=== PATIENT | male | born 1965 | race African-American/Black ===

== ENCOUNTER → 2021-11-05 13:19 | Outpatient (REF) | payer MEDICARE, MEDICAID, SELFPAY ==
--- NOTE | 2021-11-05 13:24 | ECG_ITS ---
Hook-up date: 2021-11-05 13:32:00 Duration: 25:00:00 Test Indications: ABNORMAL EKG Medications: 312180 QRS complexes 14 Ventricular ectopics which represent <1 % of total QRS comp. 95826 Supraventricular ectopics which represent 10 % of total QRS comp. * Paced QRS complexs which represent % of total QRS comp. VENTRICULAR ECTOPY 12 Isolated 0 Bigeminal Cycles 1 Couplets 0 Runs 0 Beats in Runs * Beats LONGEST at * BPM at :: -- * Beats FASTEST at * BPM at :: -- SUPRAVENTRICULAR ECTOPY 20055 Isolated 69 Couplets 103 Runs 335 Beats in Runs 5 Beats LONGEST at 112 BPM at 13:33:20 2021-11-05 3 Beats FASTEST at 118 BPM at 12:04:17 2021-11-06 HEART RATES 45 MIN at 04:29:08 2021-11-06 76 AVG 129 MAX at 11:27:23 2021-11-06 LONGEST RR 1.4000 secs at 07:16:08 2021-11-06 S-T LEVELS Channel 1 - 128 mm at 13:32:00 2021-11-05 - 128 mm at 13:32:00 2021-11-05 Channel 2 - 128 mm at 13:32:00 2021-11-05 - 128 mm at 13:32:00 2021-11-05 Channel 3 - 128 mm at 03:25:11 -- - 128 mm at 03:25:11 Basic rhythm Normal sinus rhythm No long pause or profound bradycardia Frequent Premature atrial complexes , total burden of 11% Very short bursts of SVEs, 3-5 beats Patient did not report any symptoms in the diary Referred By: Jaxon Osborne Overread By: REINA GAINES MD
== END ==
LOC: HO.CARD 13:19
PROVIDERS: PCP Internal Medicine; Visit Provider Internal Medicine
DX: R94.31 Abnormal electrocardiogram [ECG] [EKG] (principal); I49.1 Atrial premature depolarization
CPT/HCPCS: 93225; 93226

== ENCOUNTER 2022-02-19 13:19 | Outpatient (REF) | payer MEDICARE, MEDICAID, SELFPAY ==
--- NOTE | ~2022-02-19 | US_ITS ---
EXAMINATION: US CHEST CLINICAL INFORMATION: Growth of right lower anterior chest. COMPARISON: None TECHNIQUE: Limited ultrasound imaging of right anterior chest 6 mm from the right nipple was performed. FINDINGS: Limited imaging through the right anterior chest wall reveals no focal mass or fluid collection. US/US chest IMPRESSION: Unremarkable limited right anterior chest wall imaging. No focal mass seen.
== END 2022-02-19 13:20 | disposition home or self-care (01) ==
LOC: HO.US 13:19
PROVIDERS: Visit Provider Internal Medicine
DX: D49.2 Neoplasm of unspecified behavior of bone, soft tissue, and skin (principal)
CPT/HCPCS: 76604

== ENCOUNTER 2022-09-22 14:32 | Outpatient (REF) | payer MEDICARE, MEDICAID, SELFPAY | END 2022-09-22 14:33 | disposition home or self-care (01) | LOC: HO.SH 14:32 | PROVIDERS: Visit Provider Internal Medicine | DX: Z01.118 Encounter for examination of ears and hearing with other abnormal findings (principal); H93.293 Other abnormal auditory perceptions, bilateral | CPT/HCPCS: 92557; 92567; 92588 ==

== ENCOUNTER 2023-01-07 13:41 | Outpatient (REF) | payer MEDICARE, MEDICAID, SELFPAY ==
--- NOTE | ~2023-01-07 | XR_ITS ---
EXAMINATION: XR CHEST CLINICAL INFORMATION: Chest pain COMPARISON: None TECHNIQUE: 2 views of the chest were obtained. FINDINGS: There is hyperinflation. No pneumothorax, pleural reaction, infiltrate, or effusion. The heart is normal in size. The vascularity is normal. The costophrenic sulci are clear. The hilar and mediastinal contours are normal. No acute bony abnormality. There are mild degenerative changes spine. XR/XR chest 2V IMPRESSION: Hyperinflation. Lungs clear.
== END 2023-01-07 13:42 | disposition home or self-care (01) ==
LOC: HO.XRAY 13:41
PROVIDERS: PCP Internal Medicine; Visit Provider Family Medicine
DX: R07.9 Chest pain, unspecified (principal)
CPT/HCPCS: 71046

== ENCOUNTER → 2023-02-03 10:31 | Outpatient (BNVA) | payer MEDICARE, MEDICAID, SELFPAY | PROVIDERS: PCP Internal Medicine; Visit Provider Internal Medicine | DX: I49.1 Atrial premature depolarization (principal); R07.2 Precordial pain | CPT/HCPCS: 93005; 99202 ==

== ENCOUNTER 2024-10-06 15:54 | Outpatient (REF) | payer MEDICARE, MEDICAID, SELFPAY ==
[2024-10-06 17:48] LABS: MANUAL DIFF FLAG NO
[2024-10-06 17:55] LABS: Basophils Percent Auto 0.6 % (0-2); Eosinophils Absolute Auto 0.1 X10*3/uL (0.0-0.4); Eosinophils Percent Auto 2.9 % (0-4); Hematocrit 42.6 % (42.0-52.0); Imm Gran Abs Auto 0.01 X10*3/uL (0.00-0.03); Imm Gran Pct Auto 0.3 % (0.0-0.4); Lymphocytes Absolute Auto 1.6 X10*3/uL (1.2-4.9); Lymphocytes Percent Auto 48.4 % (20-40); Mean Corpuscular HGB Conc 32.9 g/dl (31.0-36.0); Mean Corpuscular Hemoglobin 29.2 pg (27.0-33.0); Mean Corpuscular Volume 88.9 fL (80.0-98.0); Mean Platelet Volume 11.4 fL (9.4-12.4); Monocytes Absolute Auto 0.3 X10*3/uL (0.1-1.2); Monocytes Percent Auto 9.7 % (2-11); Neutrophils Absolute Auto 1.3 x10*3/uL (2.0-8.3); Neutrophils Percent Auto 38.1 % (45-73); Platelet Count 143 X10*3/uL (160-400); Red Blood Count 4.79 X10*6/uL (4.60-5.80); Red Cell Distribution Width 12.4 % (11.0-16.0); White Blood Count 3.4 X10*3/uL (4.8-10.8)
[2024-10-06 18:16] LABS: Cholesterol 170 mg/dL (<200); HDL Cholesterol 74 mg/dL (>40); LDL Cholesterol Calculated 86 mg/dL (<100); Triglycerides 52 mg/dL (<150)
[2024-10-06 18:31] LABS: TSH reflex Free T4 0.82 uIU/mL (0.32-4.0)
[2024-10-09 08:23] LABS: HIV AB/AG Nonreactive (Nonreactive); HIV Num 1 0.07 S/CO (0.00-0.99); ~HepC Num1 0.21 S/CO (0.00-0.79); ~Hepatitis B Surface Antibody REACTIVE (Nonreactive); ~Hepatitis C Antibody Nonreactive (Nonreactive)
== END 2024-10-06 15:55 | disposition home or self-care (01) ==
LOC: HO.CHCLDS 15:54
PROVIDERS: Visit Provider Internal Medicine
DX: I10 Essential (primary) hypertension (principal); Z11.59 Encounter for screening for other viral diseases; Z11.3 Encounter for screening for infections with a predominantly sexual mode of transmission; Z11.4 Encounter for screening for human immunodeficiency virus [HIV]; A64 Unspecified sexually transmitted disease; M15.9 Polyosteoarthritis, unspecified; C61 Malignant neoplasm of prostate; D69.6 Thrombocytopenia, unspecified; Z72.89 Other problems related to lifestyle
CPT/HCPCS: 36415; 80061; 84443; 85025; 86704; 86706; 86803; 87340; 87389

== ENCOUNTER 2024-10-06 17:26 | Outpatient (REF) | payer MEDICARE, MEDICAID, SELFPAY ==
[2024-10-06 18:55] LABS: HIV AB/AG Nonreactive (Nonreactive); HIV Num 1 0.06 S/CO (0.00-0.99)
[2024-10-09 08:57] LABS: HBS Num1 55.14 mIU/mL (0-7.99); HBc Num1 0.24 S/CO (0.00-0.79); Hepatitis B Core Antibody Nonreactive (Nonreactive); Hepatitis B Surface Antigen Negative (Negative); ~HepC Num1 0.22 S/CO (0.00-0.79); ~Hepatitis B Surface Antibody REACTIVE (Nonreactive); ~Hepatitis C Antibody Nonreactive (Nonreactive)
== END 2024-10-06 17:27 | disposition home or self-care (01) ==
LOC: HO.LNP 17:26
PROVIDERS: Visit Provider Internal Medicine
DX: Z13.89 Encounter for screening for other disorder (principal)
CPT/HCPCS: 86704; 86706; 86803; 87340; 87389

== ENCOUNTER 2024-10-24 10:00 | Outpatient (AMB) | payer MEDICARE, MEDICAID, SELFPAY ==
--- NOTE | 2024-10-24 10:04 | MHC.OFFVIS ---
Intake Visit Reasons: Prostate Ca/BPH/Elevated PSA(Fam HX Prostate Ca) Intake Note: Patient is present for PROSTATE CA/BPH/ELEVATED PSA Urology Medication:NONE Antibiotic Allergy:NONE Blood Thinner:NONE Automatic Washer Mechanic Required: No Allergies No Known Allergies Allergy (Verified 10/24/24 10:05) HPI Comments Details: Alin is a pleasant male. He is a patient of . He seen for the following urologic conditions - prostate cancer Had been seen at [facility] with active surveillance At some point treatment options had been encouraged. He was scheduled for external beam radiation with short-term hormone management. Based upon a review of his notes it appears that he has low volume, grade group 1 prostate cancer. Would recommend continue surveillance. Given GnRH administered August can repeat lab work in January. Prostate cancer - Grade Group grade group 1 NCCN 08/19, 04/24 Adenocarcinoma of the prostate - NCCN low risk group - PSA at diagnosis 4.0 Diagnosis was reached by - needle biopsy Biopsy Date: 04/24 Histologic grade: [place] score: 3+3 Positive Biopsies: 2 Negative Biopsies: 10 (%) Positive: Low/1200 Associated Features: Negative TNM Classification of Malignant Tumours (TNM) - T1c Staging Imaging - PET-CT negative Attempt at Prolaris testing made. Insufficient tumor for analysis. Therapeutic plan: Repeat lab work in January. Continue active surveillance [facility] Medical History (Updated 10/24/24 @ 11:03 by Neri Lau MD) Prostate cancer OA (osteoarthritis) BPH (benign prostatic hyperplasia) Elevated PSA Surgical History (Updated 10/18/24 @ 10:38 by Izabel Dozier Jessica) History of left hip replacement History of right hip replacement History of orthopedic surgery Family History (Updated 02/03/23 @ 10:41 by Estrellita Riojas) Mother No problems noted. Father Prostate cancer Social History (Updated 02/03/23 @ 10:41 by Estrellita Riojas) Alcohol intake: never Patient Tobacco Use Status: Former Tobacco user Review of Systems Const Denies chills and Denies fever(s) Card Reports no additional complaints and Denies syncope Resp Denies cough GI Denies abdominal pain and Denies heartburn Reports as per HPI and Denies change in libido Neuro Denies syncope Psych Denies change in libido Endo Denies change in libido Physical Exam Const General: cooperative, healthy appearing, comfortable and no acute distress Orientation/consciousness: patient oriented x3 HEENT Face and sinus: Yes normal facial exam Mouth: moist mucous membranes Neck Neck: Yes normal visual inspection, Yes full ROM and Yes trachea midline Chest Chest palpation & inspection: normal inspection of the chest Resp Effort & Inspection: normal respiratory effort, able to speak in complete sentences and no respiratory distress GI Inspection: Yes normal to inspection Back/Spine/Pelvis Cervical Spine: normal cervical lordosis Thoracic/Lumbar Spine: thoracic and lumbar spine normal to inspection Skin General skin exam: no rashes or lesions noted Neuro General: patient oriented x3, gait normal, tone normal and moves all extremities Extrem General: Yes normal to inspection and Yes capillary refill normal Results AMB Urinalysis, Automated UA Leukoctes 0 Ghazala/uL Last Edit by mUesh Malloy CCM on 10/24/24 10:19 UA Nitrite Negative Last Edit by Umesh Malloy CCM on 10/24/24 10:19 UA Urobilinogen 0.2 mg/dL Last Edit by Umesh Malloy [facility] on 10/24/24 10:19 UA Protein 15 mg/dL Last Edit by Umesh Malloy [facility] on 10/24/24 10:19 UA pH 6.0 Last Edit by Umesh Malloy [facility] on 10/24/24 10:19 UA Blood 0 Nikolai/uL Last Edit by Umesh Malloy [facility] on 10/24/24 10:19 UA Specific [place] 1.025 Last Edit by Umesh Malloy CCM on 10/24/24 10:19 UA Ketone Negative Last Edit by Umesh Malloy CCM on 10/24/24 10:19 UA Bilirubin 0 mg/dL Last Edit by Umesh Malloy [facility] on 10/24/24 10:19 UA Glucose 0 mg/dL Last Edit by Umesh Malloy [facility] on 10/24/24 10:19 Results Reviewed Results Reviewed: Laboratory Last Values Urine pH (Auto) 6.0 10/24/24 10:19 Specific [place] (Auto) 1.025 10/24/24 10:19 Urine Protein (Auto) 15 mg/dL 10/24/24 10:19 Glucose (UA)(Auto) 0 mg/dL 10/24/24 10:19 Urine Ketones (Auto) Negative 10/24/24 10:19 Urine Blood (Auto) 0 Nikolai/uL 10/24/24 10:19 Urine Nitrite (Auto) Negative 10/24/24 10:19 Urine Bilirubin (Auto) 0 mg/dL 10/24/24 10:19 Urine Urobilinogen (Auto) 0.2 mg/dL 10/24/24 10:19 Leukocyte Esterase (Auto) 0 Ghazala/uL 10/24/24 10:19 Assessment & Plan Assessment & Plan (1) Prostate cancer: Comment: Doug 6 on 12/13 Biopsy Sites Code(s): C61 - Malignant neoplasm of prostate Category: Medical Plan Four month follow-up PSA and testosterone G Code G2211 Has been applied in accordance with CMS guidelines ( Medicare and Medicaid programs; [place] 2023 Payment Policies ) to convey the inherent complexity in ongoing patient care within the urology clinic. This deliberate utilization aligns with the visits complexity associated with medical care services serving as a focal point for necessary healthcare, addressing the patient's singular serious or complex condition. This judicious use ensure was appropriate reimbursement, especially in the context of managing such conditions within our specialized, longitudinal urologic practice. This patient has a complex and chronic urologic condition that requires longitudinal follow-up. CMS, Medicare and Medicaid programs; [place] 2023 Payment Policies Fed. Reg 88 (81): 51184-93677 (Jun.072022) Orders: Orders AMB Urinalysis Automated Today Z13.9 - Encounter for screening, unspecified Prostate Specific Antigen 4 Months C61 - Malignant neoplasm of prostate Testosterone, Total 4 Months C61 - Malignant neoplasm of prostate Patient Instructions: Imaging studies, laboratory and physical exam results were discussed and reviewed in detail. No major barriers to patient understanding were identified. An opportunity to ask questions regarding the treatment plan was provided. All questions were answered. The patient expressed understanding and agreement with the above treatment plan. The patient is aware they should contact our office by phone for worsening of their current condition or the appearance of new urologic symptoms. Compliance is encouraged with any medications and followup testing that is ordered. It is a privilege to participate in the urologic care of your patient. If you have any questions or concerns regarding treatment for the above conditions, or other urologic issues, please do not hesitate to contact me. The office telephone contact is [phone]. This note is constructed using voice recognition software. While every effort has been made to ensure accuracy retanner errors may have been included. Yours sincerely, Dr Neri Lau MD, [facility] - Urology Providers of Expert, Compassionate Care for the Genitourinary System Coding Level of Care Code New Pt Level 4 (65912) Complex EM visit Add On G2211 Diagnoses Prostate cancer C61
== END 2024-10-24 11:10 | disposition home or self-care (01) ==
PROVIDERS: PCP Internal Medicine; Visit Provider Urology
DX: C61 Malignant neoplasm of prostate (principal); Z13.9 Encounter for screening, unspecified
CPT/HCPCS: 99204; G2211

== ENCOUNTER → 2024-10-24 10:00 | Outpatient (BNVA) | payer MEDICARE, MEDICAID, SELFPAY | PROVIDERS: PCP Internal Medicine; Visit Provider Urology | DX: C61 Malignant neoplasm of prostate (principal) | CPT/HCPCS: 81003; 99202 ==

== ENCOUNTER 2024-12-26 13:15 | Outpatient (AMB) | payer MEDICARE, MEDICAID, SELFPAY ==
[2024-12-26 13:19] VITALS: BP 128/90; PULSE 64; O2SAT 100; BMI 29.4
--- NOTE | 2024-12-26 13:19 | MHC.OFFVIS ---
Vital Signs 12/26/24 13:19 Height 6 ft 1 in Weight 222 lb 10.67 oz BMI 29.4 BP 128/90 H Blood Pressure Location Rt brachial Position Sitting Pulse 64 Pulse Source Pulse Oximeter Pulse Oximetry (%) 100 Oxygen Delivery Method Room Air Intake Visit Reasons: Colonoscopy Screening Intake Note: NEW PATIENT for recall colonoscopy screening. Pt reports last ~ 6 years ago. [facility]. Chief Complaint; Pt denies any GI concerns currently. Pt does seem to be rather agitated when being asked questions by MA. Document Clerk Required: No Accompanied by: Self / Same As Patient Allergies No Known Allergies Allergy (Verified 12/26/24 13:19) HPI HPI Colonoscopy Screening: Details: 59 year old? male with past medical history of hypertension, prostate CA, PAC is here today for pre colonoscopy screening.? Patient was sent to us by his PCP.? Last colonoscopy about 6 years ago at [facility].? Patient denies any gastrointestinal symptoms in the past or at present.? Denies any personal or family history of gastrointestinal disease, colon polyps, or CRC.? Denies history of difficulty with sedation or anesthesia in the past.? Negative for history of sleep apnea.? Denies any history of cardiac, renal, pulmonary, or hepatic disease.?? No history of infectious? diseases like hepatitis A, B, C, HIV or tuberculosis.? Patient is not on any anticoagulation [facility] Medical History Prostate cancer OA (osteoarthritis) BPH (benign prostatic hyperplasia) Elevated PSA Surgical History History of left hip replacement History of right hip replacement History of orthopedic surgery Family History Mother No problems noted. Father Prostate cancer Social History Alcohol intake: never Patient Tobacco Use Status: Former Tobacco user Review of Systems Const Denies weight gain and Denies weight loss ENT Reports no additional complaints, Denies dysphagia and Denies odynophagia Card Reports no additional complaints Resp Reports no additional complaints GI Denies abdominal pain, Denies belching, Denies melena, Denies bloating, Denies change in bowel habits, Denies dysphagia, Denies excessive flatus, Denies dyspepsia, Denies heartburn, Denies diarrhea, Denies loose stools, Denies nausea, Denies odynophagia and Denies vomiting Reports no additional complaints Musc Reports no additional complaints Neuro Reports no additional complaints Psych Reports no additional complaints Endo Reports no additional complaints Physical Exam Vital Signs: Last Vital Signs Pulse 64 12/26/24 13:19 BP 128/90 H 12/26/24 13:19 Pulse Ox 100 12/26/24 13:19 Oxygen Delivery Method Room Air 12/26/24 13:19 BMI result Body Mass Index 29.4 Const General: healthy appearing, no acute distress and well developed Nutritional Appearance: well nourished Orientation/consciousness: patient oriented x3 Resp Effort & Inspection: normal respiratory effort, able to speak in complete sentences, no tracheal deviation and symmetric chest movement Auscultation: clear to auscultation bilaterally Cardio Rate: regular rate GI Inspection: Yes normal to inspection and No distended Palpation (GI): Soft to palpation, not firm, nontender and No hepatosplenomegaly present Auscultation: normal bowel sounds General: Yes no CVA tenderness Back/Spine/Pelvis Back: no CVA tenderness Skin General skin exam: elasticity normal, turgor normal and dry skin Neuro General: patient oriented x3 Psych Appearance: grossly normal Mental Status: mental status grossly normal Assessment & Plan Assessment & Plan (1) Screen for colon cancer: Code(s): Z12.11 - Encounter for screening for malignant neoplasm of colon Plan Patient denies any GI, cardiac or respiratory symptoms.? Denies any issues with anesthesia in the past.? Denies any history of sleep apnea.? No history infectious diseases in the past or present.? Not on any anticoagulation therapy.? No family or personal history of colon cancer or polyps.? Patient denies melena, hematochezia, unintentional weight loss or ribbon like stools.? Discussed at length the pre-procedure,? prep, diet & medications as well as what to expect prior, during and after the procedure.?? Stressed the importance of good bowel prep.? Recommended the use of Vaseline or Calmoseptine OTC & baby wipes with bowel movements to promote comfort.? ?Patient verbalizes understanding and agrees to plan of care.? He was given the opportunity to ask questions and all questions answered.? We will see him after the procedure.? Medications: New bisacodyl (Dulcolax (bisacodyl)) take 4 tabs at noon the day before your colonoscopy 20 mg (4 x 5 mg) PO ONCE 4 tabs 0RF 1 day Z12.11 - Encounter for screening for malignant neoplasm of colon polyethylene glycol 3350 (Miralax) As directed by gastroenterology department at [facility] 238 grams PO ONCE 238 grams 0RF Z12.11 - Encounter for screening for malignant neoplasm of colon Coding Level of Care Code New Pt Level 3 (33515) Diagnoses Screen for colon cancer Z12.11 Time Spent (min) 40 Comment 30 minutes spent with patient and additional 10 minutes spent reviewing his records
--- OUTSIDE RECORDS SUMMARY | 2024-12-26 16:15 | XMS_ITS | Clinical Summary ---
Author Organization [employer] Address [address] [place] [address] 7 [place] [address] Care Team Providers Care Clinical Allergist Name Role Phone Jaxon Osborne MD Primary Care Provider Allergies No known active allergies Medications loratadine (Claritin) 10 MG tablet Take 1 tablet by mouth at bed time. 02/25/20 22 Active albuterol 108 (90 Base) MCG/ACT inhalerIndicatio ns:Asthma, unspecified asthma severity, unspecified whether complicated, unspecified whether persistent Inhale 2 puffs every 4 (four) hours if needed for wheezing. 18 g 5 01/06/20 23 Active amoxicillin (Amoxil) 500 MG capsule Take 2 gm (4 tablets) 1 hour before dental appt. 12 capsule 01/23/20 23 Active amoxicillin (Amoxil) 500 MG tablet Take 2 mg (4 tablets) 1 hour before dental appt. 12 tablet 04/09/20 23 Active meloxicam (Mobic) 15 MG tablet 05/27/20 23 Active fluticasone (Flonase) 50 MCG/ACT nasal spray SHAKE LIQUID AND USE 1 TO 2 SPRAYS IN EACH NOSTRIL EVERY DAY NEEDED 16 g 1 09/10/20 23 Active amoxicillin (Amoxil) 500 MG capsule Take 4 tabs (2 grams) 1 hour prior to dental procedure 4 capsule 3 04/17/20 24 Active amLODIPine (Norvasc) 5 MG tabletIndication s:Essential hypertension Take 1 tablet (5 mg) by mouth Once per day. 90 tablet 3 10/06/20 24 Active cholecalciferol (Vitamin D3) 25 MCG (1000 UT) tabletIndication s:Vitamin D deficiency TAKE 1 TABLET BY MOUTH EVERY MORNING 60 tablet 11 12/19/19 25 Active cholecalciferol (Vitamin D-3) 25 MCG (1000 UT) tabletIndication s:Vitamin D deficiency Take 1 tablet (25 mcg) by mouth in the morning. 60 tablet 11 09/07/20 23 025 Discontinued Active Problems Problem Noted Date Diagnosed Date Essential hypertension 01/05/2023 Chest pain 01/05/2023 Malignant tumor of prostate 02/02/2019 Chronic benign neutropenia 05/11/2017 Thrombocytopenic disorder 05/11/2017 Hyperplasia of prostate 05/06/2015 Generalized osteoarthritis 05/06/2010 Encounters Date Type Department Care Team Description 12/15/2024 Refill [facility] [address] [place] [address] Jaxon Osborne MD Vitamin D deficiency 12/14/2024 2:00 PM EST Office Visit [facility] [address] [place] [address] Leoncio Oshea DMD Dental caries (Primary Dx) 11/28/2024 Telephone [facility] [address] [place] [phone] Jaxon Osborne MD 11/09/2024 Telephone [facility] [address] [place] [phone] Jaxon Osborne MD 10/18/2024 2:00 PM EST Office Visit [facility] [address] [place] [address] Nahun Osborne Dental calculus (Primary Dx) 10/09/2024 Telephone [facility] [address] [place] [address] Jaxon Osborne MD Results (Labwork) 10/09/2024 Telephone [facility] [address] [place] [phone] Jaxon Osborne MD 10/06/2024 2:30 PM EST Office Visit [facility] [address] [place] [address] Jaxon Osborne MD Essential hypertension (Primary Dx); Screening for colon cancer; Encounter for immunization; Encounter for screening for other viral diseases; Screening for HIV (human immunodeficiency virus); Screen for STD (sexually transmitted disease); STD (male) 10/06/2024 Travel from Last 3 Months Immunizations Name Administration Dates Next Due Hep B, adult 03/26/2015,11/14/2014,09/10/2014 Influenza injectable quadriv alent IIV4 with preservative 08/15/2019,07/27/2018 Influenza injectable quadriv alent preservative free 09/07/2023,09/10/2022,08/01/2020 Influenza, seasonal, injecta ble, preservative free 10/06/2024 Pneumococcal Conjugate PCV 20 05/30/2024 Tdap 11/14/2014 Social History Tobacco Use Types Packs/Day Years Used Date Smoking Tobacco: Never Passive Smoke Exposure: Never Smokeless Tobacco: Never Tobacco Cessation:Counseling Given: Not Answered Alcohol Use Standard Drinks/Week Comments Never 0 (1 standard drink = 0.6 oz pur e alcohol) Depression Answer Date Recorded Patient Health Questionnaire-9 Score 0 01/08/2023 Housing Stability Answer Date Recorded What is your housing situation today? I have mavis rivera 03/02/[address] you li ve. Do you have problems with any of the following? None of the above 03/02/2024 Food Insecurity Answer Date Recorded Within the past 12 months, y ou worried that your food would run out before you got money to buy more: Never True 03/02/2024 Within the past 12 months,th e food you bought just didn't last and you didn't have enough money to get more: Never True 12/2023 Transportation Answer Date Recorded In the past 12 months, has l ack of transportation kept you from medical appts, meetings, work or from getting things needed for daily living? No 03/02/2024 Utilities Answer Date Recorded In the past 12 months, has t he electric, gas, oil or water company threatened to shut off services in your home? No 03/02/2024 Depression Answer Date Recorded Patient Health Questionnaire-2 Score 0 01/08/2023 Sex and Gender Information Value Date Recorded Sex Assigned at Male 08/31/2022 10:22 AM EDT Legal Sex Male 10:22 AM EDT Gender Identity Male 08/31/2022 10:22 AM EDT Sexual Orientation Straight 08/31/2022 10 :22 AM EDT Last Filed Vital Signs Vital Sign [place] Time Taken Comments Blood Pressure 118/70 12/14/2024 2:12 PM EST Pulse 65 10/18/2024 2:14 PM EST Temperature 36.8 ??C (98.3 ??F) 10/06/2024 2:35 PM ES T Respiratory Rate 16 10/06/2024 2:35 PM EST Oxygen Saturation 99% 10/06/2024 2:35 PM EST Inhaled Oxygen Concentration - - Weight 94.6 kg (208 lb 9.6 oz) 10/06/2024 2:35 P M EST Height 185.4 cm (6' 1 ) 10/06/2024 2:35 PM EST Body Mass Index 27.52 10/06/2024 2:35 PM EST Plan of Treatment Upcoming Encounters Date Type Department Care Team (Late st Contact Info) Description 01/10/2025 3:30 PM EDT Office Visit [facility] [address] [place] [address] Jaxon Osborne MD [address] [place] [address] Health Maintenance Due Date Last Done Comments CT Colonography 1964 Colonoscopy 1964 Colorectal Cancer Screening 1964 FIT DNA/Cologuard 1964 FIT 1964 FOBT 1964 Sigmoidoscopy 1964 Alcohol/Substance Use Screening 1976 Hepatitis A Vaccines (1 of 2 - Risk 2-dose series) 1983 Zoster Vaccines (1 of 2) 1983 Depression Screening 01/09/2024 01/08/2023, 01/09/20 23 RSV Patients and Patients Aged 60 years or older (1 - Risk 60-74 years 1-dose series) 2024 Dental Oral Exam 10/18/2024 04/17/2024 DTaP/Tdap/Td Vaccines (2 - Td or Tdap) 11/14/2024 11/14/2014 Dental X-Ray: Bitewings 02/10/2025 02/10/20 24, 08/17/2023, 07/29/2023, Additional history exists SDOH Screening 03/02/2025 03/02/2024 Dental Prophylaxis 04/19/2025 10/18/2024, 0 04/17/2024, 08/17/2023, Additional history exists COVID-19 Vaccine (3 - Pfizer risk series) 10/06/2025 03/27/2021, 03/05/2021 Postponed from 04/24/2021 (Patient Refused) Tobacco Screening 12/14/2025 12/14/2024 Dental X-Ray: Full Mouth 02/10/2027 02/10/2024, 08/01 Lipid Panel 10/06/2029 10/06/2024, 08/02, 04/11/2020 Hepatitis B Vaccines Completed 03/26/2015, 11/14/2014, 09/10/2014 Pneumococcal Vaccine: 50+ Years Completed 05/30/2024 HIV Screening Completed 10/06/2024 Hepatitis C Screening Completed 10/06/2024 Influenza Vaccine Completed 10/06/2024, , 09/10/2022, Additional history exists HIB Vaccines Aged Out No longer eligi ble based on patient's age to complete this topic HPV Vaccines Aged Out No longer eligi ble based on patient's age to complete this topic IPV Vaccines Aged Out No longer eligi ble based on patient's age to complete this topic Meningococcal Vaccine Aged Out No clotilde nazario eligible based on patient's age to complete this topic RSV under 20 months Aged Out No longe r eligible based on patient's age to complete this topic Rotavirus Vaccines Aged Out No longer eligible based on patient's age to complete this topic Procedures Procedure Name Priority Date/Time Associated Diagnosis Comments CASE PRESENTATION, DETAILED AND EXTENSIVE TREATMENT PLANNING Routine 12/14/2024 2:00 PM EST Dental caries 17 O RESIN-BASED COMPOSITE - 1 SURF, POSTERIOR Routine 12/14/2024 2:00 PM EST Dental caries 18 DO RESIN-BASED COMPOSITE - 2 SURF, POSTERIOR Routine 12/14/2024 2:00 PM EST Dental caries ORAL HYGIENE INSTRUCTIONS Routine 10/18/2024 2:00 PM EST PROPHYLAXIS - ADULT Routine 10/18/2024 2 :00 PM EST CASE PRESENTATION, DETAILED AND EXTENSIVE TREATMENT PLANNING Routine 10/18/2024 2:00 PM EST HIV 1/2 ANTIGEN/ANTIBODY, FOURTH GENERATION W/RFL Routine 10/06/2024 3:56 PM EST Essential hypertension Encounter for immunization Screening for HIV (human immunodeficiency virus) Screen for STD (sexually transmitted disease) STD (male) HEPATITIS C AB W/REFL TO HCV RNA, QN, PCR Routine 10/06/2024 3:56 PM EST Essential hypertension Encounter for immunization Screen for STD (sexually transmitted disease) HEPATITIS B SURFACE ANTIBODY, QUALITATIVE Routine 10/06/2024 3:56 PM EST Essential hypertension Encounter for immunization Encounter for screening for other viral diseases Screen for STD (sexually transmitted disease) LIPID PANEL, STANDARD Routine 10/06/2024 3:56 PM EST Essential hypertension Generalized osteoarthritis Malignant tumor of prostate (CMS/HCC) Thrombocytopenic disorder (CMS/HCC) TSH W/REFLEX TO FT4 Routine 10/06/2024 3 :56 PM EST Essential hypertension Generalized osteoarthritis Malignant tumor of prostate (CMS/HCC) Thrombocytopenic disorder (CMS/HCC) CBC WITH AUTO DIFFERENTIAL Routine 10/06/2024 3:56 PM EST Essential hypertension Generalized osteoarthritis Malignant tumor of prostate (CMS/HCC) Thrombocytopenic disorder (CMS/HCC) PERIODIC ORAL EVALUATION - ESTABLISHED PATIENT Routine 04/17/2024 1:00 PM EDT Dental caries PANORAMIC RADIOGRAPHIC IMAGE Routine 02/10/2024 1:00 PM EDT BITEWING - SINGLE RADIOGRAPHIC IMAGE Routine 02/10/2024 1:00 PM EDT from Last 3 Months or Most Recently Relevant to Health Maintenance Results * TSH W/Reflex to FT4 (10/06/2024 3:56 PM EST) TSH reflex Free T4 0.82 0.32 - 4.0 uIU/mL [facility] Blood Venous blood specimen / Unknown 10/06/2024 3:56 PM EST 10/06/2024 5:39 PM EST us Jaxon Osborne MD LAB BLOOD ORDERABLES Final Result [facility] [address] [place], [place] [phone] * (ABNORMAL) CBC auto differential (10/06/2024 3:56 PM EST) White Blood Count 3.4(L) 4.8 - 10.8 X10*3/uL [facility] Red Blood Count 4.79 4.60 - 5.80 X10*6/uL [facility] Hemoglobin 14.0 14.0 - 18.0 g/dl [facility] Hematocrit 42.6 42.0 - 52.0 % [facility] Mean Corpuscular Volume 88.9 80.0 - 98.0 fL [facility] Mean Corpuscular Hemoglobin 29.2 27.0 - 33.0 pg [facility] Mean Corpuscular HGB Conc 32.9 31.0 - 36.0 g/dl [facility] Red Cell Distribution Width 12.4 11.0 - 16.0 % [facility] Platelet Count 143(L) 160 - 400 X10*3/uL [facility] Mean Platelet Volume 11.4 9.4 - 12.4 fL [facility] Neutrophils Percent Auto 38.1(L) 45 - 73 % [facility] Imm Gran Pct Auto 0.3 0.0 - 0.4 % [facility] Lymphocytes Percent Auto 48.4(H) 20 - 40 % [facility] Monocytes Percent Auto 9.7 2 - 11 % [facility] Eosinophils Percent Auto 2.9 0 - 4 % [facility] Basophils Percent Auto 0.6 0 - 2 % [facility] NRBC Pct Auto 0.0 0.0 - 0.2 /100WBC [facility] Neutrophils Absolute Auto 1.3(L) 2.0 - 8.3 x10*3/uL [facility] Imm Gran Abs Auto 0.01 0.00 - 0.03 X10*3/uL [facility] Lymphocytes Absolute Auto 1.6 1.2 - 4.9 X10*3/uL [facility] Monocytes Absolute Auto 0.3 0.1 - 1.2 X10*3/uL [facility] Eosinophils Absolute Auto 0.1 0.0 - 0.4 X10*3/uL [facility] Basophils Absolute Auto 0.0 0.0 - 0.2 X10*3/uL [facility] NRBC Abs Auto 0.000 0.0 - 0.012 X10*3/uL [facility] Blood Venous blood specimen / Unknown 10/06/2024 3:56 PM EST 10/06/2024 5:39 PM EST Jaxon Osborne MD LAB BLOOD ORDERABLES Final Result Performing Organization Address [facility] Co de Phone Number [facility] [address] [place] [phone] * Hepatitis C Antibody with Reflex to HCV, RNA, Quantitative, Real-Time PCR (10/06/2024 3:56 PM EST) Hepatitis C Antibody Nonreactive Nonreactive [facility] Comment:Antibodies to HCV no t detected; does not exclude early acuteHCV infection. Blood Venous blood specimen / Unknown 10/06/2024 3:56 PM EST 10/06/2024 5:39 PM EST us Jaxon Osborne MD LAB BLOOD ORDERABLES Final Result Performing Organization Address City/[facility] Co de Phone Number [facility] [address] [place] [phone] * HIV-1/2 Antigen and Antibodies, Fourth Generation, with Reflexes (10/06/2024 3:56 PM EST) HIV AB/AG Nonreactive Nonreactive [facility] Comment:HIV-1 p24 Ag and/or HIV-1/HIV-2 Ab not detected.A test result that is nonreactive does not exclude thepossibility of exposure to or infection with HIV-1 and/orHIV-2. Nonreactive results in this assay for individualswith prior exposure to HIV-1 and/or HIV-2 may be due toantigen and antibody levels that are below the limit ofdetection of this assay.The Icinetic Alinity HIV Ag/Ab Combo assay result andsupplemental assay results should be interpreted inconjunction with the patient's clinical presentation,history and other laboratory results. If the results areinconsistent with clinical evidence, additional testing issuggested to confirm the result. Blood Venous blood specimen / Unknown 10/06/2024 3:56 PM EST 10/06/2024 5:39 PM EST us Jaxon Osborne MD LAB BLOOD ORDERABLES Final Result Performing Organization Address [facility] Co de Phone Number [facility] [address] [place] [phone] * Hepatitis B Surface Antibody, Qualitative (10/06/2024 3:56 PM EST) ~Hepatitis B Surface Antibody REACTIVE Nonreactive [facility] Comment:REACTIVE: > 11.99 mI U/mL Blood Venous blood specimen / Unknown 10/06/2024 3:56 PM EST 10/06/2024 5:39 PM EST us Jaxon Osborne MD LAB BLOOD ORDERABLES Final Result Performing Organization Address [facility] Co oh Phone Number [facility] [address] [place] [phone] * Lipid Panel, Standard (10/06/2024 3:56 PM EST) Triglycerides 52 <150 mg/dL [facility] Comment:Desirable Triglyceri de: less than 150 mg/dLBorderline High Triglyceride 150-199 mg/dLHigh Triglyceride: 200-499 mg/dLVery High Triglyceride: greater than or equal to 5OO mg/dL Cholesterol 170 <200 mg/dL [facility] Comment:Desirable Cholestero l: less than 200 mg/dLBorderline High Cholesterol: 200-239 mg/dLHigh Cholesterol: greater than 239 mg/dL LDL Cholesterol Calculated 86 <100 mg/dL [facility] Comment:Desirable LDL: less than 100 mg/dLNear Optimal/Above Optimal LDL: 110- 129 mg/dLBorderline High LDL: 130-159 mg/dLHigh LDL: 160-189 mg/dLVery High LDL: greater than or equal to 190 mg/dL HDL Cholesterol 74 >40 mg/dL [facility] Comment:Desirable HDL: great er than 40 mg/dL Note: This HDL assay may give artificially low results in patients with liver disease. Blood Venous blood specimen / Unknown 10/06/2024 3:56 PM EST 10/06/2024 5:39 PM EST us Jaxon Osborne MD LAB BLOOD ORDERABLES Final Result [facility] [address] [place] [phone] [phone] from Last 3 Months Insurance MEDICARE [facility] STAND ADULT Care Teams Clinical Allergist Relationship Specialty Start Date End Date Jaxon Osborne MD [address] [place] [phone] PCP - General Internal Medicine 03/07/12
--- OUTSIDE RECORDS SUMMARY | 2024-12-26 16:15 | XMS_ITS | Encounter Summary ---
Author Organization [employer] Address [address] [facility] [address] [place] [address] Care Team Providers Care Bridge Carpenter Name Role Phone Jaxon Osborne MD Primary Care Provider [phone] Encounter Details Date Type Department Care Team ([facility] st Contact Info) Description 11/28/2024 Telephone [facility] [address] [place] [address] Jaxon Osborne MD [address] [place] [address] Social History Tobacco Use Types Packs/Day Years Used Date Smoking Tobacco: Never Passive Smoke Exposure: Never Smokeless Tobacco: Never Alcohol Use Standard Drinks/Week Comments Never 0 (1 standard drink = 0.6 oz pur e alcohol) Depression Answer Date Recorded Patient Health Questionnaire-9 Score 0 01/08/2023 Housing Stability Answer Date Recorded What is your housing situation today? I have mavisoswald rivera 03/02/[address] you [...] Orientation Straight 08/31/2022 10 :22 AM EDT documented as of this encounter Plan of Treatment Upcoming Encounters Date Type Department Care Team (Late st Contact Info) Description 01/10/2025 3:30 PM EDT Office Visit [facility] [address] [place] [address] Jaxon Osborne MD [address] [place] [address] documented as of this encounter Visit Diagnoses Not on filedocumented in this encounter Additional Health Concerns Assessment Noted Time PHQ-9 Depression Total Score: 0 01/09/20 23 2:46 PM EST documented as of this encounter Care Teams Bridge Carpenter Relationship Specialty Start Date End Date Jaxon Osborne MD [address] [place] [address] PCP - General Internal Medicine 03/07/12 documented as of this encounter
--- OUTSIDE RECORDS SUMMARY | 2024-12-26 16:15 | XMS_ITS | Encounter Summary ---
Author Organization [employer] Address [address] [place] [phone] Care Team Providers Care Behavior Analyst Name Role Phone Jaxon Osborne MD Primary Care Provider [phone]- [phone] Encounter Details Date Type Department Care Team (Latest Contact Info) Description 06/08/2022 Abstract [facility] CONVERSIONS Dental, Provider, DDS Social History Tobacco Use Types Packs/Day Years Used Date Smoking Tobacco: Never Assessed Sex and Gender Information Value Date Recorded Sex Assigned at Male 08/31/2022 10:22 AM EDT Legal Sex Male 10:22 AM EDT Gender Identity Male 08/31/2022 10:22 AM EDT Sexual Orientation Straight 08/31/2022 10 :22 AM EDT documented as of this encounter Plan of Treatment Upcoming Encounters Date Type Department Care Team (Late st Contact Info) Description 01/10/2025 3:30 PM EDT Office Visit [facility] [address] [place] [address] Jaxon Osborne MD [address] [place] [address] documented as of this encounter Visit Diagnoses Not on filedocumented in this encounter Care Teams Behavior Analyst Relationship Specialty Start Date End Date Jaxon Osborne MD [address] [place] [address] PCP - General Internal Medicine 03/07/12 documented as of this encounter
--- OUTSIDE RECORDS SUMMARY | 2024-12-26 16:15 | XMS_ITS | Clinical Summary ---
Author Organization [facility] Address [address] [place] [address] Phone Care Team Providers Care Multimedia Journalist Name Role Phone Jaxon Osborne MD Primary Care Provider +1 -[phone] Allergies No known active allergies Medications meloxicam (MOBIC) 15 mg tablet Take 1 Tablet by mouth daily as needed for Pain (TAKE WITH FOOD AND STAY HYDRATED). 05/27/2023 Active albuterol HFA (PROAIR HFA ; PROVENTIL HFA ; VENTOLIN HFA) 90 mcg/actuation inhaler Inhale 2 Puffs into the lungs. 01/05/2023 Active amLODIPine (NORVASC) 5 mg tablet Take 1 Tablet by mouth. 11/11/2022 Active amoxicillin (AMOXIL) 500 mg capsule Take 2 gm (4 tablets) 1 hour before dental appt. 01/22/2023 Active cholecalciferol (VITAMIN D-3) 25 mcg (1,000 unit) tablet Take 25 mcg by mouth. 09/07/2023 Active fluticasone propionate (FLONASE) 50 mcg/actuation nasal spray SHAKE LIQUID AND USE 1 TO 2 SPRAYS IN EACH NOSTRIL EVERY DAY NEEDED 11/11/2022 Active loratadine (CLARITIN) 10 mg tablet Take 1 Tablet by mouth. 02/24/2022 Active Active Problems Problem Noted Date Diagnosed Date Post-traumatic osteoarthritis of right knee 05/02 Primary osteoarthritis of left knee 05/27/2023 PVC (premature ventricular contraction) 04/23/20 Essential hypertension 01/05/2023 Right hip pain 04/17/2021 Overview (09/26/2024): Last Assessment & Plan: The etiology of the patient's right hip region pain is uncertain. The area of greatest involvement appears to be the groin and this could correlate with acetabular abnormality. X-rays show no evidence of loosening. Nevertheless, the patient does get episodic pain and has weakness of right hip flexion particularly above 90 degrees. Differential diagnoses for the pain include acetabular loosening, soft tissue impingement, other nonspecific soft tissue pain. Since the pain seems to come and go, I do not think that loosening of the acetabular component is a very likely etiology. Instead, this is most likely soft tissue in origin. I will have the patient begin physical therapy to address weakness, stiffness, and pain. He will follow up with me after about 4 weeks of therapy treatment. A referral was entered today for physical therapy here upstairs. Status post total replacement of right hip 04/17 Malignant tumor of prostate 02/02/2019 Chronic benign neutropenia 05/11/2017 Thrombocytopenic disorder 05/11/2017 Hyperplasia of prostate 05/06/2015 Encounters Date Type Department Care Team Description 11/23/2024 1:45 PM EST Office Visit Orthopedic Surgery - [address] [phone] Javier Briggs, DPM Dermatophytosis of nail (Primary Dx); Ingrowing nail; Acquired hammer toe of right foot; Hammer toe of left foot; Verruca plantaris from Last 3 Months Surgical History Surgery Date Site/Laterality Comments OTHER SURGICAL HISTORY Bilateral PROCEDURE: MN ARTHRP ACETBLR/PROX FEM PROSTC AGRFT/ALGRFT; COMMENT: Right 06/08/2017, Left 02/08/2018, Dr Nascimento Medical History Medical History Date Comments Asthma DX:Asthma Essential hypertension 01/05/2023 DX:Essent ial hypertension Social History Tobacco Use Types Packs/Day Years Used Date Smoking Tobacco: Never Smokeless Tobacco: Never Tobacco Cessation:Counseling Given: Not Answered Alcohol Use Standard Drinks/Week Comments Never 0 (1 standard drink = 0.6 oz pur e alcohol) Sex and Gender Information Value Date Recorded Sex Assigned at Not on file Legal Sex Male 7:10 AM EST Gender Identity Not on file Sexual Orientation Not on file Obstetrics History Last Filed Vital Signs Vital Sign Reading Time Taken Comments Blood Pressure - - Pulse - - Temperature - - Respiratory Rate - - Oxygen Saturation - - Inhaled Oxygen Concentration - - Weight 103 kg (228 lb) 11/23/2024 1:38 PM EST Height 185.4 cm (6' 0.99 ) 11/23/2024 1:38 PM ES T Body Mass Index 30.09 11/23/2024 1:38 PM EST Plan of Treatment Upcoming Encounters Date Type Department Care Team (Late st Contact Info) Description 02/22/2025 1:15 PM EDT Office Visit Orthopedic Surgery - [place] [address] [phone] Javier Briggs, DPM [address] [address] Health Maintenance Due Date Last Done Comments Zoster Vaccines (1 of 2) 1983 COVID-19 Vaccine (3 - Pfizer risk series) 04/24/2021 03/27/2021, 03/05/2021 Colorectal Cancer Screening: Colonoscopy 10/04/2022 Medicare Annual Wellness Visit 10/04/2022 Social Influencers of Health Screening 10/04/2022 Hypertension/CHF/CAD Annual BMP Blood Test 01/07/2024 01/06/2023 Depression Screening 01/09/2024 01/08/2023 RSV Immunization Patients 60+ Years Old (1 - Risk 60-74 years 1-dose series) 2024 DTaP,Tdap,and Td Vaccines (2 - Td or Tdap) 11/14/2024 11/14/2014 Cholesterol Screening (Lipid Panel) 10/06/2029 10/06/2024, 08/28/2021 Hepatitis B Vaccines Completed 03/26/2015, 11/14/2014, 09/10/2014 Pneumococcal Vaccine: 50+ Years Completed 05/30/2024 Pneumococcal Vaccine: Pediatrics (0 to 5 Years) and At-Risk Patients (6 to 64 Years) Completed 05/30/2024 HIV Screening Completed 10/06/2024 Hepatitis C Screening Completed 10/06/2024 Influenza Vaccine Completed 10/06/2024, , 09/10/2022, Additional history exists HIB Vaccines Aged Out No longer eligi ble based on patient's age to complete this topic HPV Vaccines Aged Out No longer eligi ble based on patient's age to complete this topic Hepatitis A Vaccines Aged Out No long er eligible based on patient's age to complete this topic IPV Vaccines Aged Out No longer eligi ble based on patient's age to complete this topic MMR Vaccines Aged Out No longer eligi ble based on patient's age to complete this topic Meningococcal ACWY Vaccine Aged Out N o longer eligible based on patient's age to complete this topic Meningococcal B Vacine Aged Out No lo nger eligible based on patient's age to complete this topic RSV Immunization Patients Under 20 months Aged Out No longer eligible based on patient's age to complete this topic Varicella Vaccines Aged Out No longer eligible based on patient's age to complete this topic Procedures Procedure Name Priority Date/Time Associated Diagnosis Comments ANNUAL BMP BLOOD TEST Routine 01/06/2023 LIPID PANEL Routine 08/28/2021 from Last 3 Months or Most Recently Relevant to Health Maintenance Results * Annual BMP Blood Test (01/06/2023) Pathologist [facility] Annual BMP Blood Test abstracted Historical Provider HEALTH MAINTENANCE Final Result * Lipid panel (08/28/2021) Pathologist [facility] Triglycerides 0 0 - 0 mg/dL Comment:no interpretation Cholesterol 0 0 - 0 mg/dL Comment:no interpretation HDL 0 0 - 0 mg/dL Comment:no interpretation LDL Cholesterol 0 0 - 0 mg/dL Comment:no interpretation Blood Venous blood specimen / Unknown Historical Provider LAB BLOOD ORDERABLES Leticia l Result from Last 3 Months or Most Recently Relevant to Health Maintenance Insurance MEDICARE MEDICAID - [place] Care Teams Multimedia Journalist Relationship Specialty Start Date End Date Jaxon Osborne MD [address] [place] [address] PCP - General Internal Medicine 06/24/22
--- OUTSIDE RECORDS SUMMARY | 2024-12-26 16:15 | XMS_ITS | Encounter Summary ---
Author Organization [employer] Address [address] [facility] 7 [place] [address] Care Team Providers Care Car Cleaning Supervisor Name Role Phone Jaxon Osborne MD Primary Care Provider [phone]- [phone] Reason for Visit * Reason Comments Med Refill Encounter Details Date Type Department Care Team ([facility] st Contact Info) Description 12/15/2024 Refill [facility] CHC MED & PEDS [address] [place], [place] [phone] Jaxon Osborne MD [address] [place] [address] Vitamin D deficiency Social History Tobacco Use Types Packs/Day Years [...] Description 01/10/2025 3:30 PM EDT Office Visit [facility] MED & PEDS [address] [place] [address] Jaxon Osborne MD [address] [place] [address] documented as of this encounter Visit Diagnoses Diagnosis Vitamin D deficiency documented in this encounter Additional Health Concerns Assessment Noted Time PHQ-9 Depression Total Score: 0 01/09/20 23 2:46 PM EST documented as of this encounter Care Teams Car Cleaning Supervisor Relationship Specialty Start Date End Date Jaxon Osborne MD [address] [place] [address] PCP - General Internal Medicine 03/07/12 documented as of this encounter
--- OUTSIDE RECORDS SUMMARY | 2024-12-26 16:15 | XMS_ITS | Encounter Summary ---
Author Organization [employer] Address 75 [facility] 7 [place] [address] Care Team Providers Care Filling Layer Up Name Role Phone Jaxon Osborne MD Primary Care Provider [phone]- [phone] Reason for Visit * Reason Comments Med Refill Encounter Details Date Type Department Care Team ([facility] st Contact Info) Description 09/10/2023 Refill [facility] CHC MED & PEDS [address] [place], [place] [phone] Jaxon Osborne MD [address] [place] [address] Social History Tobacco Use Types Packs/Day Years Used Date Smoking Tobacco: Never Passive Smoke Exposure: Never Smokeless Tobacco: Never Alcohol Use Standard Drinks/Week Comments Never 0 (1 standard drink = 0.6 oz pur e alcohol) Depression Answer Date Recorded Patient Health Questionnaire-9 Score 0 01/08/2023 Housing Stability Answer Date Recorded What is your housing situation today? I have mavis rivera 08/17/[address] you li ve. Do you have problems with any of the following? None of the above 08/17/2023 Food Insecurity Answer Date Recorded Within the past 12 months, y ou worried that your food would run out before you got money to buy more: Never True 08/17/2023 Within the past 12 months,th e food you bought just didn't last and you didn't have enough money to get more: Never True Transportation Answer Date Recorded In the past 12 months, has l ack of transportation kept you from medical appts, meetings, work or from getting things needed for daily living? No 08/17/2023 Utilities Answer Date Recorded In the past 12 months, has t he electric, gas, oil or water company threatened to shut off services in your home? No 08/17/2023 Depression Answer Date Recorded Patient Health Questionnaire-2 [...] Description 01/10/2025 3:30 PM EDT Office Visit [facility] MED & PEDS [address] [place] [address] Jaxon Osborne MD [address] [place] [address] documented as of this encounter Visit Diagnoses Not on filedocumented in this encounter Additional Health Concerns Assessment Noted Time PHQ-9 Depression Total Score: 0 01/09/20 23 2:46 PM EST documented as of this encounter Care Teams Filling Layer Up Relationship Specialty Start Date End Date Jaxon Osborne MD [address] [place] [address] PCP - General Internal Medicine 03/07/12 documented as of this encounter
--- OUTSIDE RECORDS SUMMARY | 2024-12-26 16:15 | XMS_ITS | Encounter Summary ---
Author Organization [facility] Address [address] [place] [address] Care Team Providers Care Returned Materials Inspector Name Role Phone Jaxon Osborne MD Primary Care Provider [phone]- [phone] Encounter Details Date Type Department Care Team (Latest Contact Info) Description 04/25/2019 Abstract [facility] CONVERSIONS Dental, Provider, DDS Social History Tobacco [...] Description 01/10/2025 3:30 PM EDT Office Visit [facility] CHC MED & PEDS [address] [place] [address] Jaxon Osborne MD [address] [place] [address] documented as of this encounter Visit Diagnoses Not on filedocumented in this encounter Care Teams Returned Materials Inspector Relationship Specialty Start Date End Date Jaxon Osborne MD [address] [place] [address] PCP - General Internal Medicine 03/07/12 documented as of this encounter
--- OUTSIDE RECORDS SUMMARY | 2024-12-26 16:15 | XMS_ITS | Encounter Summary ---
Author Organization [facility] Address [address] [place] [address] Care Team Providers Care Sap Trainer Name Role Phone Jaxon Osborne MD Primary Care Provider [phone]- [phone] Encounter Details Date Type Department Care Team (Latest Contact Info) Description 10/10/2020 Abstract [facility] CONVERSIONS Dental, Provider, DDS Social History Tobacco [...] Description 01/10/2025 3:30 PM EDT Office Visit [facility] CHC MED & PEDS [address] [place] [address] Jaxon Osborne MD [address] [place] [address] documented as of this encounter Visit Diagnoses Not on filedocumented in this encounter Care Teams Sap Trainer Relationship Specialty Start Date End Date Jaxon Obsorne MD [address] [place] [address] PCP - General Internal Medicine 03/07/12 documented as of this encounter
--- OUTSIDE RECORDS SUMMARY | 2024-12-26 16:16 | XMS_ITS | Encounter Summary ---
Author Organization [employer] Address [address] [place] [address] 7 [place] [address] Care Team Providers Care Corporate Human Resources Manager Name Role Phone Jaxon Osborne MD Primary Care Provider +1- [phone] Reason for Visit * Reason Comments Filling Patients presents to day for fillings Danielle GREY Encounter Details Date Type Department Care Team ([facility] st Contact Info) Description 12/14/2024 2:00 PM EST Office Visit [facility] CHC ADULT DENTAL [address] [place], [place] [phone] Leoncio Oshea, DMD [address] [place] [address] Dental caries (Primary Dx) Social History Tobacco Use Types Packs/Day Years [...] AM EDT documented as of this encounter Last Filed Vital Signs Vital Sign Reading Time Taken Comments Blood Pressure 118/70 12/14/2024 2:12 PM EST Pulse - - Temperature - - Respiratory Rate - - Oxygen Saturation - - Inhaled Oxygen Concentration - - Weight - - Height - - Body Mass Index - - documented in this encounter Progress Notes * Leoncio Oshea DMD - 12/14/2024 2:00 PM EST Patient ID: Woo Munoz is a 59 y.o. male. Time Out: Timeout Date: 12/14/24, Timeout Time: 1431 (RETO # [phone],[id number]) Location: [facility] Tooth: #17 and #18 Procedure: Mandaeism Verified the above with patient, assistant news director, and provider. Confirmed via patient's chart, intraorally and by radiographs. Sample Wrapper: not applicable Chief Complaint Patient presents with Filling Patients presents today for fillings Danielle GREY Medical Hx: Vitals: Blood pressure 118/70. Medications, Med Hx reviewed with patient and updated in chart. Consent Obtained: The risks, benefits, indications, potential complications, and alternatives were explained to the patient and informed consent was obtained with good understanding. Treatment Provided: Dental procedures in this visit D2392 - RESIN-BASED COMPOSITE - 2 SURF, POSTERIOR 18 DO (Completed) Service provider: Leoncio Oshea DMD Billing provider: Leoncio Oshea DMD D2391 - RESIN-BASED COMPOSITE - 1 SURF, POSTERIOR 17 O (Completed) Service provider: Leoncio Oshea DMD Billing provider: Leoncio Oshea DMD [id number] - CASE PRESENTATION, DETAILED AND EXTENSIVE TREATMENT PLANNING (Completed) Service provider: Leoncio Oshea DMD Billing provider: Leoncio Oshea DMD Discussion - pt notes food impaction on #17-O Tooth planned for EXT. No major caries noted, small recurrent decay and lost existing composite presybeterian. No periodontal disease. Tooth erupted completely. Recommend restoring with composite todayand re-evaluating Pt understands that if tooth becomes symptomatic in future, EXT will be advised. Diagnosis: #17- recurrent decay and lost portion of existing presybeterian; #18-DO primary caries into dentin Topical: 20% Benzocaine Anesthesia: 2% Lidocaine (Xylocaine) w/ 1:100,000 epinephrine and 4% Septocaine (Articaine) w/ 1:200,000 epinephrine Number of Cartridges: 1 of each Injection Type: Buccal infiltration and Inferior alveolar nerve block Confirmed profound anesthesia. Isolation: high speed suction, isolating device, and cotton rolls Prep: All caries removed, Existing presybeterian removed, and Preparation finalized Matrix: Tofflemire and wedge Etch: 37% Phosphoric Acid Etch Desensitizer: Gluma Liner/Base: None Paez: I-Paez Mandaeism Material: Voco Grandioso Packable Shade: A3.5 Polished. Occlusion & contacts verified. Patient satisfied with comfort and esthetics. Patient tolerated procedure well. Post-operative instructions were given. Patient departed alert, oriented, and in stable condition. NV: #19-OB (may extend to distal) Area Forester: Danielle Arrington Dentist: Leoncio Oshea DMD documented in this encounter Plan of Treatment Upcoming Encounters Date Type Department Care Team (Late st Contact Info) Description 01/10/2025 3:30 PM EDT Office Visit [facility] MED & PEDS [address] [place] [address] Jaxon Osborne MD [address] [place] [address] documented as of this encounter Procedures Procedure Name Priority Date/Time Associated Diagnosis Comments 18 DO RESIN-BASED COMPOSITE - 2 SURF, POSTERIOR Routine 12/14/2024 2:00 PM EST Dental caries 17 O RESIN-BASED COMPOSITE - 1 SURF, POSTERIOR Routine 12/14/2024 2:00 PM EST Dental caries CASE PRESENTATION, DETAILED AND EXTENSIVE TREATMENT PLANNING Routine 12/14/2024 2:00 PM EST Dental caries documented in this encounter Visit Diagnoses Diagnosis Dental caries- Primary Unspecified dental caries documented in this encounter Additional Health Concerns Assessment Noted Time PHQ-9 Depression Total Score: 0 01/09/20 23 2:46 PM EST documented as of this encounter Care Teams Corporate Human Resources Manager Relationship Specialty Start Date End Date Jaxon Osborne MD [address] [place] [address] PCP - General Internal Medicine 03/07/12 documented as of this encounter
--- OUTSIDE RECORDS SUMMARY | 2024-12-26 16:16 | XMS_ITS | Encounter Summary ---
Author Organization [facility] Address [address] [place] [address] Care Team Providers Care Physical Therapist Assistant Name Role Phone Jaxon Osborne MD Primary Care Provider [phone]- [phone] Reason for Visit * Reason Comments Med Refill Encounter Details Date Type Department Care Team (Late st Contact Info) Description 06/23/2023 Refill [facility] MED & PEDS [address] [place] [address] Jaxon Osborne MD [address] [place] [address] Social History Tobacco Use Types Packs/Day Years Used Date Smoking Tobacco: Never Passive Smoke Exposure: Never Smokeless Tobacco: Never Alcohol Use Standard Drinks/Week Comments Never 0 (1 standard drink = 0.6 oz pur e alcohol) Depression Answer Date Recorded Patient Health Questionnaire-9 Score 0 01/08/2023 Depression Answer Date Recorded Patient Health Questionnaire-2 [...] Description 01/10/2025 3:30 PM EDT Office Visit [facility] MED & PEDS [address] [place] [address] Jaxon Osborne MD [address] [place] [address] documented as of this encounter Visit Diagnoses Not on filedocumented in this encounter Additional Health Concerns Assessment Noted Time PHQ-9 Depression Total Score: 0 01/09/20 23 2:46 PM EST documented as of this encounter Care Teams Physical Therapist Assistant Relationship Specialty Start Date End Date Jaxon Osborne MD [address] [place] [address] PCP - General Internal Medicine 03/07/12 documented as of this encounter
== END 2024-12-26 14:33 | disposition home or self-care (01) ==
PROVIDERS: PCP Internal Medicine; Visit Provider Nurse Practitioner Family
DX: Z01.818 Encounter for other preprocedural examination (principal); Z12.11 Encounter for screening for malignant neoplasm of colon
CPT/HCPCS: 99024

== ENCOUNTER → 2024-12-26 13:15 | Outpatient (BNVA) | payer MEDICARE, MEDICAID, SELFPAY | PROVIDERS: PCP Internal Medicine; Visit Provider Nurse Practitioner Family | DX: Z01.818 Encounter for other preprocedural examination (principal); I10 Essential (primary) hypertension; Z85.46 Personal history of malignant neoplasm of prostate | CPT/HCPCS: 99212 ==

== ENCOUNTER 2025-02-13 13:13 | Outpatient (REF) | payer MEDICARE, MEDICAID, SELFPAY ==
[2025-02-13 14:43] LABS: Prostate Specific Antigen 0.91 ng/mL (<0.05-4.0)
--- OUTSIDE RECORDS SUMMARY | 2025-02-13 16:10 | XMS_ITS | Encounter Summary ---
Author Organization [employer] Address [address] [place] [address] Care Team Providers Care Associate Professor Of Surgery Name Role Phone Jaxon Osborne MD Primary Care Provider +1- [phone] Reason for Visit * Reason Comments Med Refill Encounter Details Date Type Department Care Team (Late st Contact Info) Description 06/23/2023 Refill [facility] MED & PEDS [address] [place] [address] Jaxon Osborne MD [address] [place] [address] Social History Tobacco Use Types Packs/Day Years [...] Care Team (Late st Contact Info) Description 02/23/2025 10:00 AM EDT Office Visit [facility] ADULT DENTAL [address] [place] [address] Leoncio Oshea DMD [address] [place], [place] [phone] documented as of this encounter Visit Diagnoses Not on filedocumented in this encounter Additional Health Concerns Assessment Noted Time PHQ-9 Depression Total Score: 0 01/09/20 23 2:46 PM EST documented as of this encounter Care Teams Associate Professor Of Surgery Relationship Specialty Start Date End Date Jaxon Osborne MD [address] [place] [address] PCP - General Internal Medicine 03/07/12 documented as of this encounter
--- OUTSIDE RECORDS SUMMARY | 2025-02-13 16:10 | XMS_ITS | Encounter Summary ---
Author Organization [employer] Address [address] [facility] 7t [place] [address] Care Team Providers Care Wafer Mounter Name Role Phone Jaxon Osborne MD Primary Care Provider +1- [phone] Reason for Visit * Reason Onset Date Comments appt 01/02/2025 Encounter Details Date Type Department Care Team ([facility] st Contact Info) Description 01/02/2025 Telephone [facility] ADULT DENTAL [address] [place], [place] [phone] Leoncio Oshea, DMD [address] [place], [place] [phone] appt Social History Tobacco Use Types Packs/Day Years [...] AM EDT documented as of this encounter Miscellaneous Notes * Telephone Encounter - Obdulia Elena - 01/02/2025 1:50 PM EST Patient is calling to try to schedule appt that he is tx planned for. Patient has been informed he will get a call from office to schedule. Patient will be calling on and off to see iff schedule has opened as he is concerned of tooth that is becoming symptomatic. Patient would like to receive all to schedule in the meantime otherwise he will call in to check for openings DR documented in this encounter Plan of Treatment Upcoming Encounters Date Type Department Care Team (Late st Contact Info) Description 02/23/2025 10:00 AM EDT Office Visit [facility] CHC ADULT DENTAL [address] [place] [address] Leoncio Oshea, NICOLE [address] [place] [address] documented as of this encounter Visit Diagnoses Not on filedocumented in this encounter Additional Health Concerns Assessment Noted Time PHQ-9 Depression Total Score: 0 01/09/20 23 2:46 PM EST documented as of this encounter Care Teams Wafer Mounter Relationship Specialty Start Date End Date Jaxon Osborne MD [address] [place] [address] PCP - General Internal Medicine 03/07/12 documented as of this encounter
--- OUTSIDE RECORDS SUMMARY | 2025-02-13 16:10 | XMS_ITS | Encounter Summary ---
Author Organization [employer] Address [address] [facility] 7 [place] [address] Care Team Providers Care Buzzle Buffer Name Role Phone Jaxon Osborne MD Primary Care Provider +1- [phone] Reason for Visit * Reason Comments Med Refill Encounter Details Date Type Department Care Team ([facility] st Contact Info) Description 09/10/2023 Refill [facility] CHC MED & PEDS [address] [place], [place] [phone] Jaxon Osborne MD [address] [place] [address] Social History Tobacco Use Types Packs/Day Years [...] [facility] ADULT DENT[facility] [address] [place] [address] Leoncio Oshea, NICOLE [address] [place] [address] documented as of this encounter Visit Diagnoses Not on filedocumented in this encounter Additional Health Concerns Assessment Noted Time PHQ-9 Depression Total Score: 0 01/09/20 23 2:46 PM EST documented as of this encounter Care Teams Buzzle Buffer Relationship Specialty Start Date End Date Jaxon Osborne MD [address] [place] [address] PCP - General Internal Medicine 03/07/12 documented as of this encounter
--- OUTSIDE RECORDS SUMMARY | 2025-02-13 16:10 | XMS_ITS | Encounter Summary ---
Author Organization [employer] Address [address] [place] [address] Care Team Providers Care Chief Green Officer Name Role Phone Jaxon Osborne MD Primary Care Provider [phone]- [phone] Encounter Details Date Type Department Care Team (Latest Contact Info) Description 04/25/2019 Abstract [facility] CONVERSIONS Dental, Provider, DDS Social History [...] 10:00 AM EDT Office Visit [facility] CHC ADULT DENTAL [address] [place] [address] Leoncio Oshea, DMD [address] [place] [address] documented as of this encounter Visit Diagnoses Not on filedocumented in this encounter Care Teams Chief Green Officer Relationship Specialty Start Date End Date Jaxon Osborne MD [address] [place] [address] PCP - General Internal Medicine 03/07/12 documented as of this encounter
--- OUTSIDE RECORDS SUMMARY | 2025-02-13 16:10 | XMS_ITS | Encounter Summary ---
Author Organization [employer] Address [address] [place] [address] Care Team Providers Care Monument Erector Name Role Phone Jaxon Osborne MD Primary Care Provider [phone]- [phone] Encounter Details Date Type Department Care Team (Latest Contact Info) Description 10/10/2020 Abstract [facility] CONVERSIONS Dental, Provider, DDS Social History [...] Description 02/23/2025 10:00 AM EDT Office Visit [facility] CHC ADULT DENTAL [address] [place] [address] Leoncio Oshea, DMD [address] [place] [address] documented as of this encounter Visit Diagnoses Not on filedocumented in this encounter Care Teams Monument Erector Relationship Specialty Start Date End Date Jaxon Osborne MD [address] [place] [address] PCP - General Internal Medicine 03/07/12 documented as of this encounter
--- OUTSIDE RECORDS SUMMARY | 2025-02-13 16:10 | XMS_ITS | Clinical Summary ---
Author Organization [employer] Address [address] [place] [address] 7 [place] [address] Care Team Providers Care Bonding And Composite Fabricator Name Role Phone Jaxon Osborne MD Primary Care Provider [phone] Allergies No known active allergies Medications loratadine (Claritin) 10 MG tablet Take 1 tablet by mouth at bed time. 2 Active albuterol 108 (90 Base) MCG/ACT inhalerIndication s:Asthma, unspecified asthma severity, unspecified whether complicated, unspecified whether persistent Inhale 2 puffs every 4 (four) hours if needed for wheezing. 18 g 5 3 Active amoxicillin (Amoxil) 500 MG capsule Take 2 gm (4 tablets) 1 hour before dental appt. 12 capsule 3 Active amoxicillin (Amoxil) 500 MG tablet Take 2 mg (4 tablets) 1 hour before dental appt. 12 tablet 3 Active meloxicam (Mobic) 15 MG tablet 3 Active fluticasone (Flonase) 50 MCG/ACT nasal spray SHAKE LIQUID AND USE 1 TO 2 SPRAYS IN EACH NOSTRIL EVERY DAY NEEDED 16 g 1 3 Active amoxicillin (Amoxil) 500 MG capsule Take 4 tabs (2 grams) 1 hour prior to dental procedure 4 capsule 3 4 Active amLODIPine (Norvasc) 5 MG tabletIndications :Essential hypertension Take 1 tablet (5 mg) by mouth Once per day. 90 tablet 3 4 Active cholecalciferol (Vitamin D3) 25 MCG (1000 UT) tabletIndications :Vitamin D deficiency TAKE 1 TABLET BY MOUTH EVERY MORNING 60 tablet 11 5 Active Active Problems Problem Noted Date Diagnosed Date Essential hypertension 01/05/2023 Chest pain 01/05/2023 Malignant tumor of prostate 02/02/2019 Chronic benign neutropenia 05/11/2017 Thrombocytopenic disorder 05/11/2017 Hyperplasia of prostate 05/06/2015 Generalized osteoarthritis 05/06/2010 Encounters Date Type Department Care Team Description 02/13/2025 Orders Only GENERIC EXTERNAL DATA DEPARTMENT Provider, Generic External Data 01/31/2025 10:00 AM EDT Office Visit [facility] ADULT DENTAL [address] [place] [address] Leoncio Oshea DMD Dental caries (Primary Dx) 01/30/2025 Telephone [facility] MEDICINE [address] [place] [address] Jaxon Osborne MD FYI 01/10/2025 3:30 PM EDT Office Visit [facility] MED & PEDS [address] [place] [address] Jaxon Osborne MD Essential hypertension (Primary Dx); Malignant tumor of prostate ([facility]/HCC) 01/10/2025 Travel 01/03/2025 Patient Outreach [facility]ED[facility] [address] [place] [address] Jaxon Osborne MD Pre-visit Planning ([facility] unable to reach [facility] ) 01/02/2025 Telephone [facility] ADULT DENTAL [address] [place] [address] Leoncio Oshea DMD appt 12/15/2024 Refill [facility] [address] [place] [address] Jaxon Osborne MD Vitamin D deficiency 12/14/2024 2:00 PM EST Office Visit [facility] ADULT DENTAL [address] [place] [address] Leoncio Oshea DMD Dental caries (Primary Dx) 11/28/2024 Telephone [facility] MED & PEDS [address] [place] [address] Jaxon Osborne MD from Last 3 Months Immunizations Name Administration [...] Date Recorded Patient Health Questionnaire-9 Score 0 01/10/2025 Patient Health Questionnaire-9 Score 0 01/10/2025 Last PHQ-9: Questionnaire Data Not on file 0 01/10/2025 Housing Stability Answer Date Recorded What is [...] Date Recorded Patient Health Questionnaire-2 Score 0 01/10/2025 Sex and Gender Information Value Date Recorded Sex Assigned at Male 08/31/2022 10:22 AM EDT Legal Sex Male 10:22 AM EDT Gender Identity Male 08/31/2022 10:22 AM EDT Sexual Orientation Straight 08/31/2022 10 :22 AM EDT Last Filed Vital Signs Vital Sign Reading Time Taken Comments Blood Pressure 122/68 01/31/2025 10:07 AM EDT Pulse 62 01/10/2025 3:37 PM EDT Temperature 36.6 ??C (97.9 ??F) 01/10/2025 3:37 PM ED T Respiratory Rate 20 01/10/2025 3:37 PM EDT Oxygen Saturation 100% 01/10/2025 3:37 PM EDT Inhaled Oxygen Concentration - - Weight 102 kg (224 lb) 01/10/2025 3:37 PM EDT Height 185.4 cm (6' 1 ) 01/10/2025 3:37 PM EDT Body Mass Index 29.55 01/10/2025 3:37 PM EDT Plan of Treatment Upcoming Encounters Date Type Department Care Team (Late st Contact Info) Description 02/23/2025 10:00 AM EDT Office Visit [facility] ADULT DENTAL [address] [place] [address] Leoncio Oshea, DMD [address] [place] [address] Health Maintenance Due Date Last Done Comments CT Colonography 1964 Colonoscopy 1964 Colorectal Cancer Screening 1964 FIT DNA/Cologuard 1964 FIT 1964 FOBT 1964 Sigmoidoscopy 1964 Hepatitis A Vaccines (1 of 2 - Risk 2-dose series) 1983 Zoster Vaccines (1 of 2) 1983 RSV Patients and Patients Aged 60 years [...] 03/27/2021, 03/05/2021 Postponed from 04/24/2021 (Patient Refused) Alcohol/Substance Use Screening 01/10/2026 01/10/2025 Depression Screening 01/10/2026 01/10/2025, 01/11/20 25 Tobacco Screening 01/31/2026 01/31/2025 Dental X-Ray: Full Mouth 02/10/2027 02/10/2024, 08/01 [...] Procedure Name Priority Date/Time Associated Diagnosis Comments PSA, TOTAL Routine 02/13/2025 1:24 PM EDT CASE PRESENTATION, DETAILED AND EXTENSIVE TREATMENT PLANNING Routine 01/31/2025 10:00 AM EDT Dental caries 19 KALEB RESIN-BASED COMPOSITE - 2 SURF, POSTERIOR Routine 01/31/2025 10:00 AM EDT Dental caries CASE PRESENTATION, DETAILED AND EXTENSIVE TREATMENT PLANNING Routine 12/14/2024 2:00 PM EST Dental caries 17 O RESIN-BASED COMPOSITE - 1 SURF, POSTERIOR Routine 12/14/2024 2:00 PM EST Dental caries 18 DO RESIN-BASED COMPOSITE - 2 SURF, POSTERIOR Routine 12/14/2024 2:00 PM EST Dental caries PROPHYLAXIS - ADULT Routine 10/18/2024 2 :00 PM EST HEPATITIS C AB W/REFL TO HCV RNA, QN, PCR Routine 10/06/2024 3:56 PM EST Essential hypertension Encounter for immunization Screen for STD (sexually transmitted disease) HIV 1/2 ANTIGEN/ANTIBODY, FOURTH GENERATION W/RFL Routine 10/06/2024 3:56 PM EST Essential hypertension Encounter for immunization Screening for HIV (human immunodeficiency virus) Screen for STD (sexually transmitted disease) STD (male) LIPID PANEL, STANDARD Routine 10/06/2024 3:56 PM [...] Recently Relevant to Health Maintenance Results * PSA,Total (02/13/2025 1:24 PM EDT) Prostate Specific Antigen 0.91 <0.05 - 4.0 ng/mL [facility] Comment:PSA methodology: Abb nguyễn Alimelaniety i ChemiluminescentMicroparticle Immunoassay (CMIA) 02/13/2025 1:24 PM EDT 02/13/2025 1:25 PM EDT us Generic External Data Provider LAB BLOOD ORDERAB LES Final Result [facility] [address] [place] [phone] * Hepatitis C Antibody with Reflex to HCV, RNA, Quantitative, Real-Time PCR (10/06/2024 3:56 PM EST) Hepatitis C Antibody Nonreactive Nonreactive [facility] Comment:Antibodies to HCV no t detected; does not exclude early acuteHCV infection. Blood Venous blood specimen / Unknown 10/06/2024 3:56 PM EST 10/06/2024 5:39 PM EST us Jaxon Osborne MD LAB BLOOD ORDERABLES Final Result Performing Organization Address [facility] Co de Phone Number [facility] [address] [place] [address] [phone] * HIV-1/2 Antigen and Antibodies, Fourth Generation, with Reflexes (10/06/2024 3:56 PM EST) HIV AB/AG Nonreactive Nonreactive [facility] Comment:HIV-1 p24 Ag and/or HIV-1/HIV-2 Ab not detected.A test result that is nonreactive does not exclude thepossibility of exposure to or infection with HIV-1 and/orHIV-2. Nonreactive results in this assay for individualswith prior exposure to HIV-1 and/or HIV-2 may be due toantigen and antibody levels that are below the limit ofdetection of this assay.The Medivo HIV Ag/Ab Combo assay result andsupplemental assay results should be interpreted inconjunction with the patient's clinical presentation,history and other laboratory results. If the results areinconsistent with clinical evidence, additional testing issuggested to confirm the result. Blood Venous blood specimen / Unknown 10/06/2024 3:56 PM EST 10/06/2024 5:39 PM EST us Jaxon Osborne MD LAB BLOOD ORDERABLES Final Result Performing Organization Address [facility]/ZIP Co de Phone Number [facility] [address] [place] [address] [phone] * Lipid Panel, Standard (10/06/2024 3:56 PM EST) Triglycerides 52 <150 mg/dL [facility] Comment:Desirable Triglyceri de: less than 150 mg/dLBorderline High Triglyceride 150-199 mg/dLHigh Triglyceride: 200-499 mg/dLVery High Triglyceride: greater than or equal to 5OO mg/dL Cholesterol 170 <200 mg/dL [facility] Comment:Desirable Cholestero l: less than 200 mg/dLBorderline High Cholesterol: 200-239 mg/dLHigh Cholesterol: greater than 239 mg/dL LDL Cholesterol Calculated 86 <100 mg/dL [facility] Comment:Desirable LDL: less than 100 mg/dLNear Optimal/Above Optimal LDL: 110- 129 mg/dLBorderline High LDL: 130-159 mg/dLHigh LDL: 160-189 mg/dLVery High LDL: greater than or equal to 190 mg/dL HDL Cholesterol 74 >40 mg/dL [facility] Comment:Desirable HDL: great er than 40 mg/dL Note: This HDL assay may give artificially low results in patients with liver disease. Blood Venous blood specimen / Unknown 10/06/2024 3:56 PM EST 10/06/2024 5:39 PM EST Jaxon Osborne MD LAB BLOOD ORDERABLES Final Result [facility] [address] [place] [phone] from Last 3 Months or Most Recently Relevant to Health Maintenance Insurance MEDICARE [facility] MEDICAID STAND ADULT Care Teams Bonding And Composite Fabricator Relationship Specialty Start Date End Date Jaxon Osborne MD [address] [place] [phone] PCP - General Internal Medicine 03/07/12
--- OUTSIDE RECORDS SUMMARY | 2025-02-13 16:10 | XMS_ITS | Encounter Summary ---
Author Organization [employer] Address [address] [facility] 7t [place] [address] Care Team Providers Care Legal Aid Name Role Phone Jaxon Osborne MD Primary Care Provider [phone] Encounter Details Date Type Department Care Team (Late st Contact Info) Description 02/13/2025 Orders Only GENERIC EXTERNAL DATA DEPARTMENT Provider, Generic External Data Social History Tobacco Use Types Packs/Day Years [...] Description 02/23/2025 10:00 AM EDT Office Visit [facility] ADULT DENTAL [address] [place] [address] Leoncio Oshea, DMD [address] [place], [place] [phone] documented as of this encounter Procedures Procedure Name Priority Date/Time Associated Diagnosis Comments PSA, TOTAL Routine 02/13/2025 1:24 PM EDT documented in this encounter Results * PSA,Total (02/13/2025 1:24 PM EDT) Prostate Specific Antigen 0.91 <0.05 - 4.0 ng/mL [facility] Comment:PSA methodology: Chelo Poon i ChemiluminescentMicroparticle Immunoassay (CMIA) 02/13/2025 1:24 PM EDT 02/13/2025 1:25 PM EDT us Generic External Data Provider LAB BLOOD ORDERAB LES Final Result [facility] [address] [place] [phone] [phone] documented in this encounter Visit Diagnoses Not on filedocumented in this encounter Additional Health Concerns Assessment Noted Time PHQ-9 Depression Total Score: 0 01/11/20 25 3:41 PM EDT documented as of this encounter Care Teams Legal Aid Relationship Specialty Start Date End Date Jaxon Osborne MD [address] [place] [address] PCP - General Internal Medicine 03/07/12 documented as of this encounter
--- OUTSIDE RECORDS SUMMARY | 2025-02-13 16:10 | XMS_ITS | Clinical Summary ---
Author Organization [address] [facility] Address [address] [place] [address] Phone Care Team Providers Care Boiler Welder Name Role Phone Jaxon Osborne MD Primary Care Provider [phone] Allergies No known active allergies Medications meloxicam [...] right hip 04/17 Malignant tumor of prostate ([facility] V24, [facility]/ C V28) 02/02/2019 Chronic benign neutropenia ([facility] V24) 017 Thrombocytopenic disorder ([facility] V24) 05/11/20 17 Hyperplasia of prostate 05/06/2015 Encounters Date Type Department Care Team Description 11/23/2024 1:45 PM EST Office Visit Orthopedic Surgery - [address] [address] Javier Briggs, DPM Dermatophytosis of nail (Primary Dx); Ingrowing nail; Acquired hammer toe of right foot; Hammer toe of left foot; Verruca plantaris from Last 3 Months Surgical History Surgery Date Site/Laterality Comments OTHER SURGICAL HISTORY Bilateral PROCEDURE: NC ARTHRP ACETBLR/PROX FEM PROSTC AGRFT/ALGRFT; COMMENT: Right [...] Upcoming Encounters Date Type Department Care Team ([facility] st Contact Info) Description 02/22/2025 1:15 PM EDT Office Visit Orthopedic Surgery - [place] [address] [phone] Javier Briggs, DPBrandi [address] [address] Health Maintenance Due Date Last Done Comments Zoster Vaccines (1 of 2) 1983 COVID-19 Vaccine (3 - Pfizer risk series) 04/24/2021 03/27/2021, 03/05/2021 Colorectal Cancer Screening: Colonoscopy 10/04/2022 Medicare Annual Wellness Visit 10/04/2022 Social Influencers of Health Screening 10/04/2022 Hypertension/CHF/CAD Annual BMP Blood Test 01/07/2024 01/06/2023 Depression Screening 01/09/2024 01/08/2023 RSV Immunization Adult Patients (1 - Risk 60-74 years 1-dose series) [...] age to complete this topic Meningococcal B Vaccine Aged Out No l onger eligible based on patient's age to complete [...] * Annual BMP Blood Test (01/06/2023) Pathologist [facility] Annual BMP Blood Test abstracted Historical Provider HEALTH MAINTENANCE Final Result * Lipid panel (08/28/2021) Triglycerides 0 0 - 0 mg/dL Comment:no [...] Insurance MEDICARE MEDICAID - [place] Care Teams Boiler Welder Relationship Specialty Start Date End Date Jaxon Osborne MD [address] [place] [address] PCP - General Internal Medicine 06/24/22
--- OUTSIDE RECORDS SUMMARY | 2025-02-13 16:10 | XMS_ITS | Encounter Summary ---
Author Organization [employer] Address [address] [place] [address] Care Team Providers Care Toll Mechanic Name Role Phone Jaxon Osborne MD Primary Care Provider [phone]- [phone] Encounter Details Date Type Department Care Team (Latest Contact Info) Description 06/08/2022 Abstract [facility] CONVERSIONS Dental, Provider, DDS Social History [...] Description 02/23/2025 10:00 AM EDT Office Visit [facility] CHC ADULT DENTAL [address] [place] [address] Leoncio Oshea, DMD [address] [place] [address] documented as of this encounter Visit Diagnoses Not on filedocumented in this encounter Care Teams Toll Mechanic Relationship Specialty Start Date End Date Jaxon Osborne MD [address] [place] [address] PCP - General Internal Medicine 03/07/12 documented as of this encounter
--- OUTSIDE RECORDS SUMMARY | 2025-02-13 16:10 | XMS_ITS | Encounter Summary ---
Author Organization [employer] Address [address] [facility] 7t [place] [address] Care Team Providers Care Balance Assembler Name Role Phone Jaxon Osborne MD Primary Care Provider [phone] Reason for Visit * Reason Onset Date Comments FYI 01/30/2025 Encounter Details Date Type Department Care Team ([facility] st Contact Info) Description 01/30/2025 Telephone [facility] MED[facility] [address] [place] [address] Jaxon Osborne MD [address] [place] [address] FYI Social History Tobacco Use Types Packs/Day Years [...] encounter Miscellaneous Notes * Telephone Encounter - Matt Brock - 01/30/2025 10:05 AM EDT Tc from pt informing he missed a call from the office as no notes on behalf call , if anyone placedthe call please return call to pt. [phone] documented in this encounter Plan of Treatment Upcoming Encounters Date Type Department Care Team (Late st Contact Info) Description 02/23/2025 10:00 AM EDT Office Visit [facility] CH[facility] ADULT DENTAL [address] [place] [address] Leoncio Oshea, NICOLE [address] [place] [address] documented as of this encounter Visit Diagnoses Not on filedocumented in this encounter Additional Health Concerns Assessment Noted Time PHQ-9 Depression Total Score: 0 01/11/20 25 3:41 PM EDT documented as of this encounter Care Teams Balance Assembler Relationship Specialty Start Date End Date Jaxon Osborne MD [address] [place] [address] PCP - General Internal Medicine 03/07/12 documented as of this encounter
[2025-02-16 15:43] LABS: Testosterone, Total 8 ng/dL (250-1100)
== END 2025-02-13 13:14 | disposition home or self-care (01) ==
LOC: HO.LAB 13:13
PROVIDERS: PCP Internal Medicine; Visit Provider Urology
DX: C61 Malignant neoplasm of prostate (principal); Z12.5 Encounter for screening for malignant neoplasm of prostate
CPT/HCPCS: 36415; 84153; 84403

== ENCOUNTER 2025-03-16 08:32 | Outpatient (AMB) | payer MEDICARE, MEDICAID, SELFPAY ==
--- NOTE | 2025-03-16 08:34 | A.OFFVIS_ITS ---
Intake Visit Reasons: 4m/labs Intake Note: Patient is present for 4M/LABS Urology Medication:NONE Antibiotic Allergy:NONE Blood Thinner:NONE [employer] Solutions Architect Required: No Allergies No Known Allergies Allergy (Verified 03/16/25 08:35) HPI Comments Details: Alin is a pleasant male. He is a patient of . He seen for the following urologic conditions - prostate cancer Telemedicine Evaluation 15 min Consultation [facility] Four month lab work shows continued suppression of testosterone Does have impact on quality of erections Reassurance provided that short will resolve Had been seen at [facility] Urology with active surveillance At some point treatment options had been encouraged. He was scheduled for external beam radiation with short-term hormone management - GNRH given in September 24 Based upon a review of his notes it appears that he has low volume, grade group 1 prostate cancer. Would recommend continue surveillance. Given GnRH administered August repeat lab work in January. Prostate cancer - Grade Group grade group 1 NCCN 08/19, 04/24 Adenocarcinoma of the prostate - NCCN low risk group - PSA at diagnosis 4.0 Diagnosis was reached by - needle biopsy Biopsy Date: 04/24 Histologic grade: Doug score: 3+3 Positive Biopsies: 2 Negative Biopsies: 10 (%) Positive: Low/1200 Associated Features: Negative TNM Classification of Malignant Tumours (TNM) - T1c Staging Imaging - PET-CT negative Attempt at Prolaris testing made. Insufficient tumor for analysis. Therapeutic plan: Repeat lab work in July. Continue active surveillance [facility] Medical History Prostate cancer OA (osteoarthritis) BPH (benign prostatic hyperplasia) Elevated PSA Surgical History History of left hip replacement History of right hip replacement History of orthopedic surgery Family History Mother No problems noted. Father Prostate cancer Social History Alcohol intake: never Patient Tobacco Use Status: Former Tobacco user Review of Systems Const All systems reviewed & are unremarkable except as noted in HPI and below Reports no additional complaints Resp Reports no additional complaints GI Reports no additional complaints Reports as per HPI Musc Reports no additional complaints Physical Exam Telemedicine evaluation Appropriate responses Regular breathing rate and rhythm HEENT Head: Yes normal to inspection Ears: hearing grossly normal bilaterally Eyes General: appearance normal, both eyes and all related structures Neck Neck: Yes normal visual inspection Chest Chest palpation & inspection: normal inspection of the chest Resp Effort & Inspection: normal respiratory effort and able to speak in complete sentences Telehealth Telehealth Location of provider rendering services: practice address Location of patient: address on file Patient Identification confirmed using: Name, : Yes Telehealth method: voice only Patient verbally consented to treatment: Yes Patient verbally consented to billing insurance company: Yes Patient informed of any privacy concerns related to visit: Yes Assessment & Plan Assessment & Plan (1) Prostate cancer: Comment: Doug 6 on 12/13 Biopsy Sites Code(s): C61 - Malignant neoplasm of prostate Category: Medical Plan Four month follow-up PSA labs Orders: Orders Prostate Specific Antigen 4 Months C61 - Malignant neoplasm of prostate Testosterone, Total 4 Months C61 - Malignant neoplasm of prostate Patient Instructions: This note is constructed using voice recognition software. While every effort has been made to ensure accuracy pig machine supervisor errors may have been included. Imaging studies, laboratory and physical exam results were discussed and reviewed in detail. No major barriers to patient understanding were identified. An opportunity to ask questions regarding the treatment plan was provided. All questions were answered. The patient expressed understanding and agreement with the above treatment plan. The patient is aware they should contact our office by phone for worsening of their current condition or the appearance of new urologic symptoms. Compliance is encouraged with any medications and followup testing that is ordered. It is a privilege to participate in the urologic care of your patient. If you have any questions or concerns regarding treatment for the above conditions, or other urologic issues, please do not hesitate to contact me. The office telephone contact is [phone]. Sincerely, Dr Neri Lau MD, [facility] - Urology Compassionate Specialist Care for the Genitourinary System Coding Level of Care Code Tele Est Pt Level 3 (29625) Complex EM visit Add On G2211 Diagnoses Prostate cancer C61
--- OUTSIDE RECORDS SUMMARY | 2025-03-16 08:45 | XMS_ITS | Encounter Summary ---
Author Organization [employer] [facility] Address [address] [place] [address] Care Team Providers Care Business Reporting Developer Name Role Phone Jaxon Osborne MD Primary Care Provider [phone]- [phone] Encounter Details Date Type Department Care Team (Latest Contact Info) Description 06/08/2022 Abstract [facility] CONVERSIONS Dental, Provider, DDS Social History [...] Care Team (Late st Contact Info) Description 03/16/2025 2:00 PM EDT Office Visit [facility] ADULT D[facility] [address] [place] [address] Leoncio Oshea DMD [address] [place] [address] 04/20/2025 1:00 PM EDT Office Visit [facility] ADULT D[facility] [address] [place] [address] Carly Mari documented as of this encounter Visit Diagnoses Not on filedocumented in this encounter Care Teams Business Reporting Developer Relationship Specialty Start Date End Date Jaxon Osborne MD [address] [place] [address] PCP - General Internal Medicine 03/07/12 documented as of this encounter
--- OUTSIDE RECORDS SUMMARY | 2025-03-16 08:45 | XMS_ITS | Encounter Summary ---
Author Organization [employer] Address [address] [facility] 7 [place] [address] Care Team Providers Care Compliance Aide Name Role Phone Jaxon Osborne MD Primary Care Provider +1- [phone] Reason for Visit * Reason Comments Med Refill Encounter Details Date Type Department Care Team ([facility] st Contact Info) Description 09/10/2023 Refill [facility]ED[facility] [address] [place], [place] [phone] Jaxon Osborne MD [address] [place] [address] Social History Tobacco Use Types Packs/Day Years [...] 2:00 PM EDT Office Visit [facility] ADULT DENTAL [address] [place] [address] Leoncio Oshea DMD 505 [place] [address] 04/20/2025 1:00 PM EDT Office Visit [facility] ADULT DENTAL [address] [place] [address] Carly Mari documented as of this encounter Visit Diagnoses Not on filedocumented in this encounter Additional Health Concerns Assessment Noted Time PHQ-9 Depression Total Score: 0 01/09/20 23 2:46 PM EST documented as of this encounter Care Teams Compliance Aide Relationship Specialty Start Date End Date Jaxon Osborne MD [address] [place] [address] PCP - General Internal Medicine 03/07/12 documented as of this encounter
--- OUTSIDE RECORDS SUMMARY | 2025-03-16 08:45 | XMS_ITS | Clinical Summary ---
Author Organization [employer] Address [address] [place] [address] 7 [place] [address] Care Team Providers Care Correctional Case Manager Name Role Phone Jaxon Osborne MD Primary Care Provider [phone] Allergies No known active allergies Medications loratadine (Claritin) 10 MG tablet Take 1 tablet by mouth at bed time. 02/25/20 22 Active amoxicillin (Amoxil) 500 MG capsule Take [...] 04/17/20 24 Active amLODIPine (Norvasc) 5 MG tabletIndicatio ns:Essential hypertension Take 1 tablet (5 mg) by mouth Once per day. 90 tablet 3 10/06/20 24 Active cholecalciferol (Vitamin D3) 25 MCG (1000 UT) tabletIndicatio ns:Vitamin D deficiency TAKE 1 TABLET BY MOUTH EVERY MORNING 60 tablet 11 12/19/19 25 Active albuterol 108 (90 Base) MCG/ACT inhalerIndicati ons:Asthma, unspecified asthma severity, unspecified whether complicated, unspecified whether persistent INHALE 2 PUFFS BY MOUTH EVERY 4 HOURS NEEDED FOR WHEEZING 18 g 5 02/28/20 25 Active albuterol 108 (90 Base) MCG/ACT inhalerIndicati ons:Asthma, unspecified asthma severity, unspecified whether complicated, unspecified whether persistent Inhale 2 puffs every 4 (four) hours if needed for wheezing. 18 g 5 01/06/20 23 025 Discontinued(Re order (will not trigger notification to Pharmacy)) Active Problems Problem Noted Date Diagnosed Date Essential hypertension 01/05/2023 Chest pain 01/05/2023 Malignant tumor of prostate 02/02/2019 Chronic benign neutropenia 05/11/2017 Thrombocytopenic disorder 05/11/2017 Hyperplasia of prostate 05/06/2015 Generalized osteoarthritis 05/06/2010 Encounters Date Type Department Care Team Description 03/01/2025 11:00 AM EDT Office Visit [facility] ADULT DENTAL [address] [place] [address] Sandra Antoniolola 02/27/2025 Refill [facility] [address] [place] [address] Jaxon Osborne MD Asthma, unspecified asthma severity, unspecified whether complicated, unspecified whether persistent 02/26/2025 Refill [facility] [address] [place] [address] Jaxon Osborne MD Asthma, unspecified asthma severity, unspecified whether complicated, unspecified whether persistent 02/23/2025 10:00 AM EDT Office Visit [facility] ADULT [facility] [address] [place] [address] Leoncio Oshea DMD Dental caries (Primary Dx) 02/23/2025 Telephone [facility] [address] [place] [address] Jaxon Osborne MD 02/13/2025 Orders Only GENERIC EXTERNAL DATA DEPARTMENT Provider, Generic External Data 01/31/2025 10:00 AM EDT Office Visit [facility] ADULT D[facility] [address] [place] [address] Leoncio Oshea DMD Dental caries (Primary Dx) 01/30/2025 Telephone [facility] [address] [place] [phone] Jaxon Osborne MD FYI 01/10/2025 3:30 PM EDT Office Visit [facility] [address] [place] [address] Jaxon Osborne MD Essential hypertension (Primary Dx); Malignant tumor of prostate (CMS/HCC) 01/10/2025 Travel 01/03/2025 Patient Outreach [facility] [address] [place] [address] Jaxon Osborne MD Pre-visit Planning ([facility] unable to reach LVM ) 01/02/2025 Telephone [facility] ADULT [facility] [address] [place] [address] Leoncio Oshea, NICOLE appt from Last 3 Months Immunizations Immunization Administration Dates Next Due Hep B, adult [...] your housing situation today? I have mavis sing 03/02/[address] you li [...] Sign Reading Time Taken Comments Blood Pressure 120/78 02/23/2025 10:42 AM EDT Pulse 62 01/10/2025 3:37 PM [...] Description 03/16/2025 2:00 PM EDT Office Visit [facility]ULT [facility] [address] [place] [address] Leoncio Oshea, NICOLE [address] [place] [address] 04/20/2025 1:00 PM EDT Office Visit [facility]ULT [facility] [address] [place] [address] Carly Mari Health Maintenance Due Date Last Done Comments [...] (2 - Td or Tdap) 11/14/2024 11/14/2014 SDOH Screening 03/02/2025 03/02/2024 Dental Prophylaxis 04/19/2025 10/18/2024, 0 04/17/2024, 08/17/2023, Additional history exists COVID-19 Vaccine (3 - Pfizer risk series) 10/06/2025 03/27/2021, 03/05/2021 Postponed from 04/24/2021 (Patient Refused) Alcohol/Substance Use Screening 01/10/2026 01/10/2025 Depression Screening 01/10/2026 01/10/2025, 01/11/20 Tobacco Screening 03/01/2026 03/01/2025 Dental X-Ray: Bitewings 03/02/2026 03/01/20 25, 02/10/2024, 08/17/2023, Additional history exists Dental X-Ray: Full Mouth 02/10/2027 02/10/2024, 08/01 [...] PRESENTATION, DETAILED AND EXTENSIVE TREATMENT PLANNING Routine 03/01/2025 11:00 AM EDT BITEWING - SINGLE RADIOGRAPHIC IMAGE Routine 03/01/2025 11:00 AM EDT INTRAORAL - PERIAPICAL FIRST RADIOGRAPHIC IMAGE Routine 03/01/2025 11:00 AM EDT 30 LIMITED ORAL EVALUATION - PROBLEM FOCUSED Routine 03/01/2025 11:00 AM EDT CASE PRESENTATION, DETAILED AND EXTENSIVE TREATMENT PLANNING Routine 02/23/2025 10:00 AM EDT Dental caries 31 MO RESIN-BASED COMPOSITE - 2 SURF, POSTERIOR Routine 02/23/2025 10:00 AM EDT Dental caries 30 DO RESIN-BASED COMPOSITE - 2 SURF, POSTERIOR Routine 02/23/2025 10:00 AM EDT Dental caries TESTOSTERONE, TOTAL, MALES (ADULT), IA Routine 02/13/2025 1:24 PM EDT PSA, TOTAL Routine 02/13/2025 1:24 PM EDT CASE PRESENTATION, DETAILED AND EXTENSIVE TREATMENT PLANNING Routine 01/31/2025 10:00 AM EDT Dental caries 19 KALEB RESIN-BASED COMPOSITE - 2 SURF, POSTERIOR Routine 01/31/2025 10:00 AM EDT Dental caries PROPHYLAXIS - ADULT Routine 10/18/2024 [...] Recently Relevant to Health Maintenance Results * (ABNORMAL) Testosterone, Total, males (Adult), IA (02/13/2025 1:24 PM EDT) Pathologist [facility] Testosterone, Total 8(A) 250 - 1100 ng/dL [facility] Comment:For additional infor savannah, please refer tohttp://education.Devtoo/faq/[email or web address](This link is being provided for informational/educational purposes only.)This test was developed and its analytical performancecharacteristics have been determined by [employer] [place], [place]. It hasnot been cleared or approved by the U.S. Food and DrugAdministration. This assay has been validated pursuantto the CLIA regulations and is used for clinicalpurposes.THIS TEST WAS PERFORMED AT:[facility] [place] [address]KZPLAAEAKHIL EDDY MD,PHD 02/13/2025 1:24 PM EDT 02/13/2025 1:25 PM EDT us Generic External Data Provider LAB BLOOD ORDERAB LES Final Result [facility] [address] [place] [address] [phone] * PSA,Total (02/13/2025 1:24 PM EDT) [facility] Prostate Specific Antigen 0.91 <0.05 - 4.0 ng/mL [facility] Comment:PSA methodology: Abb nguyễn Poon i ChemiluminescentMicroparticle Immunoassay (CMIA) 02/13/2025 1:24 PM EDT 02/13/2025 1:25 PM EDT us Generic External Data Provider LAB BLOOD ORDERAB LES Final Result Performing Organization Address [facility] Co de Phone Number [facility] [address] [place] [phone] * Hepatitis C Antibody with Reflex to HCV, RNA, Quantitative, Real-Time PCR (10/06/2024 3:56 PM EST) Hepatitis C Antibody Nonreactive Nonreactive [facility] Comment:Antibodies to HCV no t detected; does not exclude early acuteHCV infection. Blood Venous blood specimen / Unknown 10/06/2024 3:56 PM EST 10/06/2024 5:39 PM EST us Jaxon Osborne MD LAB BLOOD ORDERABLES Final Result Performing Organization Address [facility] Co de Phone Number [facility] [address] [place] [phone] * HIV-1/2 Antigen and Antibodies, Fourth Generation, with Reflexes (10/06/2024 3:56 PM EST) HIV AB/AG Nonreactive Nonreactive [facility] Comment:HIV-1 p24 Ag and/or HIV-1/HIV-2 Ab not detected.A test result that is nonreactive does not exclude thepossibility of exposure to or infection with HIV-1 and/orHIV-2. Nonreactive results in this assay for individualswith prior exposure to HIV-1 and/or HIV-2 may be due toantigen and antibody levels that are below the limit ofdetection of this assay.The TrellieniAvitide HIV Ag/Ab Combo assay result andsupplemental assay results should be interpreted inconjunction with the patient's clinical presentation,history and other laboratory results. If the results areinconsistent with clinical evidence, additional testing issuggested to confirm the result. Blood Venous blood specimen / Unknown 10/06/2024 3:56 PM EST 10/06/2024 5:39 PM EST us Jaxon Osborne MD LAB BLOOD ORDERABLES Final Result Performing Organization Address [facility] Co de Phone Number [facility] [address] [place] [phone] [phone] * Lipid Panel, Standard (10/06/2024 3:56 PM EST) Triglycerides 52 <150 mg/dL [facility] Comment:Desirable Triglyceri de: less than 150 mg/dLBorderline High Triglyceride 150-199 mg/dLHigh Triglyceride: 200-499 mg/dLVery High Triglyceride: greater than or equal to 5OO mg/dL Cholesterol 170 <200 mg/dL [facility] Comment:Desirable Cholestero l: less than 200 mg/dLBorderline High Cholesterol: 200-239 mg/dLHigh Cholesterol: greater than 239 mg/dL LDL Cholesterol Calculated 86 <100 mg/dL [facility] Comment:Desirable LDL: less than 100 mg/dLNear Optimal/Above Optimal LDL: 110- 129 mg/dLBorderline High LDL: 130-159 mg/dLHigh LDL: 160-189 mg/dLVery High LDL: greater than or equal to 190 mg/dL HDL Cholesterol 74 >40 mg/dL [facility] Comment:Desirable HDL: great er than 40 mg/dL Note: This HDL assay may give artificially low results in patients with liver disease. Blood Venous blood specimen / Unknown 10/06/2024 3:56 PM EST 10/06/2024 5:39 PM EST us Jaxon Osborne MD LAB BLOOD ORDERABLES Final Result Performing Organization Address [facility]/ZIP Co de Phone Number [facility] [address] [place] [phone] [phone] from Last 3 Months or Most Recently Relevant to Health Maintenance Insurance MEDICARE [facility] STANDARD DENTAL-[facility] MEDICAID STAND ADULT Care Teams Correctional Case Manager Relationship Specialty Start Date End Date Jaxon Osborne MD [address] [place] [address] PCP - General Internal Medicine 03/07/12
--- OUTSIDE RECORDS SUMMARY | 2025-03-16 08:45 | XMS_ITS | Encounter Summary ---
Author Organization [employer] [facility] Address [address] [place] [address] Care Team Providers Care Major Case Detective Name Role Phone Jaxon Osborne MD Primary Care Provider +1- [phone] Encounter Details Date Type Department Care Team (Latest Contact Info) Description 04/25/2019 Abstract [facility] CONVERSIONS Dental, Provider, DDS Social History Tobacco [...] Description 03/16/2025 2:00 PM EDT Office Visit [facility] ADULT DENT[facility] [address] [place] [address] Leoncio Oshea DMD [address] [place] [address] 04/20/2025 1:00 PM EDT Office Visit [facility] ADULT DENT[facility] [address] [place] [address] Carly Mari documented as of this encounter Visit Diagnoses Not on filedocumented in this encounter Care Teams Major Case Detective Relationship Specialty Start Date End Date Jaxon Osborne MD [address] [place] [address] PCP - General Internal Medicine 03/07/12 documented as of this encounter
--- OUTSIDE RECORDS SUMMARY | 2025-03-16 08:46 | XMS_ITS | Encounter Summary ---
Author Organization [email or web address] Address [address] [facility] 7t [place] [address] Care Team Providers Care Pedorthist Name Role Phone Jaxon Osborne MD Primary Care Provider +1- [phone] Reason for Visit * Reason Onset Date Comments appt 01/02/2025 Encounter Details Date Type Department Care Team ([facility] st Contact Info) Description 01/02/2025 Telephone [facility] ADULT DENTAL [address] [place], [place] [phone] Leoncio Oshea, DMD [address] [place], [place] [phone] appt Social History Tobacco Use Types Packs/Day [...] Description 03/16/2025 2:00 PM EDT Office Visit [facility] ADULT DENTAL [address] [place] [address] Leoncio Oshea DMD [address] [place] [address] 04/20/2025 1:00 PM EDT Office Visit [facility] ADULT DENTAL [address] [place] [address] Carly Mari documented as of this encounter Visit Diagnoses Not on filedocumented in this encounter Additional Health Concerns Assessment Noted Time PHQ-9 Depression Total Score: 0 01/09/20 23 2:46 PM EST documented as of this encounter Care Teams Pedorthist Relationship Specialty Start Date End Date Jaxon Osborne MD [address] [place] [address] PCP - General Internal Medicine 03/07/12 documented as of this encounter
--- OUTSIDE RECORDS SUMMARY | 2025-03-16 08:46 | XMS_ITS | Encounter Summary ---
Author Organization [employer] Address [address] [facility] 7t [place] [address] Care Team Providers Care Supervisor Hot Dip Plating Name Role Phone Jaxon Osborne MD Primary Care Provider +1- [phone] Reason for Visit * Reason Onset Date Comments FYI 01/30/2025 Encounter Details Date Type Department Care Team ([facility] st Contact Info) Description 01/30/2025 Telephone [facility] [address] [place] [address] Jaxon Osborne MD [address] [place] [address] FYI Social History Tobacco Use Types Packs/Day [...] placedthe call please return call to pt. [phone] documented in this encounter Plan of Treatment Upcoming Encounters Date Type Department Care Team (Late st Contact Info) Description 03/16/2025 2:00 PM EDT Office Visit [facility] ADULT D[facility]AL [address] [place] [address] Leoncio Oshea DMD [address] [place] [address] 04/20/2025 1:00 PM EDT Office Visit [facility] ADULT DENTAL [address] [place] [address] Carly Mari documented as of this encounter Visit Diagnoses Not on filedocumented in this encounter Additional Health Concerns Assessment Noted Time PHQ-9 Depression Total Score: 0 01/11/20 25 3:41 PM EDT documented as of this encounter Care Teams Supervisor Hot Dip Plating Relationship Specialty Start Date End Date Jaxon Osborne MD [address] [place] [address] PCP - General Internal Medicine 03/07/12 documented as of this encounter
--- OUTSIDE RECORDS SUMMARY | 2025-03-16 08:46 | XMS_ITS | Encounter Summary ---
Author Organization [email or web address] Address [address] [facility] 7 [place] [address] Care Team Providers Care Life Enrichment Manager Name Role Phone Jaxon Osborne MD Primary Care Provider +1- [phone] Reason for Visit * Reason Comments Med Refill Encounter Details Date Type Department Care Team ([facility] st Contact Info) Description 02/27/2025 Refill [facility] MED & PEDS [address] [place], [place] [phone] Jaxon Osborne MD [address] [place] [address] Asthma, unspecified asthma severity, unspecified whether complicated, unspecified whether persistent Social History Tobacco Use Types Packs/Day Years [...] Description 03/16/2025 2:00 PM EDT Office Visit [facility] ADULT DENTAL [address] [place] [address] Leoncio Oshea DMD [address] [place] [address] 04/20/2025 1:00 PM EDT Office Visit [facility] ADULT DENTAL [address] [place] [address] Carly Mari documented as of this encounter Visit Diagnoses Diagnosis Asthma, unspecified asthma severity, unspecified whether complicated, unspecified whether persistent documented in this encounter Additional Health Concerns Assessment Noted Time PHQ-9 Depression Total Score: 0 01/11/20 25 3:41 PM EDT documented as of this encounter Care Teams Life Enrichment Manager Relationship Specialty Start Date End Date Jaxon Osborne MD [address] [place] [address] PCP - General Internal Medicine 03/07/12 documented as of this encounter
--- OUTSIDE RECORDS SUMMARY | 2025-03-16 08:46 | XMS_ITS | Encounter Summary ---
Author Organization [employer] [facility] Address [address] [place] [address] Care Team Providers Care Russian History Professor Name Role Phone Jaxon Osborne MD Primary Care Provider +1- [phone] Reason for Visit * Reason Comments Med Refill Encounter Details Date Type Department Care Team (Late st Contact Info) Description 06/23/[address] [facility] PED[facility] [address] [place] [address] Jaxon Osborne MD [address] [place] [address] Social History Tobacco Use Types Packs/Day Years [...] 03/16/2025 2:00 PM EDT Office [facility] ADULT D[facility] [address] [place] [address] Leoncio Oshea DMD [address] [place], [place] [phone] 04/20/2025 1:00 PM EDT Office [facility] [address] [place] [address] Carly Mari documented as of this encounter Visit Diagnoses Not on filedocumented in this encounter Additional Health Concerns Assessment Noted Time PHQ-9 Depression Total Score: 0 01/09/20 23 2:46 PM EST documented as of this encounter Care Teams Russian History Professor Relationship Specialty Start Date End Date Jaxon Osborne MD [address] [place] [address] PCP - General Internal Medicine 03/07/12 documented as of this encounter
--- OUTSIDE RECORDS SUMMARY | 2025-03-16 08:46 | XMS_ITS | Encounter Summary ---
Author Organization [employer] [facility] Address [address] [place] [address] Care Team Providers Care Child Adolescent Psychiatrist Name Role Phone Jaxon Osborne MD Primary Care Provider +1- [phone] Encounter Details Date Type Department Care Team (Latest Contact Info) Description 10/10/2020 Abstract [facility] CONVERSIONS Dental, Provider, DDS Social History [...] Description 03/16/2025 2:00 PM EDT Office Visit [facility] [address] [place] [address] Leoncio Oshea DMD [address] [place] [address] 04/20/2025 1:00 PM EDT Office Visit [facility] [address] [place] [address] Carly Mari documented as of this encounter Visit Diagnoses Not on filedocumented in this encounter Care Teams Child Adolescent Psychiatrist Relationship Specialty Start Date End Date Jaxon Osborne MD [address] [place] [address] PCP - General Internal Medicine 03/07/12 documented as of this encounter
--- OUTSIDE RECORDS SUMMARY | 2025-03-16 08:46 | XMS_ITS | Clinical Summary ---
Author Organization 175 [facility] Address [address] [place] [address] Phone Care Team Providers Care Quality Rn Name Role Phone Jaxon Osborne MD Primary Care Provider [phone] Allergies No known active allergies Medications meloxicam (MOBIC) 15 mg tablet Take 1 Tablet by mouth daily as needed for Pain (TAKE WITH FOOD AND STAY HYDRATED). 3 Active albuterol HFA (PROAIR HFA ; PROVENTIL HFA ; VENTOLIN HFA) 90 mcg/actuation inhaler Inhale 2 Puffs into the lungs. 3 Active amLODIPine (NORVASC) 5 mg tablet Take 1 Tablet by mouth. 3 Active amoxicillin (AMOXIL) 500 mg capsule Take 2 gm (4 tablets) 1 hour before dental appt. 3 Active cholecalciferol (VITAMIN D-3) 25 mcg (1,000 unit) tablet Take 25 mcg by mouth. 3 Active fluticasone propionate (FLONASE) 50 mcg/actuation nasal spray SHAKE LIQUID AND USE 1 TO 2 SPRAYS IN EACH NOSTRIL EVERY DAY NEEDED 3 Active loratadine (CLARITIN) 10 mg tablet Take 1 Tablet by mouth. 2 Active ciclopirox (LOPROX) 0.77 % gel Apply topically 2 (two) times a day. 45 g 5 05/29/20 25 Active Active Problems Problem Noted Date Diagnosed Date Post-traumatic osteoarthritis of right knee 05/02 Primary osteoarthritis of left knee 05/27/2023 PVC (premature ventricular contraction) 04/23/20 23 Essential hypertension 01/05/2023 Right hip pain 04/17/2021 [...] right hip 04/17 Malignant tumor of prostate ([facility] V24, [facility] V28) 02/02/2019 Chronic benign neutropenia ([facility] V24) 017 Thrombocytopenic disorder ([facility] V24) 05/11/20 17 Hyperplasia of prostate 05/06/2015 Encounters Date Type Department Care Team Description 02/28/2025 3:15 PM EDT Office Visit Orthopedic Surgery - [address] [phone] Javier Briggs, DPM Dermatophytosis of nail (Primary Dx); Ingrowing nail; Verruca plantaris; Acquired hammer toe of right foot; Hammer toe of left foot from Last 3 Months Surgical History Surgery Date Site/Laterality Comments OTHER SURGICAL HISTORY Bilateral PROCEDURE: IN ARTHRP ACETBLR/PROX FEM PROSTC AGRFT/ALGRFT; COMMENT: Right [...] - - Weight 103 kg (228 lb) 02/28/2025 3:19 PM EDT Height 185.4 cm (6' 0.99 ) 02/28/2025 3:19 PM ED T Body Mass Index 30.09 02/28/2025 3:19 PM EDT Plan of Treatment Upcoming Encounters Date Type Department Care Team (Late st Contact Info) Description 05/07/2025 3:15 PM EDT Office Visit Orthopedic Surgery - [place] [address] [phone] Javier Briggs, DPM [address] [address] Health Maintenance Due Date Last Done Comments Zoster Vaccines (1 of 2) 1983 COVID-19 Vaccine (3 - Pfizer risk series) 04/24/2021 03/27/2021, 03/05/2021 Colorectal Cancer Screening: Colonoscopy 10/04/2022 Medicare Annual Wellness Visit 10/04/2022 Social Influencers of Health Screening 10/04/2022 Hypertension/CHF/CAD Annual BMP Blood Test 01/07/2024 01/06/2023 RSV Immunization Adult Patients (1 - Risk 60-74 years 1-dose series) 2024 DTaP,Tdap,and Td Vaccines (2 - Td or Tdap) 11/14/2024 11/14/2014 Depression Screening 01/10/2026 01/10/2025 Cholesterol Screening (Lipid Panel) 10/06/2029 10/06/2024, 08/28/2021 [...] * Annual BMP Blood Test (01/06/2023) Pathologist [facility] Annual BMP Blood Test abstracted Historical Provider HEALTH MAINTENANCE Final Result * Lipid panel (08/28/2021) [facility] Triglycerides 0 0 - 0 mg/dL Comment:no [...] Insurance MEDICARE MEDICAID - [place] Care Teams Quality Rn Relationship Specialty Start Date End Date Jaxon Osborne MD [address] [place] [address] PCP - General Internal Medicine 06/24/22
== END 2025-03-16 09:18 | disposition home or self-care (01) ==
LOC: HO.HUSH 08:32
PROVIDERS: PCP Internal Medicine; Visit Provider Urology
DX: C61 Malignant neoplasm of prostate (principal)
CPT/HCPCS: 99213; G2211

== ENCOUNTER → 2025-03-16 08:32 | Outpatient (BNVA) | payer MEDICARE, MEDICAID, SELFPAY | PROVIDERS: PCP Internal Medicine; Visit Provider Urology | DX: Z13.89 Encounter for screening for other disorder (principal) ==

== ENCOUNTER 2025-05-22 06:46 | Day surgery (SDC) | payer MEDICARE, MEDICAID, SELFPAY ==
--- OUTSIDE RECORDS SUMMARY | 2025-05-01 13:53 | XMS_ITS | Clinical Summary ---
Author Organization 175 [facility] Address [address] [place] [address] Phone Care Team Providers Care Corporate Safety Coordinator Name Role Phone Jaxon Osborne MD Primary Care Provider [phone] Allergies No known active allergies Medications meloxicam [...] right hip 04/17 Malignant tumor of prostate ([facility] V24, [facility] V28) 02/02/2019 Chronic benign neutropenia ([facility] V24) 017 Thrombocytopenic disorder ([facility] V24) 05/11/20 17 Hyperplasia of prostate 05/06/2015 Encounters Date Type Department Care Team Description 02/28/2025 3:15 PM EDT Office Visit Orthopedic Surgery - [address] [address] Javier Briggs, DPM Dermatophytosis of nail (Primary Dx); Ingrowing nail; Verruca plantaris; Acquired hammer toe of right foot; Hammer toe of left foot from Last 3 Months Surgical History Surgery Date Site/Laterality Comments OTHER SURGICAL HISTORY Bilateral PROCEDURE: DE ARTHRP ACETBLR/PROX FEM PROSTC AGRFT/ALGRFT; COMMENT: Right [...] PM EDT Office Visit Orthopedic Surgery - [place] [address] [phone] Javier Briggs, DPM [address] [address] Health Maintenance Due Date Last Done Comments [...] * Annual BMP Blood Test (01/06/2023) Pathologist [facility] Annual BMP Blood Test abstracted Historical Provider HEALTH MAINTENANCE Final Result * Lipid panel (08/28/2021) [facility] Triglycerides 0 0 - 0 mg/dL Comment:no [...] Insurance MEDICARE MEDICAID - [place] Care Teams Corporate Safety Coordinator Relationship Specialty Start Date End Date Jaxon Osborne MD [address] [place] [address] PCP - General Internal Medicine 06/24/22
--- OUTSIDE RECORDS SUMMARY | 2025-05-01 13:53 | XMS_ITS | Clinical Summary ---
Author Organization [employer] Address [address] [place] [address] [address] [place] [address] Care Team Providers Care Faith Healer Name Role Phone Jaxon Osborne MD Primary Care Provider [phone] Allergies No known active allergies Medications loratadine (Claritin) 10 MG tablet Take 1 tablet by mouth at bed time. 2 Active amoxicillin (Amoxil) 500 MG capsule Take [...] 3 4 Active amLODIPine (Norvasc) 5 MG tabletIndications: Essential hypertension Take 1 tablet (5 mg) by mouth Once per day. 90 tablet 3 4 Active cholecalciferol (Vitamin D3) 25 MCG (1000 UT) tabletIndications: Vitamin D deficiency TAKE 1 TABLET BY MOUTH EVERY MORNING 60 tablet 11 5 Active albuterol 108 (90 Base) MCG/ACT inhalerIndications :Asthma, unspecified asthma severity, unspecified whether complicated, unspecified whether persistent INHALE 2 PUFFS BY MOUTH EVERY 4 HOURS NEEDED FOR WHEEZING 18 g 5 5 Active amoxicillin (Amoxil) 500 MG capsule Take 4 tabs (2 grams) 1 hour prior to dental procedure 16 capsule 5 Active Diclofenac Sodium 1 % gelIndications:Gen eralized osteoarthritis To apply to the affected area 3 times a day 100 g 3 5 Active Active Problems Problem Noted Date Diagnosed Date Essential hypertension 01/05/2023 Chest pain 01/05/2023 Malignant tumor of prostate 02/02/2019 Chronic benign neutropenia 05/11/2017 Thrombocytopenic disorder 05/11/2017 Hyperplasia of prostate 05/06/2015 Generalized osteoarthritis 05/06/2010 Encounters Date Type Department Care Team Description 04/20/2025 Orders Only [facility] [address] [place] [address] Jaxon Osborne MD Generalized osteoarthritis (Primary Dx) 04/20/2025 Telephone [facility] [address] [place] [address] Jaxon Osborne MD Med Refill 04/04/2025 2:00 PM EDT Office Visit [facility] [address] [place] [address] Carly Mari Dental caries (Primary Dx) 03/01/2025 11:00 AM EDT Office Visit [facility] [address] [place] [address] Matilda Flores 02/27/2025 Refill [facility] [address] [place] [address] Jaxon Osborne MD Asthma, unspecified asthma severity, unspecified whether complicated, unspecified whether persistent 02/26/2025 Refill [facility] [address] [place] [address] Jaxon Osborne MD Asthma, unspecified asthma severity, unspecified whether complicated, unspecified whether persistent 02/23/2025 10:00 AM EDT Office Visit [facility] [address] [place] [address] Leoncio Oshea DMD Dental caries (Primary Dx) 02/23/2025 Telephone [facility] [address] [place] [address] Jaxon Osborne MD 02/13/2025 Orders Only GENERIC EXTERNAL DATA DEPARTMENT Provider, Generic External Data 01/31/2025 10:00 AM EDT Office Visit [facility] [address] [facility] [place] [address] Leoncio Oshea DMD Dental caries (Primary Dx) 01/30/2025 Telephone [facility] [address] [place] [address] Jaxon Osborne MD FYI from Last 3 Months Immunizations Immunization Administration [...] Sign Reading Time Taken Comments Blood Pressure 116/78 04/04/2025 1:44 PM EDT Pulse 62 01/10/2025 3:37 PM EDT Temperature 36.6 C (97.9 F) 01/10/2025 3:37 PM EDT Respiratory Rate 20 01/10/2025 3:37 PM EDT Oxygen Saturation 100% 01/10/2025 3:37 PM EDT Inhaled Oxygen Concentration - - Weight 102 kg (224 lb) 01/10/2025 3:37 PM EDT Height 185.4 cm (6' 1 ) 01/10/2025 3:37 PM EDT Body Mass Index 29.55 01/10/2025 3:37 PM EDT Plan of Treatment Upcoming Encounters Date Type Department Care Team (Late st Contact Info) Description 05/08/2025 2:00 PM EDT Office Visit [facility] [address] [place] [address] Leoncio Oshea DMD [address] [place] [address] 10/05/2025 1:00 PM EST Office Visit [facility] [address] [place] [address] Carly Mari Health Maintenance Due Date Last Done Comments CT Colonography 1964 Colonoscopy 1964 Colorectal Cancer Screening 1964 FIT DNA/Cologuard 1964 FIT 1964 FOBT 1965 Sigmoidoscopy 1965 Disability Screening 1964 Hepatitis A Vaccines (1 of 2 - Risk 2-dose series) 1983 Zoster Vaccines (1 of 2) 1983 RSV Patients and Patients Aged 60 years or older (1 - Risk 60-74 years 1-dose series) 2024 DTaP/Tdap/Td Vaccines (2 - Td or Tdap) 11/14/2024 11/14/2014 SDOH Screening 03/02/2025 03/02/2024 Dental Oral Exam 10/05/2025 04/04/2025, 04/17/2024 Dental Prophylaxis 10/05/2025 04/04/2025, 1 12/19/2023, 04/17/2024, Additional history exists COVID-19 Vaccine (3 - Pfizer risk series) 10/06/2025 03/27/2021, 03/05/2021 Postponed from 04/24/2021 (Patient Refused) Alcohol/Substance Use Screening 01/10/2026 01/10/2025 Depression Screening 01/10/2026 01/10/2025, 01/11/20 Tobacco Screening 04/04/2026 04/04/2025 Dental X-Ray: Bitewings 04/05/2026 04/04/20, 03/01/2025, 02/10/2024, Additional history exists Dental X-Ray: Full Mouth [...] Procedure Name Priority Date/Time Associated Diagnosis Comments PERIODIC ORAL EVALUATION - ESTABLISHED PATIENT Routine 04/04/2025 2:00 PM EDT Dental caries INTRAORAL - PERIAPICAL EACH ADDITIONAL RADIOGRAPHIC IMAGE Routine 04/04/2025 2:00 PM EDT Dental caries INTRAORAL - PERIAPICAL FIRST RADIOGRAPHIC IMAGE Routine 04/04/2025 2:00 PM EDT Dental caries BITEWINGS - 4 RADIOGRAPHIC IMAGES Routine 04/04/2025 2:00 PM EDT Dental caries ORAL HYGIENE INSTRUCTIONS Routine 04/04/2025 2:00 PM EDT Dental caries CASE PRESENTATION, DETAILED AND EXTENSIVE TREATMENT PLANNING Routine 04/04/2025 2:00 PM EDT Dental caries PROPHYLAXIS - ADULT Routine 04/04/2025 2 :00 PM EDT Dental caries CASE PRESENTATION, DETAILED AND [...] Routine 01/31/2025 10:00 AM EDT Dental caries HEPATITIS C AB W/REFL TO HCV RNA, [...] tumor of prostate (CMS/HCC) Thrombocytopenic disorder (CMS/HCC) PANORAMIC RADIOGRAPHIC IMAGE Routine 02/10/2024 1:00 PM EDT from Last 3 Months or Most Recently Relevant to Health Maintenance Results * (ABNORMAL) Testosterone, Total, males (Adult), IA (02/13/2025 1:24 PM EDT) Testosterone, Total 8(A) 250 - 1100 ng/dL [facility] Comment:For additional infor mation, please refer [email or web address](This link is being provided for informational/educational purposes only.)This test was developed and its analytical performancecharacteristics have been determined by [employer] [place], [place]. It hasnot been cleared or approved by the U.S. Food and DrugAdministration. This assay has been validated pursuantto the CLIA regulations and is used for clinicalpurposes.THIS TEST WAS PERFORMED AT:[facility] [place] [address]FBSNDMJAKHIL EDDY MD,PHD 02/13/2025 1:24 PM EDT 02/13/2025 1:25 PM EDT us Generic External Data Provider LAB BLOOD ORDERAB LES Final Result [facility] [address] [place] [phone] * PSA,Total (02/13/2025 1:24 PM EDT) Prostate Specific Antigen 0.91 <0.05 - 4.0 ng/mL [facility] Comment:PSA methodology: Abb nguyễn Poon i ChemiluminescentMicroparticle Immunoassay (CMIA) 02/13/2025 1:24 PM EDT 02/13/2025 1:25 PM EDT us Generic External Data Provider LAB BLOOD ORDERAB LES Final Result Performing Organization Address [facility] Co de Phone Number [facility] [address] [place] [address] [phone] * Hepatitis C Antibody with Reflex to HCV, RNA, Quantitative, Real-Time PCR (10/06/2024 3:56 PM EST) Pathologist [facility] Hepatitis C Antibody Nonreactive Nonreactive [facility] Comment:Antibodies to HCV no t detected; does not exclude early acuteHCV infection. Blood Venous blood specimen / Unknown 10/06/2024 3:56 PM EST 10/06/2024 5:39 PM EST us Jaxon Osborne MD LAB BLOOD ORDERABLES Final Result Performing Organization Address [facility] Co de Phone Number [facility] [address] [place] [address] [phone] * HIV-1/2 Antigen and Antibodies, Fourth Generation, with Reflexes (10/06/2024 3:56 PM EST) HIV AB/AG Nonreactive Nonreactive [facility] Comment:HIV-1 p24 Ag and/or HIV-1/HIV-2 Ab not detected.A test result that is nonreactive does not exclude thepossibility of exposure to or infection with HIV-1 and/orHIV-2. Nonreactive results in this assay for individualswith prior exposure to HIV-1 and/or HIV-2 may be due toantigen and antibody levels that are below the limit ofdetection of this assay.The [employer] HIV Ag/Ab Combo assay result andsupplemental assay results should be interpreted inconjunction with the patient's clinical presentation,history and other laboratory results. If the results areinconsistent with clinical evidence, additional testing issuggested to confirm the result. Blood Venous blood specimen / Unknown 10/06/2024 3:56 PM EST 10/06/2024 5:39 PM EST us Jaxon Osborne MD LAB BLOOD ORDERABLES Final Result Performing Organization Address City/[facility]/ZIP Co de Phone Number [facility] [address] [place], [place] [phone] * Lipid Panel, Standard (10/06/2024 3:56 PM EST) Triglycerides 52 <150 mg/dL [facility] Comment:Desirable Triglyceri de: less than 150 mg/dLBorderline High Triglyceride 150-199 mg/dLHigh Triglyceride: 200-499 mg/dLVery High Triglyceride: greater than or equal to 5OO mg/dL Cholesterol 170 <200 mg/dL [facility] Comment:Desirable Cholestero l: less than 200 mg/dLBorderline High Cholesterol: 200-239 mg/dLHigh Cholesterol: greater than 239 mg/dL LDL Cholesterol Calculated 86 <100 mg/dL [facility] Comment:Desirable LDL: less than 100 mg/dLNear Optimal/Above Optimal LDL: 110- 129 mg/dLBorderline High LDL: 130-159 mg/dLHigh LDL: 160-189 mg/dLVery High LDL: greater than or equal to 190 mg/dL HDL Cholesterol 74 >40 mg/dL [facility] Comment:Desirable HDL: great er than 40 mg/dL Note: This HDL assay may give artificially low results in patients with liver disease. Blood Venous blood specimen / Unknown 10/06/2024 3:56 PM EST 10/06/2024 5:39 PM EST us Jaxon Osborne MD LAB BLOOD ORDERABLES Final Result [facility] [address] [place] [address] [phone] from Last 3 Months or Most Recently Relevant to Health Maintenance Insurance [place] [address] [place] [id number] [facility] ST[facility]ARD D[facility]AL-[facility] MEDICAID STAND ADULT Care Teams Faith Healer Relationship Specialty Start Date End Date Jaxon Osborne MD [address] [place] [phone] PCP - General Internal Medicine 03/07/12
[2025-05-22 07:04] VITALS: BMI 29.7
[2025-05-22 07:06] VITALS: BP 128/84; PULSE 52; RESP 18; TEMP 36.9; O2SAT 97; BMI 29.6
[2025-05-22] MEDS: Lactated Ringers 1,000 ML 50 ML IVCONT (07:32)
--- NOTE | 2025-05-22 07:42 | MHC.SHP ---
Pre-Procedural Eval Section A - 24 Hr Update-Section A only Date of Service: 05/22/25 Section B - Complete if H&P > 30 days Chief Complaint: Encounter for screening for malignant neoplasm of Relevant Family History (Specify if Yes): No Relevant Social History: None Present Medications: see Short Stay Collaborative assessment Medical History: Significant History (Prostate cancer OA (osteoarthritis) BPH (benign prostatic hyperplasia) Elevated PSA) History of Previous Operations: Relevant previous surgery/procedure and date(s) ( History of left hip replacement History of right hip replacement History of orthopedic surgery) Allergies: Allergies Allergy/AdvReac Type Severity Reaction Status Date / Time No Known Allergies Allergy Verified 03/16/25 08:35 Review of Systems Sugical H&P ROS: Negative: Constitution, Cardiovascular, Respiratory, Neurological, Psychiatric, Hem-Onc, Allergic/Immunologic, Gastrointestinal, Genitourinary, Musculoskeletal, Integumentary, Endocrine and Eyes/Ears/Nose/Throat Exam Surgical H&P Exam: Normal: HEENT, Normal: Heart, Normal: Lungs, Normal: Extremities, Normal: Abdomen, Normal: Skin and Normal: Neurological Plan Diagnosis/Plan: Unchanged I have reviewed the history and physical and performed a pertinent physical examination on my patient. No changes have occurred unless specified. Time Spent With Patient Time: Total time managing care of this patient today ____ minutes.
--- NOTE | 2025-05-22 08:19 | HO.ANESPROP2 ---
[facility] Active Problems Active Problems: All Active Problems (Updated 10/24/24 @ 11:03 by Neri Lau MD) PAC (premature atrial contraction) (Acute) Precordial chest pain (Acute) Prostate cancer (Acute) Past Medical History Medical History Prostate cancer OA (osteoarthritis) BPH (benign prostatic hyperplasia) Elevated PSA Functional capacity: independent ambulation Family History Family History Mother No problems noted. Father Prostate cancer Family history of problems with anesthesia: No Surgical History Surgical History H/O colonoscopy History of left hip replacement History of right hip replacement History of orthopedic surgery History of Problems with Anesthesia: No Social History Social History Alcohol intake: never Patient Tobacco Use Status: Former Tobacco user Have you been hit, kicked, punched, or otherwise hurt by someone within the past year? If so, by whom?: No Are you DNR?: No Advance Directives: No Advance Directives Information Provided: Yes Meds Allergies Allergy/AdvReac Type Severity Reaction Status Date / Time No Known Allergies Allergy Verified 03/16/25 08:35 Active Medications: Current Medications Lactated Ringer's (Lr) 1,000 mls @ 50 mls/hr IVCONT .Q20H ERIN Last Admin: 05/22/25 07:32 Dose: 50 mls/hr Home Medications ?Medication ?Instructions ?Recorded ?Confirmed ?Last Taken ?Type albuterol sulfate 90 mcg/actuation 1 inh inhalation Q4-6H PRN sob 02/03/23 05/22/25 Unknown History aerosol inhaler amlodipine 5 mg tablet 5 mg PO DAILY 02/03/23 05/22/25 Unknown History cholecalciferol (vitamin D3) 25 25 mcg PO QAM 02/03/23 05/22/25 Unknown History mcg (1,000 unit) tablet fluticasone propionate 50 1 - 2 spray intranasal DAILY PRN 02/03/23 05/22/25 Unknown History mcg/actuation nasal Shortness Of Breath spray,suspension Exam Exam Date and Time: 05/21/2025 Height,Weight and Vital Signs: Height 6 ft 1 in Weight 101.741 kg Last Vital Signs Temp 98.5 F 05/22/25 07:06 Pulse 52 05/22/25 07:06 Resp 18 05/22/25 07:06 BP 128/84 05/22/25 07:06 Pulse Ox 97 05/22/25 07:06 O2 Del Method Room Air 05/22/25 07:06 Airway Mallampati Class: II TM Dist: >3cm Neck ROM: Full Loose/Missing/Broken Teeth: No Heart: rrr Lungs: cta Other: normally oriented Assessment and Plan Final Anesthetic Review Family History of Problems with Anesthesia: No History of Problems with Anesthesia: No NPO: Yes ASA Class: III Final Preanesthetic Review: No Changes in Pt Med Stat, Meds/Allgs Chart Reviewed, Consent Obtained/Reviewed and Anes Risks/Benef Reviewed Patient Risk: Intermediate Procedure Risk: Low Anesthetic Plan Anesthetic Plan: MAC: Disposition: Standard PACU
--- NOTE | 2025-05-22 08:47 | HO.OPN-COLON ---
Colonoscopy Operative Note Operative Note Date of Service: 05/22/25 Narrative: Operative Information Procedure Description: Colonoscopy Indication: screening Anesthesia: MAC COLONOSCOPY Instrument: Olympus variable stiffness pediatric scope 190L Colonoscopy Monitoring: Vital signs and clinical assessment, continuous EKG monitoring, Pulse oximetry, Carbon Dioxide monitoring and blood pressure monitoring were done throughout the procedure. Colon withdrawal time was 9 minutes. Procedure: The patient was placed in the left lateral decubitis position and pre-procedure medications were administered. After a digital rectal examination of the ano-rectum, the video colonoscope was inserted into the rectum and advanced through the colon to the cecum/TI. The colonoscope was slowly withdrawn in a retrograde panoramic fashion and the colon mucosa was carefully examined including a retroflexed view of the rectum. Findings and interventions are described below. Procedure Difficulty: moderate Findings: Terminal Ileum-normal Cecum:normal Ascending Colon: normal Transverse Colon - 10 mm sessile polyp removed with cold snare Descending Colon:normal Sigmoid Colon: mdoerate diverticulosis Rectum: Retroflexion with small internal hemorrhoids seen, grade I Anorectum - normal Intervention: cold snare Colon preparation: Liberty Bowel Preparation Scale Right colon; 2 Transverse colon: 2 Left colon; 2 (0 = Unprepared colon segment with mucosa not seen due to solid stool that cannot be cleared. 1 = Portion of mucosa of the colon segment seen, but other areas of the colon segment not well seen due to staining, residual stool and/or opaque liquid. 2 = Minor amount of residual staining, small fragments of stool and/or opaque liquid, but mucosa of colon segment seen well. 3 = Entire mucosa of colon segment seen well with no residual staining, small fragments of stool or opaque liquid) Impression and Post Procedure Diagnosis: diverticulosis colon polyp x 1 internal hemorrhoids Plan: High fiber diet leaflet Avoid straining at stool, epsom salts and sitz bath, anusol supps or cream Repeat Colonoscopy in 5 years due to polyp or earlier if clinically indicated Above findings were reviewed with the patient and relevant handouts were provided if indicated.
[2025-05-22 08:58] VITALS: BP 112/70; PULSE 58; RESP 16; TEMP 36.6; O2SAT 100
[2025-05-22 09:15] VITALS: BP 147/94; PULSE 55; RESP 18; TEMP 36.6; O2SAT 99
== END 2025-05-22 09:45 | disposition home or self-care (01) ==
PROVIDERS: PCP Internal Medicine; Visit Provider Internal Medicine Gastroenterology
PROC: 0DJD8ZZ Inspection of Lower Intestinal Tract, Via Natural or Artificial Opening Endoscopic (ICD-10-PCS; CPT 45378; principal; 2025-05-22 08:20)
DX: Z12.11 Encounter for screening for malignant neoplasm of colon (principal); D12.3 Benign neoplasm of transverse colon; K57.30 Diverticulosis of large intestine without perforation or abscess without bleeding; K64.0 First degree hemorrhoids; N40.0 Benign prostatic hyperplasia without lower urinary tract symptoms; R97.20 Elevated prostate specific antigen [PSA]; C61 Malignant neoplasm of prostate; M19.90 Unspecified osteoarthritis, unspecified site; Z79.899 Other long term (current) drug therapy; Z96.643 Presence of artificial hip joint, bilateral; Z87.891 Personal history of nicotine dependence; Z98.890 Other specified postprocedural states
CPT/HCPCS: 45385; 88305; J2003; J2704; J3010

== ENCOUNTER → 2025-05-22 06:46 | Outpatient (BNV) | payer MEDICARE, MEDICAID, SELFPAY | PROVIDERS: PCP Internal Medicine; Visit Provider Internal Medicine Gastroenterology | DX: Z12.11 Encounter for screening for malignant neoplasm of colon (principal); D12.3 Benign neoplasm of transverse colon; K57.30 Diverticulosis of large intestine without perforation or abscess without bleeding; K64.0 First degree hemorrhoids | CPT/HCPCS: 45385 ==

== ENCOUNTER 2025-06-25 15:23 | Outpatient (REF) | payer MEDICARE, MEDICAID, SELFPAY ==
--- OUTSIDE RECORDS SUMMARY | 2025-06-25 17:02 | XMS_ITS | Encounter Summary ---
Author Organization [employer] [facility] Address [address] [place] [address] Care Team Providers Care Sole Cutter Name Role Phone Jaxon Osborne MD Primary Care Provider +1- [phone] Reason for Visit * Reason Comments Med Refill Encounter Details Date Type Department Care Team (Late st Contact Info) Description 06/23/2023 Refill [facility] MED & PEDS [address] [place] [address] Jaxon Osborne MD [address] [place] [address] Social History Tobacco Use Types Packs/Day Years [...] Care Team (Late st Contact Info) Description 10/05/2025 1:00 PM EST Office Visit [facility] ADULT DENTAL [address] [place] [address] Carly Mari documented as of this encounter Visit Diagnoses Not on filedocumented in this encounter Additional Health Concerns Assessment Noted Time PHQ-9 Depression Total Score: 0 01/09/20 23 2:46 PM EST documented as of this encounter Care Teams Sole Cutter Relationship Specialty Start Date End Date Jaxon Osborne MD [address] [place] [address] PCP - General Internal Medicine 03/07/12 documented as of this encounter
--- OUTSIDE RECORDS SUMMARY | 2025-06-25 17:02 | XMS_ITS | Encounter Summary ---
Author Organization [employer] Address [address] [facility] 7t [place] [address] Care Team Providers Care Die Technician Name Role Phone Jaxon Osborne MD Primary Care Provider +1- [phone] Reason for Visit * Reason Onset Date Comments appt 01/02/2025 Encounter Details Date Type Department Care Team ([facility] st Contact Info) Description 01/02/2025 Telephone [facility] ADULT DENTAL [address] [place], [place] [phone] Leoncio Oshea, DMD [address] [place], [place] [phone] appt Social History Tobacco Use Types Packs/Day [...] Description 10/05/2025 1:00 PM EST Office Visit [facility]AL [address] [place] [address] Carly Mari documented as of this encounter Visit Diagnoses Not on filedocumented in this encounter Additional Health Concerns Assessment Noted Time PHQ-9 Depression Total Score: 0 01/09/20 23 2:46 PM EST documented as of this encounter Care Teams Die Technician Relationship Specialty Start Date End Date Jaxon Osborne MD [address] [place] [address] PCP - General Internal Medicine 03/07/12 documented as of this encounter
--- OUTSIDE RECORDS SUMMARY | 2025-06-25 17:02 | XMS_ITS | Encounter Summary ---
Author Organization [employer] Address [address] [place] [address] Care Team Providers Care Director Recreation Name Role Phone Jaxon Osborne MD Primary Care Provider +1- [phone] Encounter Details Date Type Department Care Team (Latest Contact Info) Description 06/08/2022 Abstract [facility] CONVERSIONS Dental, Provider, [...] Description 10/05/2025 1:00 PM EST Office Visit [facility] ADULT DENTAL [address] [place] [address] Carly Mari documented as of this encounter Visit Diagnoses Not on filedocumented in this encounter Care Teams Director Recreation Relationship Specialty Start Date End Date Jaxon Osborne MD [address] [place] [address] PCP - General Internal Medicine 03/07/12 documented as of this encounter
--- OUTSIDE RECORDS SUMMARY | 2025-06-25 17:02 | XMS_ITS | Clinical Summary ---
Author Organization [address] [facility] Address [address] [place] [address] Phone Care Team Providers Care Well Driller Name Role Phone Jaxon Osborne MD Primary Care Provider +1 -[phone] Allergies No known active allergies Medications meloxicam [...] Take 1 Tablet by mouth. 2 Active clotrimazole (LOTRIMIN) 1 % cream Apply topically 2 (two) times a day. 30 g 3 5 07/18/20 25 Active ciclopirox (LOPROX) 0.77 % gel Apply topically 2 (two) times a day. 45 g 5 05/29/20 25 Active Problems Problem Noted Date Diagnosed Date [...] right hip 04/17 Malignant tumor of prostate ([facility] V24, [facility] V28) 02/02/2019 Chronic benign neutropenia ([facility] V24) 017 Thrombocytopenic disorder ([facility] V24) 05/11/20 17 Hyperplasia of prostate 05/06/2015 Encounters Date Type Department Care Team Description 06/18/2025 3:00 PM EDT Office Visit Orthopedic Surgery [address] [address] Javier Briggs DPM Dermatophytosis of nail (Primary Dx); Ingrowing nail; Verruca plantaris; Acquired hammer toe of right foot; Hammer toe of left foot 05/07/2025 3:15 PM EDT Office Visit Orthopedic Surgery [facility] [address] [address] Javier Briggs DPM Dermatophytosis of nail (Primary Dx); Hammer toe of left foot; Acquired hammer toe of right foot; Ingrowing nail; Verruca plantaris from Last 3 Months Surgical History Surgery Date Site/Laterality Comments OTHER SURGICAL HISTORY Bilateral PROCEDURE: MT ARTHRP ACETBLR/PROX FEM PROSTC AGRFT/ALGRFT; COMMENT: Right [...] Oxygen Concentration - - Weight 103 kg (227 lb 1.2 oz) 06/18/2025 3:28 PM EDT Height 185.4 cm (6' 0.99 ) 06/18/2025 3:28 PM ED T Body Mass Index 29.97 06/18/2025 3:28 PM EDT Plan of Treatment Upcoming Encounters Date Type Department Care Team (Late st Contact Info) Description 07/19/2025 11:00 AM EDT Office Visit Orthopedic Surgery - [address] [address] Javier Briggs, DPM [address] [place] [phone] Health Maintenance Due Date Last Done Comments Zoster Vaccines (1 of 2) 1983 COVID-19 Vaccine (3 - Pfizer risk series) 04/24/2021 03/27/2021, 03/05/2021 Colorectal Cancer Screening: Colonoscopy 10/04/2022 Medicare Annual Wellness Visit 10/04/2022 Social Influencers of Health Screening 10/04/2022 Hypertension/CHF/CAD Annual BMP Blood Test 01/07/2024 01/06/2023 RSV Immunization Adult Patients (1 - Risk 60-74 years 1-dose series) 2024 Depression Screening 11/01/2024 DTaP,Tdap,and Td Vaccines (2 - Td or Tdap) 11/14/2024 11/14/2014 Influenza Vaccine (#1) 2025 , 09/07/2023, 09/10/2022, Additional history exists Cholesterol Screening (Lipid Panel) 10/06/2029 10/06/2024, 08/28/2021 Hepatitis B Vaccines Completed 03/26/2015, 11/14/2014, 09/10/2014 Pneumococcal Vaccine: 50+ Years Completed 05/30/2024 HIV Screening Completed 10/06/2024 Hepatitis C Screening Completed 10/06/2024 HIB Vaccines Aged Out No longer eligi [...] * Annual BMP Blood Test (01/06/2023) Pathologist [facility] Annual BMP Blood Test abstracted us Historical Provider MD HEALTH MAINTENANCE Final Result * Lipid panel (08/28/2021) Triglycerides 0 0 - 0 mg/dL Comment:no interpretation Cholesterol 0 0 - 0 mg/dL Comment:no interpretation HDL 0 0 - 0 mg/dL Comment:no interpretation LDL Cholesterol 0 0 - 0 mg/dL Comment:no interpretation Blood Venous blood specimen / Unknown us Historical Provider LAB BLOOD ORDERABLES Leticia l Result from Last 3 Months or Most Recently Relevant to Health Maintenance Insurance MEDICARE MEDICAID - [place] Care Teams Well Driller Relationship Specialty Start Date End Date Jaxon Osborne MD [address] [place] [address] PCP - General Internal Medicine 06/24/22
--- OUTSIDE RECORDS SUMMARY | 2025-06-25 17:02 | XMS_ITS | Encounter Summary ---
Author Organization [employer] Address [address] [facility] 7t [place] [address] Care Team Providers Care Cement Finisher Apprentice Name Role Phone Jaxon Osborne MD Primary Care Provider +1- [phone] Encounter Details Date Type Department Care Team ([facility] st Contact Info) Description 04/20/2025 Orders Only [facility] CHC MED & PEDS [address] [place], [place] [phone] Jaxon Osborne MD [address] [place] [address] Generalized osteoarthritis (Primary Dx) Social History Tobacco Use Types [...] Description 10/05/2025 1:00 PM EST Office Visit [facility] ADULT DENTAL [address] [place] [address] Carly Mari documented as of this encounter Visit Diagnoses Diagnosis Generalized osteoarthritis- Primary Generalized osteoarthrosis, involving multiple sites documented in this encounter Additional Health Concerns Assessment Noted Time PHQ-9 Depression Total Score: 0 01/11/20 25 3:41 PM EDT documented as of this encounter Care Teams Cement Finisher Apprentice Relationship Specialty Start Date End Date Jaxon Osborne MD [address] [place] [address] PCP - General Internal Medicine 03/07/12 documented as of this encounter
--- OUTSIDE RECORDS SUMMARY | 2025-06-25 17:02 | XMS_ITS | Encounter Summary ---
Author Organization [employer] [facility] Address [address] [place] [address] Care Team Providers Care Baby Stroller Rental Clerk Name Role Phone Jaxon Osborne MD Primary Care Provider +1- [phone] Encounter Details Date Type Department Care Team (Latest Contact Info) Description 10/10/2020 Abstract [facility] CONVERSIONS Dental, Provider, DDS Social History [...] Description 10/05/2025 1:00 PM EST Office Visit [facility] ADULT DENTAL [address] [place] [address] Carly Mari documented as of this encounter Visit Diagnoses Not on filedocumented in this encounter Care Teams Baby Stroller Rental Clerk Relationship Specialty Start Date End Date Jaxon Osborne MD [address] [place] [address] PCP - General Internal Medicine 03/07/12 documented as of this encounter
--- OUTSIDE RECORDS SUMMARY | 2025-06-25 17:02 | XMS_ITS | Encounter Summary ---
Author Organization [employer] Address [address] [facility] 7 [place] [address] Care Team Providers Care Steam Drier Tender Name Role Phone Jaxon Osborne MD Primary Care Provider +1- [phone] Reason for Visit * Reason Comments Med Refill Encounter Details Date Type Department Care Team ([facility] st Contact Info) Description 02/27/2025 Refill [facility] CHC MED & PEDS [address] [place], [place] [phone] Jaxon Osborne MD [address] [place] [address] Asthma, unspecified asthma severity, unspecified whether complicated, [...] Upcoming Encounters Date Type Department Care Team ([facility] st Contact Info) Description 10/05/2025 1:00 PM EST Office Visit [facility] ADULT DENTAL [address] [place] [address] Carly Mari documented as of this encounter Visit Diagnoses Diagnosis Asthma, unspecified asthma severity, unspecified whether complicated, unspecified whether persistent documented in this encounter Additional Health Concerns Assessment Noted Time PHQ-9 Depression Total Score: 0 01/11/20 25 3:41 PM EDT documented as of this encounter Care Teams Steam Drier Tender Relationship Specialty Start Date End Date Jaxon Osborne MD [address] [place] [address] PCP - General Internal Medicine 03/07/12 documented as of this encounter
--- OUTSIDE RECORDS SUMMARY | 2025-06-25 17:02 | XMS_ITS | Encounter Summary ---
Author Organization [employer] Address [address] [place] [address] Care Team Providers Care Junior Engineer Name Role Phone Jaxon Osborne MD Primary Care Provider +1- [phone] Encounter Details Date Type Department Care Team (Latest Contact Info) Description 04/25/2019 Abstract [facility] CONVERSIONS [...] Description 10/05/2025 1:00 PM EST Office Visit [facility] ADULT DENTAL [address] [place] [address] Carly Mari documented as of this encounter Visit Diagnoses Not on filedocumented in this encounter Care Teams Junior Engineer Relationship Specialty Start Date End Date Jaxon Osborne MD [address] [place] [address] PCP - General Internal Medicine 03/07/12 documented as of this encounter
--- OUTSIDE RECORDS SUMMARY | 2025-06-25 17:02 | XMS_ITS | Encounter Summary ---
Author Organization [employer] Address [address] [facility] 7 [place] [address] Care Team Providers Care Appliance Tester Name Role Phone Jaxon Osborne MD Primary Care Provider +1- [phone] Reason for Visit * Reason Comments Med Refill Encounter Details Date Type Department Care Team ([facility] st Contact Info) Description 09/10/2023 Refill [facility] CHC MED & PEDS [address] [place], [place] [phone] Jaxon Osborne MD [address] [place] [address] Social History Tobacco Use Types Packs/Day Years [...] Description 10/05/2025 1:00 PM EST Office Visit [facility] ADULT DENTAL [address] [place] [address] Carly Mari documented as of this encounter Visit Diagnoses Not on filedocumented in this encounter Additional Health Concerns Assessment Noted Time PHQ-9 Depression Total Score: 0 01/09/20 23 2:46 PM EST documented as of this encounter Care Teams Appliance Tester Relationship Specialty Start Date End Date Jaxon Osborne MD [address] [place] [address] PCP - General Internal Medicine 03/07/12 documented as of this encounter
--- OUTSIDE RECORDS SUMMARY | 2025-06-25 17:02 | XMS_ITS | Encounter Summary ---
Author Organization [employer] Address [address] [facility] 7t [place] [address] Care Team Providers Care Flight Crew Time Clerk Name Role Phone Jaxon Osborne MD Primary Care Provider +1- [phone] Reason for Visit * Reason Onset Date Comments FYI 01/30/2025 Encounter Details Date Type Department Care Team ([facility] st Contact Info) Description 01/30/2025 Telephone [facility] MEDICINE [address] [place] [address] Jaxon Osborne MD 505 [place] [address] FYI Social History Tobacco Use Types Packs/Day [...] placedthe call please return call to pt. [phone] documented in this encounter Plan of Treatment Upcoming Encounters Date Type Department Care Team (Late st Contact Info) Description 10/05/2025 1:00 PM EST Office Visit [facility] ADULT DENTAL [address] [place] [address] Carly Mari documented as of this encounter Visit Diagnoses Not on filedocumented in this encounter Additional Health Concerns Assessment Noted Time PHQ-9 Depression Total Score: 0 01/11/20 25 3:41 PM EDT documented as of this encounter Care Teams Flight Crew Time Clerk Relationship Specialty Start Date End Date Jaxon Osborne MD [address] [place] [address] PCP - General Internal Medicine 03/07/12 documented as of this encounter
--- OUTSIDE RECORDS SUMMARY | 2025-06-25 17:02 | XMS_ITS | Clinical Summary ---
Author Organization [employer] Address [address] [place] [address] 7 [place] [address] Care Team Providers Care Ski Lift Mechanic Name Role Phone Jaxon Osborne MD Primary Care Provider [phone] Allergies No known active allergies Medications loratadine [...] hour prior to dental procedure 16 capsule Active Diclofenac Sodium 1 % gelIndications:Gen eralized osteoarthritis To apply to the affected area 3 times a day 100 g 3 5 Active Active Problems Problem Noted Date Diagnosed Date Essential hypertension 01/05/2023 Chest pain 01/05/2023 Malignant tumor of prostate 02/02/2019 Chronic benign neutropenia 05/11/2017 Thrombocytopenic disorder 05/11/2017 Hyperplasia of prostate 05/06/2015 Generalized osteoarthritis 05/06/2010 Encounters Date Type Department Care Team Description 05/22/2025 Orders Only GENERIC EXTERNAL DATA DEPARTMENT Provider, Generic External Data 05/08/2025 10:00 AM EDT Office Visit [facility] ADULT DENTAL [address] [place] [address] Leoncio Oshea DMD Secondary dental caries associated with failed or defective dental voodoo (Primary Dx) 04/20/2025 Orders Only [facility] MED & PEDS [address] [place] [address] Jaxon Osborne MD Generalized osteoarthritis (Primary Dx) 04/20/2025 Telephone [facility] MED & PEDS [address] [place] [address] Jaxon Osborne MD Med Refill 04/04/2025 2:00 PM EDT Office Visit [facility] ADULT DENTAL [address] [place] [address] Carly Mari Dental caries (Primary Dx) from Last 3 Months Immunizations Immunization Administration [...] Sign Reading Time Taken Comments Blood Pressure 120/72 05/08/2025 10:01 AM EDT Pulse 62 01/10/2025 3:37 PM [...] 10/05/2025 1:00 PM EST Office Visit [facility] ADULT DENTAL [address] [facility] [place] [address] Carly Mari Health Maintenance Due Date Last Done Comments CT Colonography 1965 FIT DNA/Cologuard 1965 FIT 1965 FOBT 1965 Sigmoidoscopy 1965 Disability Screening 1965 Hepatitis A Vaccines (1 of 2 - Risk 2-dose series) 1983 Zoster Vaccines (1 of 2) 1983 RSV Patients and Patients Aged 60 years or older (1 - Risk 60-74 years 1-dose series) 2024 DTaP/Tdap/Td Vaccines (2 - Td or Tdap) 11/14/2024 11/14/2014 SDOH Screening 03/02/2025 03/02/2024 Influenza Vaccine (#1) 2025 , 09/07/2023, 09/10/2022, Additional history exists Dental Oral Exam 10/05/2025 04/04/2025, 04/17/2024 Dental Prophylaxis 10/05/2025 04/04/2025, 1 12/19/2023, 04/17/2024, Additional history exists COVID-19 Vaccine (3 - Pfizer risk series) 10/06/2025 03/27/2021, 03/05/2021 Postponed from 04/24/2021 (Patient Refused) Alcohol/Substance Use Screening 01/10/2026 01/10/2025 Depression Screening 01/10/2026 01/10/2025, 01/11/20 Dental X-Ray: Bitewings 04/05/2026 04/04/20, 03/01/2025, 02/10/2024, Additional history exists Tobacco Screening 05/08/2026 05/08/2025 Dental X-Ray: Full Mouth 02/10/2027 02/10/2024, 08/01 Lipid Panel 10/06/2029 10/06/2024, 08/02, 04/11/2020 Colonoscopy 05/22/2030 Colorectal Cancer Screening 05/22/2030 Hepatitis B Vaccines Completed 03/26/2015, 11/14/2014, 09/10/2014 [...] Procedure Name Priority Date/Time Associated Diagnosis Comments HEMATOXYLIN AND EOSIN STAIN Routine 05/22/2025 8:52 AM EDT CASE PRESENTATION, DETAILED AND EXTENSIVE TREATMENT PLANNING Routine 05/08/2025 10:00 AM EDT Secondary dental caries associated with failed or defective dental voodoo 4 MOD RESIN-BASED COMPOSITE - 3 SURF, POSTERIOR Routine 05/08/2025 10:00 AM EDT Secondary dental caries associated with failed or defective dental voodoo PERIODIC ORAL EVALUATION - ESTABLISHED PATIENT Routine [...] 04/04/2025 2 :00 PM EDT Dental caries HEPATITIS C AB W/REFL [...] Recently Relevant to Health Maintenance Results * Hematoxylin and Eosin Stain (05/22/2025 8:52 AM EDT) 05/22/2025 8:52 AM EDT 05/22/2025 9:25 AM EDT [facility] LABS - 05/23/2025 12:32 PM EDT ----- ------- Name: Woo Munoz Age/Sex: 59/M : 1965 Unit#: [id number] Attend Dr: Blayne Perry MD Re05/22/25 Status: DEP [facility] Location: [facility] Disch: ----- ------- SPEC : [id number] RECD: 05/22/25 STATUS: AYDIN GORDON NUM: [id number] UMANG: 05/22/[address] [facility] [address]: Blayne Perry MD ENTERED: 05/22/25 SP TYPE: Surgical OTHR DR: Jaxon Osborne MD ORDERED: HE Stain/3, Gross Micro L4 Diagnosis Colon, transverse, polyp: Tubular adenoma, completely excised; negative for high-grade dysplasia and carcinoma. Clinical History Pre-Op Dx: Screening Post-Op Dx: Colon polyp, diverticulosis, hemorrhoids Microscopic Description Microscopic sections reviewed. Material Received Transverse colon polyp Gross Description Received in formalin labeled transverse colon polyp is a 0.3 cm sanchez-red papular tissue fragment, submitted in toto in a cassette labeled A. CEDS IHC S/NG Disclaimer NOTE: Unless otherwise stated, all tissue is formalin-fixed and paraffin-embedded. Some or all of the immunohistochemical tests reported herein may have been developed and their performance characteristics determined by [facility]. They have not been cleared or approved by the U.S. Food and Drug Administration (FDA). However, the FDA has determined that such clearance or approval is not necessary. This laboratory is certified under the Clinical Laboratory Improvement Amendments of 1988 (CLIA) as qualified to perform high complexity clinical laboratory testing. Copies To: Jaxon Osborne MD [address] [address] CONTINUED ON NEXT PAGE ----- ------- Name: Woo Munoz Age/Sex: 59/M : 1965 Unit#: [id number] Attend Dr: Blayne Perry MD Re05/22/25 Status: [facility] Location: [facility] Disch: ----- ------- SPEC : [id number] RECD: 05/22/25 STATUS: AYDIN GORDON NUM: [id number] UMANG: 05/22/[address] [facility] [address]: Blayne Perry MD ENTERED: 05/22/25 SP TYPE: Surgical OTHR DR: Jaxon Osborne MD ORDERED: NENA Stain/3, Gross Micro L4 Copies To: (Continued) Blayne Perry MD [facility] [address] [place] [phone] ----- ------- Signed (signature on file) Fidelia Meza 05/23/25 1232 ----- ------- END OF REPORT us Generic External Data Provider LAB BLOOD ORDERAB LES Final Result [facility] [address] [place] [phone] * Hepatitis C Antibody with Reflex to HCV, RNA, Quantitative, Real-Time PCR (10/06/2024 3:56 PM EST) Hepatitis C Antibody Nonreactive Nonreactive [facility] Comment:Antibodies to HCV no t detected; does not exclude early acuteHCV infection. Blood Venous blood specimen / Unknown 10/06/2024 3:56 PM EST 10/06/2024 5:39 PM EST us Jaxon Osborne MD LAB BLOOD ORDERABLES Final Result Performing Organization Address [facility]/ZIP Co de Phone Number [facility] [address] [place] [address] [phone] * HIV-1/2 Antigen and Antibodies, Fourth Generation, with Reflexes (10/06/2024 3:56 PM EST) HIV AB/AG Nonreactive Nonreactive [facility] Comment:HIV-1 p24 Ag and/or HIV-1/HIV-2 Ab not detected.A test result that is nonreactive does not exclude thepossibility of exposure to or infection with HIV-1 and/orHIV-2. Nonreactive results in this assay for individualswith prior exposure to HIV-1 and/or HIV-2 may be due toantigen and antibody levels that are below the limit ofdetection of this assay.The [employer] HIV Ag/Ab Combo assay result andsupplemental assay results should be interpreted inconjunction with the patient's clinical presentation,history and other laboratory results. If the results areinconsistent with clinical evidence, additional testing issuggested to confirm the result. Blood Venous blood specimen / Unknown 10/06/2024 3:56 PM EST 10/06/2024 5:39 PM EST us Jaxon Osborne MD LAB BLOOD ORDERABLES Final Result Performing Organization Address [facility]/ZIP Co de Phone Number [facility] [address] [place] [address] [phone] * Lipid Panel, Standard (10/06/2024 3:56 PM EST) Triglycerides 52 <150 mg/dL [facility] Comment:Desirable Triglyceri de: less than 150 mg/dLBorderline High Triglyceride 150-199 mg/dLHigh Triglyceride: 200-499 mg/dLVery High Triglyceride: greater than or equal to 5OO mg/dL Cholesterol 170 <200 mg/dL [facility] Comment:Desirable Cholestero l: less than 200 mg/dLBorderline High Cholesterol: 200-239 mg/dLHigh Cholesterol: greater than 239 mg/dL LDL Cholesterol Calculated 86 <100 mg/dL [facility] Comment:Desirable LDL: less than 100 mg/dLNear Optimal/Above Optimal LDL: 110- 129 mg/dLBorderline High LDL: 130-159 mg/dLHigh LDL: 160-189 mg/dLVery High LDL: greater than or equal to 190 mg/dL HDL Cholesterol 74 >40 mg/dL [facility] Comment:Desirable HDL: great er than 40 mg/dL Note: This HDL assay may give artificially low results in patients with liver disease. Blood Venous blood specimen / Unknown 10/06/2024 3:56 PM EST 10/06/2024 5:39 PM EST Jaxon Osborne MD LAB BLOOD ORDERABLES Final Result [facility] [address] [place] [address] [phone] from Last 3 Months or Most Recently Relevant to Health Maintenance Insurance MEDICARE [facility] STANDARD D[facility] MEDICAID STAND ADULT Care Teams Ski Lift Mechanic Relationship Specialty Start Date End Date Jaxon Osborne MD [address] [place] [phone] PCP - General Internal Medicine 03/07/12
[2025-06-25 17:04] LABS: Prostate Specific Antigen 1.49 ng/mL (<0.05-4.0)
== END 2025-06-25 15:24 | disposition home or self-care (01) ==
LOC: HO.LAB 15:23
PROVIDERS: PCP Internal Medicine; Visit Provider Urology
DX: C61 Malignant neoplasm of prostate (principal); Z12.5 Encounter for screening for malignant neoplasm of prostate
CPT/HCPCS: 36415; 84153; 84403

== ENCOUNTER 2025-07-17 14:34 | Outpatient (AMB) | payer MEDICARE, MEDICAID, SELFPAY ==
--- NOTE | 2025-07-17 14:44 | MHC.OFFVIS ---
Intake Visit Reasons: 4m /labs Intake Note: Patient is present for 4M/LABS Urology Medication:NONE Antibiotic Allergy:NONE Blood Thinner:NONE Labs done : 06/25/25 PSA 1.49, Total testosterone :76 Crayon Sorting Machine Feeder Required: No Accompanied by: Self / Same As Patient Allergies No Known Allergies Allergy (Verified 07/17/25 14:45) HPI Comments Details: Alin is a pleasant male. He is a patient of . He seen for the following urologic conditions - prostate cancer Four month follow-up Labs - 02/23 0.9 T 8, 06/25 1.5 75 Had been seen at [facility] with active surveillance At some point treatment options had been encouraged. He was scheduled for external beam radiation with short-term hormone management - GNRH given in September 24 Based upon a review of his notes it appears that he has low volume, grade group 1 prostate cancer. Would recommend continue surveillance. Prostate cancer - Grade Group grade group 1 NCCN 08/19, 04/24 Adenocarcinoma of the prostate - NCCN low risk group - PSA at diagnosis 4.0 Diagnosis was reached by - needle biopsy Biopsy Date: 04/24 Histologic grade: [place] score: 3+3 Positive Biopsies: 2 Negative Biopsies: 10 (%) Positive: Low/1200 Associated Features: Negative TNM Classification of Malignant Tumours (TNM) - T1c Staging Imaging - PET-CT negative Attempt at Prolaris testing made. Insufficient tumor for analysis. Therapeutic plan: Continue active surveillance [facility] Medical History Prostate cancer OA (osteoarthritis) BPH (benign prostatic hyperplasia) Elevated PSA Surgical History H/O colonoscopy History of left hip replacement History of right hip replacement History of orthopedic surgery Family History Mother No problems noted. Father Prostate cancer Social History Alcohol intake: never Patient Tobacco Use Status: Former Tobacco user Review of Systems Const Denies chills and Denies fever(s) Card Reports no additional complaints and Denies syncope Resp Denies cough GI Denies abdominal pain and Denies heartburn Reports as per HPI and Denies change in libido Neuro Denies syncope Psych Denies change in libido Endo Denies change in libido Physical Exam Const General: cooperative, healthy appearing, comfortable and no acute distress Orientation/consciousness: patient oriented x3 HEENT Face and sinus: Yes normal facial exam Mouth: moist mucous membranes Neck Neck: Yes normal visual inspection, Yes full ROM and Yes trachea midline Chest Chest palpation & inspection: normal inspection of the chest Resp Effort & Inspection: normal respiratory effort, able to speak in complete sentences and no respiratory distress GI Inspection: Yes normal to inspection Back/Spine/Pelvis Cervical Spine: normal cervical lordosis Thoracic/Lumbar Spine: thoracic and lumbar spine normal to inspection Skin General skin exam: no rashes or lesions noted Neuro General: patient oriented x3, gait normal, tone normal and moves all extremities Extrem General: Yes normal to inspection and Yes capillary refill normal Assessment & Plan Assessment & Plan (1) Prostate cancer: Comment: Doug 6 on 12/13 Biopsy Sites Code(s): C61 - Malignant neoplasm of prostate Category: Medical Plan Continue q four-month of surveillance Orders: Orders Testosterone, Total 4 Months C61 - Malignant neoplasm of prostate Prostate Specific Antigen 4 Months C61 - Malignant neoplasm of prostate Patient Instructions: This note is constructed using voice recognition software. While every effort has been made to ensure accuracy energy auditor errors may have been included. Imaging studies, laboratory and physical exam results were discussed and reviewed in detail. No major barriers to patient understanding were identified. An opportunity to ask questions regarding the treatment plan was provided. All questions were answered. The patient expressed understanding and agreement with the above treatment plan. The patient is aware they should contact our office by phone for worsening of their current condition or the appearance of new urologic symptoms. Compliance is encouraged with any medications and followup testing that is ordered. It is a privilege to participate in the urologic care of your patient. If you have any questions or concerns regarding treatment for the above conditions, or other urologic issues, please do not hesitate to contact me. The office telephone contact is [phone]. Sincerely, Dr Neri Lau MD, [facility] - Urology Compassionate Specialist Care for the Genitourinary System Coding Level of Care Code Est Pt Level 3 (86199) Complex EM visit Add On G2211 Diagnoses Prostate cancer C61
--- OUTSIDE RECORDS SUMMARY | 2025-07-17 18:16 | XMS_ITS | Encounter Summary ---
Author Organization [employer] Address [address] [place] [address] Care Team Providers Care Adjunct Professor Of Voice Name Role Phone Jaxon Osborne MD Primary Care Provider +1- [phone] Encounter Details Date Type Department Care Team (Latest Contact Info) Description 04/25/2019 Abstract [facility] CONVERSIONS Dental, Provider, DDS Social History [...] 1:00 PM EST Office Visit [facility] ADULT D[facility]AL [address] [place] [address] Carly Mari documented as of this encounter Visit Diagnoses Not on filedocumented in this encounter Care Teams Adjunct Professor Of Voice Relationship Specialty Start Date End Date Jaxon Osborne MD [address] [place] [address] PCP - General Internal Medicine 03/07/12 documented as of this encounter
--- OUTSIDE RECORDS SUMMARY | 2025-07-17 18:16 | XMS_ITS | Clinical Summary ---
Author Organization [employer] Address [address] [place] [address] 7 [place] [address] Care Team Providers Care Grinding Wheel Facer Name Role Phone Jaxon Osborne MD Primary [...] Encounters Date Type Department Care Team Description 07/09/[address] [address] Jaxon Osborne MD 07/06/2025 2:00 PM EDT Clinical Support [address] [address] Nery Stephenson, ADVID Visit for wound check 07/06/2025 Travel 07/04/2025 2:15 PM EDT Office Visit [address] [address] Name, MD Saji Laceration of index finger without foreign body without damage to nail, unspecified laterality, initial encounter (Primary Dx); Encounter for immunization 07/04/2025 Travel 06/25/2025 Orders Only GENERIC EXTERNAL DATA DEPARTMENT Provider, Generic External Data 05/22/2025 Orders Only GENERIC EXTERNAL DATA DEPARTMENT Provider, Generic External Data 05/08/2025 10:00 AM EDT Office Visit [facility] ADULT DENTAL [address] [place] [address] Leoncio Oshea DMD Secondary dental caries associated with failed or defective dental religious (Primary Dx) 04/20/[address] [facility] MED & PEDS [address] [place] [address] Jaxon Osborne MD Generalized osteoarthritis (Primary Dx) 04/20/[address] [facility] [address] [place] [address] Jaxon Osborne MD Med Refill from Last 3 Months Immunizations Immunization Administration Dates Next Due Hep B, adult 03/26/2015,11/14/2014,09/10/2014 Influenza injectable quadriv alent IIV4 with preservative 08/15/2019,07/27/2018 Influenza injectable quadriv alent preservative free 09/07/2023,09/10/2022,08/01/2020 Influenza, seasonal, injecta ble, preservative free 10/06/2024 Pneumococcal Conjugate PCV 20 05/30/2024 Tdap 07/04/2025,11/14/2014 Social History Tobacco Use Types Packs/Day Years [...] Sign Reading Time Taken Comments Blood Pressure 126/62 07/04/2025 2:26 PM EDT Pulse 56 07/04/2025 2:26 PM EDT Temperature 36.7 C (98 F) 07/04/2025 2:26 PM EDT Respiratory Rate 14 07/04/2025 2:26 PM EDT Oxygen Saturation 98% 07/04/2025 2:26 PM EDT Inhaled Oxygen Concentration - - Weight 104 kg (228 lb 6.4 oz) 07/04/2025 2:26 PM EDT Height 185.4 cm (6' 1 ) 07/04/2025 2:26 PM EDT Body Mass Index 30.13 07/04/2025 2:26 PM EDT Plan of Treatment Upcoming Encounters Date Type Department Care Team ([facility] st Contact Info) Description 10/05/2025 1:00 PM EST Office Visit [facility] ADULT DENTAL [address] [place] [address] Carly Mari Health Maintenance Due Date Last Done Comments CT Colonography 1965 FIT DNA/Cologuard 1965 FIT 1965 FOBT 1965 Sigmoidoscopy 1965 Disability Screening 1965 Hepatitis A Vaccines (1 of 2 - Risk 2-dose series) 1983 Zoster Vaccines (1 of 2) 1983 RSV Patients and Patients Aged 60 years or older (1 - Risk 60-74 years 1-dose series) 2024 SDOH Screening 03/02/2025 03/02/2024 Influenza Vaccine (#1) [...] 03/01/2025, 02/10/2024, Additional history exists Tobacco Screening 07/04/2026 07/04/2025 Dental X-Ray: Full Mouth 02/10/2027 02/10/2024, 08/01 Lipid Panel 10/06/2029 10/06/2024, 08/02, 04/11/2020 Colonoscopy 05/22/2030 Colorectal Cancer Screening 05/22/2030 DTaP/Tdap/Td Vaccines (3 - Td or Tdap) 07/04/2035 07/04/2025, 11/14/2014 Hepatitis B Vaccines Completed 03/26/2015, 11/14/2014, 09/10/2014 [...] Procedure Name Priority Date/Time Associated Diagnosis Comments TESTOSTERONE, TOTAL, MALES (ADULT), IA Routine 06/25/2025 3:50 PM EDT PSA, TOTAL Routine 06/25/2025 3:50 PM EDT HEMATOXYLIN AND EOSIN STAIN Routine 05/22/2025 8:52 AM EDT CASE PRESENTATION, DETAILED AND EXTENSIVE TREATMENT PLANNING Routine 05/08/2025 10:00 AM EDT Secondary dental caries associated with failed or defective dental religious 4 MOD RESIN-BASED COMPOSITE - 3 SURF, POSTERIOR Routine 05/08/2025 10:00 AM EDT Secondary dental caries associated with failed or defective dental religious PROPHYLAXIS - ADULT Routine 04/04/2025 2 :00 PM EDT Dental caries BITEWINGS - 4 RADIOGRAPHIC IMAGES Routine 04/04/2025 2:00 PM EDT Dental caries PERIODIC ORAL EVALUATION - ESTABLISHED PATIENT Routine 04/04/2025 2:00 PM EDT Dental caries HEPATITIS C AB [...] * (ABNORMAL) Testosterone, Total, males (Adult), IA (06/25/2025 3:50 PM EDT) [facility] Testosterone, Total 76(A) 250 - 1100 ng/dL [facility] Comment:For additional infor savannah, please refer [email or web address]/faq/[email or web address](This link is being provided for informational/educational purposes only.)This test was developed and its analytical performancecharacteristics have been determined by [employer] [place], [place]. It hasnot been cleared or approved by the U.S. Food and DrugAdministration. This assay has been validated pursuantto the CLIA regulations and is used for clinicalpurposes.THIS TEST WAS PERFORMED AT:[employer] [id number] [place] [id number] W. MASON,MD,PHD 06/25/2025 3:50 PM EDT 06/25/2025 3:50 PM EDT Generic External Data Provider LAB BLOOD ORDERAB LES Final Result Performing Organization Address [facility] Co de Phone Number [facility] [address] [place] [phone] * PSA,Total (06/25/2025 3:50 PM EDT) Prostate Specific Antigen 1.49 <0.05 - 4.0 ng/mL [facility] Comment:PSA methodology: Chelo adrian Alimell i ChemiluminescentMicroparticle Immunoassay (CMIA) 06/25/2025 3:50 PM EDT 06/25/2025 3:50 PM EDT Generic External Data Provider LAB BLOOD ORDERAB LES Final Result Performing Organization Address [facility] Co de Phone Number [facility] [address] [place] [phone] * Hematoxylin and Eosin Stain (05/22/2025 8:52 AM EDT) 05/22/2025 8:52 AM EDT 05/22/2025 9:25 AM EDT Narrative [facility] - 05/23/2025 12:32 PM EDT ----- ------- Name: Woo Mnuoz Age/Sex: 59/M : 1965 Unit#: [id number] Attend Dr: Blayne Perry MD Re05/22/25 Status: [facility] Location: [place] Disch: ----- ------- SPEC : [id number] RECD: 05/22/25 STATUS: AYDIN GORDON NUM: [id number] UMANG: 05/22/[address] [facility] DR: Blayne Perry MD ENTERED: 05/22/25 [...] developed and their performance characteristics determined by [facility]. They have not been cleared or approved by the U.S. Food and Drug Administration (FDA). However, the FDA has determined that such clearance or approval is not necessary. This laboratory is certified under the Clinical Laboratory Improvement Amendments of 1988 (CLIA) as qualified to perform high complexity clinical laboratory testing. Copies To: Jaxon Osborne MD [address] [address] CONTINUED ON NEXT PAGE ----- ------- Name: Woo Munoz Age/Sex: 59/M : 1965 Unit#: [id number] Attend Dr: Blayne Perry MD Re05/22/25 Status: [facility] Location: [facility] Disch: ----- ------- SPEC : [id number] RECD: 05/22/25 STATUS: AYDIN GORDON NUM: [id number] UMANG: 05/22/[address] [facility] DR: Blayne Perry MD ENTERED: 05/22/25 SP TYPE: Surgical OTHR DR: Jaxon Osborne MD ORDERED: NNEA Anna/3, Gross Micro L4 Copies To: (Continued) Blayne Perry MD [facility] [address] [place] [phone] ----- ------- Signed (signature on file) Fidelia Austin 05/23/25 1232 ----- ------- END OF REPORT Generic External Data Provider LAB BLOOD ORDERAB LES Final Result Performing Organization Address [facility]/ZIP Co de Phone Number [facility] [address] [place] [phone] * Hepatitis C Antibody with Reflex to HCV, RNA, Quantitative, Real-Time PCR (10/06/2024 3:56 PM EST) Hepatitis C Antibody Nonreactive Nonreactive [facility] Comment:Antibodies to HCV no t detected; does not exclude early acuteHCV infection. Blood Venous blood specimen / Unknown 10/06/2024 3:56 PM EST 10/06/2024 5:39 PM EST us Jaxon Osborne MD LAB BLOOD ORDERABLES Final Result Performing Organization Address [facility] Co de Phone Number [facility] [address] [place] [phone] * HIV-1/2 Antigen and Antibodies, Fourth Generation, with Reflexes (10/06/2024 3:56 PM EST) HIV AB/AG Nonreactive Nonreactive [facility] Comment:HIV-1 p24 Ag and/or HIV-1/HIV-2 Ab not detected.A test result that is nonreactive does not exclude thepossibility of exposure to or infection with HIV-1 and/orHIV-2. Nonreactive results in this assay for individualswith prior exposure to HIV-1 and/or HIV-2 may be due toantigen and antibody levels that are below the limit ofdetection of this assay.The [place] HIV Ag/Ab Combo assay result andsupplemental assay results should be interpreted inconjunction with the patient's clinical presentation,history and other laboratory results. If the results areinconsistent with clinical evidence, additional testing issuggested to confirm the result. Blood Venous blood specimen / Unknown 10/06/2024 3:56 PM EST 10/06/2024 5:39 PM EST us Jaxon Osborne MD LAB BLOOD ORDERABLES Final Result Performing Organization Address City/[facility]/ZIP Co de Phone Number [facility] [address] [place] [phone] [phone] * Lipid Panel, Standard (10/06/2024 3:56 PM EST) Triglycerides 52 <150 mg/dL [facility] Comment:Desirable Triglyceri de: less than 150 mg/dLBorderline High Triglyceride 150-199 mg/dLHigh Triglyceride: 200-499 mg/dLVery High Triglyceride: greater than or equal to 5OO mg/dL Cholesterol 170 <200 mg/dL [facility] Comment:Desirable Cholestero l: less than 200 mg/dLBorderline High Cholesterol: 200-239 mg/dLHigh Cholesterol: greater than 239 mg/dL LDL Cholesterol Calculated 86 <100 mg/dL [facility] Comment:Desirable LDL: less than 100 mg/dLNear Optimal/Above Optimal LDL: 110- 129 mg/dLBorderline High LDL: 130-159 mg/dLHigh LDL: 160-189 mg/dLVery High LDL: greater than or equal to 190 mg/dL HDL Cholesterol 74 >40 mg/dL [facility] Comment:Desirable HDL: great er than 40 mg/dL Note: This HDL assay may give artificially low results in patients with liver disease. Blood Venous blood specimen / Unknown 10/06/2024 3:56 PM EST 10/06/2024 5:39 PM EST us Jaxon Osborne MD LAB BLOOD ORDERABLES Final Result Performing Organization Address City/[facility]/ZIP Co de Phone Number [facility] [address] [place] [phone] from Last 3 Months or Most Recently Relevant to Health Maintenance Insurance [place] [address] [place] [id number] [facility] STANDARD DENTAL-[facility] MEDICAID STAND ADULT Care Teams Grinding Wheel Facer Relationship Specialty Start Date End Date Jaxon Osborne MD [address] [place] [phone] PCP - General Internal Medicine 03/07/12
--- OUTSIDE RECORDS SUMMARY | 2025-07-17 18:16 | XMS_ITS | Encounter Summary ---
Author Organization [employer] [facility] Address [address] [place] [address] Care Team Providers Care Blood Bank Booking Clerk Name Role Phone Jaxon Osborne MD Primary Care Provider +1- [phone] Encounter Details Date Type Department Care Team (Latest Contact Info) Description 10/10/2020 Abstract [facility] CONVERSIONS Dental, Provider, DDS Social [...] Description 10/05/2025 1:00 PM EST Office Visit [facility] ADULT DENTAL [address] [place] [address] Carly Mari documented as of this encounter Visit Diagnoses Not on filedocumented in this encounter Care Teams Blood Bank Booking Clerk Relationship Specialty Start Date End Date Jaxon Osborne MD [address] [place] [address] PCP - General Internal Medicine 03/07/12 documented as of this encounter
--- OUTSIDE RECORDS SUMMARY | 2025-07-17 18:16 | XMS_ITS | Encounter Summary ---
Author Organization [employer] Address [address] [facility] 7t [place] [address] Care Team Providers Care Before School Babysitter Name Role Phone Jaxon Osborne MD Primary Care Provider +1- [phone] Reason for Visit * Reason Onset Date Comments appt 01/02/2025 Encounter Details Date Type Department Care Team ([facility] st Contact Info) Description 01/02/2025 Telephone [facility] ADULT DENTAL [address] [place], [place] [phone] Leoncio Oshea, DMD [address] [place], [place] [phone] appt Social History Tobacco Use Types Packs/Day [...] Description 10/05/2025 1:00 PM EST Office Visit [facility] ADULT DENTAL [address] [place] [address] Carly Mari documented as of this encounter Visit Diagnoses Not on filedocumented in this encounter Additional Health Concerns Assessment Noted Time PHQ-9 Depression Total Score: 0 01/09/20 23 2:46 PM EST documented as of this encounter Care Teams Before School Babysitter Relationship Specialty Start Date End Date Jaxon Osborne MD [address] [place] [address] PCP - General Internal Medicine 03/07/12 documented as of this encounter
--- OUTSIDE RECORDS SUMMARY | 2025-07-17 18:16 | XMS_ITS | Encounter Summary ---
Author Organization [employer] Address [address] [facility] 7 [place] [address] Care Team Providers Care Waste Elimination Name Role Phone Jaxon Osborne MD Primary Care Provider +1- [phone] Reason for Visit * Reason Comments Med Refill Encounter Details Date Type Department Care Team ([facility] st Contact Info) Description 09/10/2023 Refill [facility] [address] [place], [place] [phone] Jaxon Osborne MD [address] [place] [address] Social History Tobacco Use Types Packs/Day Years [...] [facility] [address] [place] [address] Carly Mari documented as of this encounter Visit Diagnoses Not on filedocumented in this encounter Additional Health Concerns Assessment Noted Time PHQ-9 Depression Total Score: 0 01/09/20 23 2:46 PM EST documented as of this encounter Care Teams Waste Elimination Relationship Specialty Start Date End Date Jaxon Osborne MD [address] [place] [address] PCP - General Internal Medicine 03/07/12 documented as of this encounter
--- OUTSIDE RECORDS SUMMARY | 2025-07-17 18:16 | XMS_ITS | Encounter Summary ---
Author Organization [employer] Address [address] [place] [address] Care Team Providers Care Washing Machine Loader Name Role Phone Jaxon Osborne MD Primary Care Provider +1- [phone] Encounter Details Date Type Department Care Team (Latest Contact Info) Description 06/08/2022 Abstract [facility] CONVERSIONS Dental, Provider, DDS Social History [...] 1:00 PM EST Office Visit [facility] ADULT DENTAL [address] [place] [address] Carly Mari documented as of this encounter Visit Diagnoses Not on filedocumented in this encounter Care Teams Washing Machine Loader Relationship Specialty Start Date End Date Jaxon Osborne MD [address] [place] [address] PCP - General Internal Medicine 03/07/12 documented as of this encounter
--- OUTSIDE RECORDS SUMMARY | 2025-07-17 18:16 | XMS_ITS | Encounter Summary ---
Author Organization [employer] Address [address] [facility] 7t [place] [address] Care Team Providers Care Ward Nurse Name Role Phone Jaxon Osborne MD Primary Care Provider +1- [phone] Reason for Visit * Reason Onset Date Comments FYI 01/30/2025 Encounter Details Date Type Department Care Team ([facility] st Contact Info) Description 01/30/2025 Telephone [facility] MED[facility] [address] [place] [address] Jaxon Osborne MD [address] [place] [address] FYI Social History Tobacco Use Types Packs/Day [...] placedthe call please return call to pt. [phone] documented in this encounter Plan of Treatment Upcoming Encounters Date Type Department Care Team (Late st Contact Info) Description 10/05/2025 1:00 PM EST Office Visit [facility] ADULT DENTAL [address] [place] [address] Carly Mari documented as of this encounter Visit Diagnoses Not on filedocumented in this encounter Additional Health Concerns Assessment Noted Time PHQ-9 Depression Total Score: 0 01/11/20 25 3:41 PM EDT documented as of this encounter Care Teams Ward Nurse Relationship Specialty Start Date End Date Jaxon Osborne MD [address] [place] [address] PCP - General Internal Medicine 03/07/12 documented as of this encounter
--- OUTSIDE RECORDS SUMMARY | 2025-07-17 18:16 | XMS_ITS | Encounter Summary ---
Author Organization [employer] [facility] Address [address] [place] [address] Care Team Providers Care Manager New Product Name Role Phone Jaxon Osborne MD Primary Care Provider +1- [phone] Reason for Visit * Reason Comments Med Refill Encounter Details Date Type Department Care Team (Late st Contact Info) Description 06/23/2023 Refill [facility]ED[facility] [address] [place] [address] Jaxon Osborne MD [address] [place] [address] Social History Tobacco Use Types Packs/Day Years [...] [facility] [address] [place] [address] Carly Mari documented as of this encounter Visit Diagnoses Not on filedocumented in this encounter Additional Health Concerns Assessment Noted Time PHQ-9 Depression Total Score: 0 01/09/20 23 2:46 PM EST documented as of this encounter Care Teams Manager New Product Relationship Specialty Start Date End Date Jaxon Osborne MD [address] [place] [address] PCP - General Internal Medicine 03/07/12 documented as of this encounter
--- OUTSIDE RECORDS SUMMARY | 2025-07-17 18:16 | XMS_ITS | Encounter Summary ---
Author Organization [employer] Address [address] [facility] 7t [place] [address] Care Team Providers Care Revenue Cycle Consultant Name Role Phone Jaxon Osborne MD Primary Care Provider +1- [phone] Encounter Details Date Type Department Care Team ([facility] st Contact Info) Description 04/20/2025 Orders Only [facility] CHC MED & PEDS [address] [place], [place] [phone] Jaxon Osborne MD [address] [place] [address] Generalized osteoarthritis (Primary Dx) Social History Tobacco [...] Description 10/05/2025 1:00 PM EST Office Visit [facility] ADULT DENTAL [address] [place] [address] Carly Mari documented as of this encounter Visit Diagnoses Diagnosis Generalized osteoarthritis- Primary Generalized osteoarthrosis, involving multiple sites documented in this encounter Additional Health Concerns Assessment Noted Time PHQ-9 Depression Total Score: 0 01/11/20 25 3:41 PM EDT documented as of this encounter Care Teams Revenue Cycle Consultant Relationship Specialty Start Date End Date Jaxon Osborne MD [address] [place] [address] PCP - General Internal Medicine 03/07/12 documented as of this encounter
--- OUTSIDE RECORDS SUMMARY | 2025-07-17 18:16 | XMS_ITS | Encounter Summary ---
Author Organization [employer] Address [address] [facility] 7 [place] [address] Care Team Providers Care Children'S Book Author Name Role Phone Jaxon Osborne MD Primary Care Provider +1- [phone] Reason for Visit * Reason Comments Med Refill Encounter Details Date Type Department Care Team ([facility] st Contact Info) Description 02/27/2025 Refill [facility] CHC MED & PEDS [address] [place], [place] [phone] Jaxon Osborne MD [address] [place] [address] Asthma, unspecified asthma severity, unspecified whether complicated, [...] Upcoming Encounters Date Type Department Care Team ([facility] st Contact Info) Description 10/05/2025 1:00 PM EST Office Visit [facility] ADULT DENTAL [address] [place] [address] Carly Mari documented as of this encounter Visit Diagnoses Diagnosis Asthma, unspecified asthma severity, unspecified whether complicated, unspecified whether persistent documented in this encounter Additional Health Concerns Assessment Noted Time PHQ-9 Depression Total Score: 0 01/11/20 25 3:41 PM EDT documented as of this encounter Care Teams Children'S Book Author Relationship Specialty Start Date End Date Jaxon Osborne MD [address] [place] [address] PCP - General Internal Medicine 03/07/12 documented as of this encounter
== END 2025-07-17 15:16 | disposition home or self-care (01) ==
LOC: HO.HUSH 14:35
PROVIDERS: PCP Internal Medicine; Visit Provider Urology
DX: C61 Malignant neoplasm of prostate (principal)
CPT/HCPCS: 99213; G2211

== ENCOUNTER → 2025-07-17 14:34 | Outpatient (BNVA) | payer MEDICARE, MEDICAID, SELFPAY | PROVIDERS: PCP Internal Medicine; Visit Provider Urology | DX: C61 Malignant neoplasm of prostate (principal) | CPT/HCPCS: 99212 ==

== ENCOUNTER 2025-10-17 09:32 | Outpatient (REF) | payer MEDICARE, MEDICAID, SELFPAY ==
--- OUTSIDE RECORDS SUMMARY | 2025-10-17 11:00 | XMS_ITS | Encounter Summary ---
Author Organization [email or web address] Address [address] [facility] 7 [place] [address] Care Team Providers Care Wad Compressor Operator Adjuster Name Role Phone Jaxon Osborne MD Primary Care Provider +1- [phone] Reason for Visit * Reason Comments Med Refill Encounter Details Date Type Department Care Team ([facility] st Contact Info) Description 02/27/2025 Refill [facility] CHC MED & PEDS [address] [place], [place] [phone] Jaxon Osborne MD [address] [place] [address] Asthma, unspecified asthma severity, unspecified whether complicated, [...] Care Team (Late st Contact Info) Description 11/05/2025 2:00 PM EST Office Visit [facility] ADULT DENTAL [address] [place] [address] Leoncio Oshea DMD 505 [place] [address] 04/09/2026 2:15 PM EDT Office Visit [facility] ADULT DENTAL [address] [place] [address] Carly Mari documented as of this encounter Visit Diagnoses Diagnosis Asthma, unspecified asthma severity, unspecified whether complicated, unspecified whether persistent documented in this encounter Additional Health Concerns Assessment Noted Time PHQ-9 Depression Total Score: 0 01/11/20 25 3:41 PM EDT documented as of this encounter Care Teams Wad Compressor Operator Adjuster Relationship Specialty Start Date End Date Jaxon Osborne MD [address] [place] [address] PCP - General Internal Medicine 03/07/12 documented as of this encounter
--- OUTSIDE RECORDS SUMMARY | 2025-10-17 11:00 | XMS_ITS | Encounter Summary ---
Author Organization [facility] Address [address] [place] [address] Care Team Providers Care Director Of Student Financial Services Name Role Phone Jaxon Osborne MD Primary Care Provider +1- [phone] Encounter Details Date Type Department Care Team (Latest Contact Info) Description 06/08/2022 Abstract [facility] CONVERSIONS Dental, Provider, DDS Social [...] Description 11/05/2025 2:00 PM EST Office Visit [facility] ADULT DENTAL [address] [place] [address] Leoncio Oshea DMD 505 [place] [address] 04/09/2026 2:15 PM EDT Office Visit [facility] ADULT DENTAL [address] [place] [address] Carly Mari documented as of this encounter Visit Diagnoses Not on filedocumented in this encounter Care Teams Director Of Student Financial Services Relationship Specialty Start Date End Date Jaxon Osborne MD [address] [place] [address] PCP - General Internal Medicine 03/07/12 documented as of this encounter
--- OUTSIDE RECORDS SUMMARY | 2025-10-17 11:00 | XMS_ITS | Encounter Summary ---
Author Organization [employer] Address 75 [facility] 7t [place] [address] Care Team Providers Care Director [facility] Name Role Phone Jaxon Osborne MD Primary Care Provider +1- [phone] Encounter Details Date Type Department Care Team ([facility] st Contact Info) Description 04/20/2025 Orders Only [facility] CHC MED & PEDS [address] [place], [place] [phone] Jaxon Osborne MD [address] [place] [address] Generalized osteoarthritis (Primary Dx) Social History Tobacco [...] Description 11/05/2025 2:00 PM EST Office Visit [facility] ADULT DENTAL 505 [place] [address] Leoncio Oshea DMD 505 [place] [address] 04/09/2026 2:15 PM EDT Office Visit [facility] ADULT DENTAL 505 [place] [address] Carly Mari documented as of this encounter Visit Diagnoses Diagnosis Generalized osteoarthritis- Primary Generalized osteoarthrosis, involving multiple sites documented in this encounter Additional Health Concerns Assessment Noted Time PHQ-9 Depression Total Score: 0 01/11/20 25 3:41 PM EDT documented as of this encounter Care Teams Director [facility] Sclerosis Center Relationship Specialty Start Date End Date Jaxon Osborne MD [address] [place] [address] PCP - General Internal Medicine 03/07/12 documented as of this encounter
--- OUTSIDE RECORDS SUMMARY | 2025-10-17 11:00 | XMS_ITS | Encounter Summary ---
Author Organization [employer] [facility] Address [address] [place] [address] Care Team Providers Care Portfolio Lead Name Role Phone Jaxon Osborne MD Primary Care Provider +1- [phone] Encounter Details Date Type Department Care Team (Latest Contact Info) Description 10/10/2020 Abstract [facility] CONVERSIONS Dental, Provider, DDS [...] Description 11/05/2025 2:00 PM EST Office Visit [facility] ADULT DENTAL [address] [place] [address] Leoncio Oshea DMD [address] [place] [address] 04/09/2026 2:15 PM EDT Office Visit [facility] ADULT DENTAL [address] [place] [address] Carly Mari documented as of this encounter Visit Diagnoses Not on filedocumented in this encounter Care Teams Portfolio Lead Relationship Specialty Start Date End Date Jaxon Osborne MD [address] [place] [address] PCP - General Internal Medicine 03/07/12 documented as of this encounter
--- OUTSIDE RECORDS SUMMARY | 2025-10-17 11:00 | XMS_ITS | Encounter Summary ---
Author Organization [employer] Address [address] [facility] 7t [place] [address] Care Team Providers Care Dairy Farmworker Name Role Phone Jaxon Osborne MD Primary Care Provider +1- [phone] Reason for Visit * Reason Onset Date Comments appt for implant with Sudol 08/28/2025 Encounter Details Date Type Department Care Team ([facility] st Contact Info) Description 08/28/2025 Telephone [facility] ADULT DENTAL [address] [place] [address] Brian La, NICOLE [address] [place] [address] appt for implant with Sudol Social History Tobacco Use Types Packs/Day Years [...] * Telephone Encounter - Obdulia Elena - 08/28/2025 1:44 PM EDT Patient seeking his appointment with DR. La from evaluation in May with DR. Oshea. Appointment no active request for this appointment. documented in this encounter Plan of Treatment Upcoming Encounters Date Type Department Care Team (Late st Contact Info) Description 11/05/2025 2:00 PM EST Office Visit [facility] ADULT DENTAL [address] [place] [address] Leoncio Oshea, NICOLE 505 [place] [address] 04/09/2026 2:15 PM EDT Office Visit [facility] ADULT DENTAL [address] [place] [address] Carly Mari documented as of this encounter Visit Diagnoses Not on filedocumented in this encounter Additional Health Concerns Assessment Noted Time PHQ-9 Depression Total Score: 0 01/11/20 25 3:41 PM EDT documented as of this encounter Care Teams Dairy Farmworker Relationship Specialty Start Date End Date Jaxon Osborne MD [address] [place] [address] PCP - General Internal Medicine 03/07/12 documented as of this encounter"
--- OUTSIDE RECORDS SUMMARY | 2025-10-17 11:00 | XMS_ITS | Encounter Summary ---
Author Organization [employer] [facility] Address [address] [place] [address] Care Team Providers Care Telecommunications Manager Name Role Phone Jaxon Osborne MD Primary Care Provider +1- [phone] Encounter Details Date Type Department Care Team (Latest Contact Info) Description 04/25/2019 Abstract [facility] CONVERSIONS Dental, Provider, DDS Social History [...] Description 11/05/2025 2:00 PM EST Office Visit [facility] ADULT DENTAL [address] [place] [address] Leoncio Oshea DMD [address] [place] [address] 04/09/2026 2:15 PM EDT Office Visit [facility] ADULT DENTAL [address] [place] [address] Carly Mari documented as of this encounter Visit Diagnoses Not on filedocumented in this encounter Care Teams Telecommunications Manager Relationship Specialty Start Date End Date Jaxon Osborne MD [address] [place] [address] PCP - General Internal Medicine 03/07/12 documented as of this encounter
--- OUTSIDE RECORDS SUMMARY | 2025-10-17 11:00 | XMS_ITS | Encounter Summary ---
Author Organization [employer] Address [address] [facility] 7 [place] [address] Care Team Providers Care Plaster Molder Name Role Phone Jaxon Osborne MD Primary Care Provider +1- [phone] Reason for Visit * Reason Comments Med Refill Encounter Details Date Type Department Care Team ([facility] st Contact Info) Description 09/10/2023 Refill [facility] CHC MED & PEDS [address] [place], [place] [phone] Jaxon Osborne MD [address] [place] [address] Social History Tobacco Use Types Packs/Day Years [...] Description 11/05/2025 2:00 PM EST Office Visit [facility] ADULT DENTAL [address] [place] [address] Leoncio Oshea DMD [address] [place] [address] 04/09/2026 2:15 PM EDT Office Visit [facility] ADULT DENTAL [address] [place] [address] Carly Mari documented as of this encounter Visit Diagnoses Not on filedocumented in this encounter Additional Health Concerns Assessment Noted Time PHQ-9 Depression Total Score: 0 01/09/20 23 2:46 PM EST documented as of this encounter Care Teams Plaster Molder Relationship Specialty Start Date End Date Jaxon Osborne MD [address] [place] [address] PCP - General Internal Medicine 03/07/12 documented as of this encounter
--- OUTSIDE RECORDS SUMMARY | 2025-10-17 11:00 | XMS_ITS | Clinical Summary ---
Author Organization [facility] Address [address] [place] [address] Phone Care Team Providers Care Manager Case Management Name Role Phone Jaxon Osborne MD Primary Care Provider +1 -[phone] Allergies No known active allergies Medications meloxicam [...] Encounters Date Type Department Care Team Description 08/28/2025 3:30 PM EDT Office Visit Orthopedic Surgery [address] [address] Javier Briggs DPM Ingrowing nail (Primary Dx); Dermatophytosis of nail; Verruca plantaris; Acquired hammer toe of right foot; Hammer toe of left foot 07/19/2025 11:00 AM EDT Office Visit Orthopedic Surgery [facility] [address] [address] Javier Briggs DPM Dermatophytosis of nail (Primary Dx); Ingrowing nail; Verruca plantaris; Acquired hammer toe of right foot; Hammer toe of left foot from Last 3 Months Surgical History Surgery Date Site/Laterality Comments OTHER SURGICAL HISTORY Bilateral PROCEDURE: TX ARTHRP ACETBLR/PROX FEM PROSTC AGRFT/ALGRFT; COMMENT: Right [...] on file Sexual Orientation Not on file Last Filed Vital Signs Vital Sign Reading [...] Upcoming Encounters Date Type Department Care Team ([facility] st Contact Info) Description 11/28/2025 3:30 PM EST Office Visit Orthopedic Surgery - [place] [address] [address] Javier Briggs, DPM [address] [address] Health Maintenance Due Date Last Done Comments Colorectal Cancer Screening: Colonoscopy 1964 Zoster Vaccines (1 of 2) 1983 RSV Immunization Adult Patients (1 - Risk 50-74 years 1-dose series) 2014 COVID-19 Vaccine (3 - Pfizer risk series) 04/24/2021 03/27/2021, 03/05/2021 Medicare Annual Wellness Visit 10/04/2022 Social Influencers of Health Screening 10/04/2022 Hypertension/CHF/CAD Annual BMP Blood Test 01/07/2024 01/06/2023 Depression Screening 11/01/2024 Influenza Vaccine (#1) 2025 , 09/07/2023, 09/10/2022, Additional history exists Cholesterol Screening (Lipid Panel) 10/06/2029 10/06/2024, 08/28/2021 DTaP,Tdap,and Td Vaccines (3 - Td or Tdap) 07/04/2035 [...] Results * Annual BMP Blood Test (01/06/2023) [facility] Annual BMP Blood Test abstracted Historical Provider HEALTH MAINTENANCE Final Result * Lipid panel (08/28/2021) [facility] Triglycerides 0 0 - 0 mg/dL Comment:no [...] Insurance MEDICARE MEDICAID - [place] Care Teams Manager Case Management Relationship Specialty Start Date End Date Jaxon Osborne MD [address] [place] [address] PCP - General Internal Medicine 06/24/22
--- OUTSIDE RECORDS SUMMARY | 2025-10-17 11:00 | XMS_ITS | Clinical Summary ---
Author Organization [employer] Address [address] [place] [address] 7 [place] [address] Care Team Providers Care Front Maker Lockstitch Name Role Phone Jaxon Osborne MD Primary [...] NEEDED 16 g 1 09/10/20 23 Active Additional Information Patient not taking.Reported on 10/04/2025 amoxicillin (Amoxil) 500 MG capsule Take 4 tabs (2 grams) 1 hour prior to dental procedure 4 capsule 3 04/17/20 24 Active amLODIPine (Norvasc) 5 MG tabletIndications: Essential hypertension Take 1 tablet (5 mg) by mouth Once per day. 90 tablet 3 10/06/20 24 Active cholecalciferol (Vitamin D3) 25 MCG (1000 UT) tabletIndications: Vitamin D deficiency TAKE 1 TABLET BY MOUTH EVERY MORNING 60 tablet 11 12/19/19 25 Active albuterol 108 (90 Base) MCG/ACT inhalerIndications :Asthma, unspecified asthma severity, unspecified whether complicated, unspecified whether persistent INHALE 2 PUFFS BY MOUTH EVERY 4 HOURS NEEDED FOR WHEEZING 18 g 5 02/28/20 25 Active amoxicillin (Amoxil) 500 MG capsule Take 4 tabs (2 grams) 1 hour prior to dental procedure 16 capsule 04/03/20 25 Active Diclofenac Sodium 1 % gelIndications:Gen eralized osteoarthritis To apply to the affected area 3 times a day 100 g 3 04/20/20 25 Active Additional Information Patient not taking.Reported on 10/04/2025 Active Problems Problem Noted Date Diagnosed Date Essential hypertension 01/05/2023 Chest pain 01/05/2023 Malignant tumor of prostate ([facility]/HCC) 02/02/2019 Chronic benign neutropenia 05/11/2017 Thrombocytopenic disorder 05/11/2017 Hyperplasia of prostate 05/06/2015 Generalized osteoarthritis 05/06/2010 Encounters Date Type Department Care Team Description 10/04/2025 2:15 PM EST Office Visit [facility] ADULT DENTAL [address] [place] [address] Carly Mari Dental calculus (Primary Dx); Dental plaque; Secondary dental caries associated with failed or defective dental denominational 09/21/2025 Orders Only [facility] ADULT DENTAL [address] [place] [address] Leoncio Oshea DMD 09/19/2025 2:00 PM EST Office Visit [facility] ADULT DENTAL [address] [place] [address] Deedee Rich, DDS 08/28/2025 Telephone [facility] ADULT DENTAL [address] [place] [address] Paige Lowery, DDS 08/28/2025 Telephone [facility] ADULT DENTAL [address] [place] [address] Brian La, NICOLE appt for implant with Sudol from Last 3 Months Immunizations Immunization Administration [...] Sign Reading Time Taken Comments Blood Pressure 124/84 10/04/2025 2:08 PM EST Pulse 56 07/04/2025 2:26 PM EDT Temperature [...] 2:00 PM EST Office Visit [facility] ADULT DENTAL [address] [place] [address] Leoncio Oshea, DMD [address] [place] [address] 04/09/2026 2:15 PM EDT Office Visit [facility] ADULT DENTAL [address] [place] [address] Carly Mari Health Maintenance Due Date Last Done Comments CT Colonography 1964 FIT DNA/Cologuard 1964 FIT 1964 FOBT 1965 Sigmoidoscopy 1965 Disability Screening 1964 Hepatitis A Vaccines (1 of 2 - Risk 2-dose series) 1983 Zoster Vaccines (1 of 2) 1983 RSV Patients and Patients Aged 60 years or older (1 - Risk 50-74 years 1-dose series) 2014 COVID-19 Vaccine (3 - Pfizer risk series) 04/24/2021 03/27/2021, 03/05/2021 SDOH Screening 03/02/2025 03/02/2024 Influenza Vaccine (#1) 2025 , 09/07/2023, 09/10/2022, Additional history exists Dental Prophylaxis 01/03/2026 10/04/2025, 0 04/04/2025, 10/18/2024, Additional history exists Alcohol/Substance Use Screening 01/10/2026 01/10/2025 Depression Screening 01/10/2026 01/10/2025, 01/11/20 25 Dental Oral Exam 04/05/2026 10/04/2025, 01/2025, 04/17/2024 Dental X-Ray: Bitewings 04/05/2026 04/04/20 25, 03/01/2025, 02/10/2024, Additional history exists Tobacco Screening 10/04/2026 10/04/2025 Dental X-Ray: Full Mouth 02/10/2027 02/10/2024, 08/01 [...] PERIODIC ORAL EVALUATION - ESTABLISHED PATIENT Routine 10/04/2025 2:15 PM EST Secondary dental caries associated with failed or defective dental denominational ORAL HYGIENE INSTRUCTIONS Routine 10/04/2025 2:15 PM EST Secondary dental caries associated with failed or defective dental denominational CASE PRESENTATION, DETAILED AND EXTENSIVE TREATMENT PLANNING Routine 10/04/2025 2:15 PM EST Secondary dental caries associated with failed or defective dental denominational Full PROPHYLAXIS - ADULT Routine 10/04/2025 2:15 PM EST Secondary dental caries associated with failed or defective dental denominational CASE PRESENTATION, DETAILED AND EXTENSIVE TREATMENT PLANNING Routine 09/19/2025 2:00 PM EST CONSULTATION - DIAGNOSTIC SERVICE PROVIDED BY DENTIST OR PHYSICIAN OTHER THAN REQUESTING DENTIST OR PHYSICIAN Routine 09/19/2025 2:00 PM EST BITEWINGS - 4 RADIOGRAPHIC IMAGES Routine 04/04/2025 [...] Recently Relevant to Health Maintenance Results * Hepatitis C Antibody with Reflex to HCV, RNA, Quantitative, Real-Time PCR (10/06/2024 3:56 PM EST) Hepatitis C Antibody Nonreactive Nonreactive [facility] Comment:Antibodies to HCV no t detected; does not exclude early acuteHCV infection. Blood Venous blood specimen / Unknown 10/06/2024 3:56 PM EST 10/06/2024 5:39 PM EST us Jaxon Osborne MD LAB BLOOD ORDERABLES Final Result [facility] [address] [place] [phone] * HIV-1/2 Antigen and Antibodies, Fourth Generation, with Reflexes (10/06/2024 3:56 PM EST) HIV AB/AG Nonreactive Nonreactive [facility] Comment:HIV-1 p24 Ag and/or HIV-1/HIV-2 Ab not detected.A test result that is nonreactive does not exclude thepossibility of exposure to or infection with HIV-1 and/orHIV-2. Nonreactive results in this assay for individualswith prior exposure to HIV-1 and/or HIV-2 may be due toantigen and antibody levels that are below the limit ofdetection of this assay.The [place] HIV Ag/Ab Combo assay result andsupplemental assay results should be interpreted inconjunction with the patient's clinical presentation,history and other laboratory results. If the results areinconsistent with clinical evidence, additional testing issuggested to confirm the result. Blood Venous blood specimen / Unknown 10/06/2024 3:56 PM EST 10/06/2024 5:39 PM EST us Jaxon Osborne MD LAB BLOOD ORDERABLES Final Result [facility] [address] [place] [phone] * Lipid Panel, Standard (10/06/2024 3:56 PM EST) Triglycerides 52 <150 mg/dL [facility] Comment:Desirable Triglyceri de: less than 150 mg/dLBorderline High Triglyceride 150-199 mg/dLHigh Triglyceride: 200-499 mg/dLVery High Triglyceride: greater than or equal to 5OO mg/dL Cholesterol 170 <200 mg/dL [facility] Comment:Desirable Cholestero l: less than 200 mg/dLBorderline High Cholesterol: 200-239 mg/dLHigh Cholesterol: greater than 239 mg/dL LDL Cholesterol Calculated 86 <100 mg/dL [facility] Comment:Desirable LDL: less than 100 mg/dLNear Optimal/Above Optimal LDL: 110- 129 mg/dLBorderline High LDL: 130-159 mg/dLHigh LDL: 160-189 mg/dLVery High LDL: greater than or equal to 190 mg/dL HDL Cholesterol 74 >40 mg/dL [facility] Comment:Desirable HDL: great er than 40 mg/dL Note: This HDL assay may give artificially low results in patients with liver disease. Blood Venous blood specimen / Unknown 10/06/2024 3:56 PM EST 10/06/2024 5:39 PM EST us Jaxon Osborne MD LAB BLOOD ORDERABLES Final Result [facility] [address] [place] [phone] [phone] from Last 3 Months or Most Recently Relevant to Health Maintenance Insurance MEDICARE [facility] STAND ADULT Care Teams Front Maker Lockstitch Relationship Specialty Start Date End Date Jaxon Osborne MD [address] [place] [address] PCP - General Internal Medicine 03/07/12
--- OUTSIDE RECORDS SUMMARY | 2025-10-17 11:01 | XMS_ITS | Encounter Summary ---
Author Organization [employer] Address [address] [facility] 7t [place] [address] Care Team Providers Care Cross Cut Sawyer Name Role Phone Jaxon Osborne MD Primary Care Provider +1- [phone] Reason for Visit * Reason Onset Date Comments FYI 01/30/2025 Encounter Details Date Type Department Care Team ([facility] st Contact Info) Description 01/30/2025 Telephone [facility] MEDICINE [address] [place] [address] Jaxon Osborne MD [address] [place] [address] FYI Social History Tobacco Use Types Packs/Day [...] placedthe call please return call to pt. [phone] documented in this encounter Plan of Treatment Upcoming Encounters Date Type Department Care Team (Late st Contact Info) Description 11/05/2025 2:00 PM EST Office Visit [facility] ADULT DENTAL [address] [place] [address] Leoncio Oshea DMD [address] [place] [address] 04/09/2026 2:15 PM EDT Office Visit [facility] ADULT DENTAL [address] [place] [address] Carly Mari documented as of this encounter Visit Diagnoses Not on filedocumented in this encounter Additional Health Concerns Assessment Noted Time PHQ-9 Depression Total Score: 0 01/11/20 25 3:41 PM EDT documented as of this encounter Care Teams Cross Cut Sawyer Relationship Specialty Start Date End Date Jaxon Osborne MD [address] [place] [address] PCP - General Internal Medicine 03/07/12 documented as of this encounter
--- OUTSIDE RECORDS SUMMARY | 2025-10-17 11:01 | XMS_ITS | Encounter Summary ---
Author Organization [employer] [facility] Address [address] [place] [id number] Care Team Providers Care Laundry Laborer Name Role Phone Jaxon Osborne MD Primary Care Provider [phone] Reason for Visit * Reason Comments Med Refill Encounter Details Date Type Department Care Team (Late st Contact Info) Description 06/23/2023 Refill [facility] [address] [place] [address] Jaxon Osborne MD [address] [place] [address] Social History Tobacco Use Types Packs/Day Years [...] Description 11/05/2025 2:00 PM EST Office Visit [facility] [address] [place] [address] Leoncio Oshea DMD [address] [place], [place] [phone] 04/09/2026 2:15 PM EDT Office Visit [facility] [address] [place] [address] Carly Mari documented as of this encounter Visit Diagnoses Not on filedocumented in this encounter Additional Health Concerns Assessment Noted Time PHQ-9 Depression Total Score: 0 01/09/20 23 2:46 PM EST documented as of this encounter Care Teams Laundry Laborer Relationship Specialty Start Date End Date Jaxon Osborne MD [address] [place] [address] PCP - General Internal Medicine 03/07/12 documented as of this encounter
--- OUTSIDE RECORDS SUMMARY | 2025-10-17 11:01 | XMS_ITS | Encounter Summary ---
Author Organization [employer] Address [address] [facility] [address] [place] [address] Care Team Providers Care Customer Engagement Analyst Name Role Phone Jaxon Osborne MD Primary Care Provider [phone] Reason for Visit * Reason Onset Date Comments appt 01/02/2025 Encounter Details Date Type Department Care Team ([facility] st Contact Info) Description 01/02/2025 Telephone [facility] [address] [place], [place] [phone] Leoncio Oshea, DMD [address] [place], [place] [phone] appt Social History Tobacco Use Types Packs/Day [...] Description 11/05/2025 2:00 PM EST Office Visit [facility] [address] [place] [address] Leoncio Oshea DMD [address] [place] [address] 04/09/2026 2:15 PM EDT Office Visit [facility] [address] [place] [address] Carly Mari documented as of this encounter Visit Diagnoses Not on filedocumented in this encounter Additional Health Concerns Assessment Noted Time PHQ-9 Depression Total Score: 0 01/09/20 23 2:46 PM EST documented as of this encounter Care Teams Customer Engagement Analyst Relationship Specialty Start Date End Date Jaxon Osborne MD [address] [place] [address] PCP - General Internal Medicine 03/07/12 documented as of this encounter
[2025-10-17 12:27] LABS: Prostate Specific Antigen 5.65 ng/mL (<0.05-4.0)
== END 2025-10-17 09:33 | disposition home or self-care (01) ==
LOC: HO.LAB 09:32
PROVIDERS: PCP Internal Medicine; Visit Provider Urology
DX: C61 Malignant neoplasm of prostate (principal); Z12.5 Encounter for screening for malignant neoplasm of prostate
CPT/HCPCS: 36415; 84153; 84403